=== PATIENT | female | born 1955 | race Caucasian/White ===

== ENCOUNTER 2024-05-11 14:14 | Outpatient (AMB) | payer MEDICARE, BC, SELFPAY ==
[2024-05-11 14:46] VITALS: BP 138/82; PULSE 78; O2SAT 98; BMI 37.0
--- NOTE | 2024-05-11 14:46 | A.OFFVIS_ITS ---
Vital Signs 05/11/24 14:46 Height 5 ft 7 in Weight 236 lb 8.896 oz BMI 37.0 BP 138/82 Blood Pressure Location Lt brachial Position Sitting Pulse 78 Pulse Source Pulse Oximeter Pulse Oximetry (%) 98 Oxygen Delivery Method Room Air Intake Visit Reasons: RA//RECORDS RECEIVED Intake Note: Patient presents today for rheumatoid arthritis, She was last seen [facility] the [facility] by Dr. Foster on 01/12/24. She is requesting refill of Colchicine today. Allergies cat dander Allergy (Mild, Verified 05/11/24 14:52) Watery Eye environmental allergies Allergy (Mild, Verified 05/11/24 14:52) Itching ragweed pollen Allergy (Mild, Verified 05/11/24 14:52) Itchy Eyes goldenrod Allergy (Mild, Uncoded 05/11/24 14:52) Sneezing oak trees Allergy (Mild, Uncoded 05/11/24 14:52) Sneezing Medication List - Last Reconciled 05/11/24 by Flavio Foster MD allopurinol 300 mg PO DAILY colchicine 1.2 mg PO DAILY omeprazole 40 mg PO DAILY tofacitinib (Xeljanz) 5 mg PO DAILY HPI HPI RA//RECORDS RECEIVED: Details: No rheumatoid arthritis flares. Right knee pain was controlled until last month. She has difficulty time walking. She has gained weight. No gout flares. Rheumatology history: History of rheumatoid arthritis seronegative with onset 2008. Since sulfasalazine was ineffective and she had GI side effects. Failed Enbrel 11/09/2010 to 12/11/2011, Humira 12/11/2011 to 06/11/2017, Cimzia 06/11/2018 to 11/09/2017. Xeljanz 11/09/2017-. Osteoarthritis right knee cortisone injection December 2023. Physical Exam Vital Signs: Last Vital Signs Pulse 78 05/11/24 14:46 BP 138/82 05/11/24 14:46 Pulse Ox 98 05/11/24 14:46 Oxygen Delivery Method Room Air 05/11/24 14:46 BMI result Body Mass Index 37.0 Const General: cooperative and healthy appearing Resp Auscultation: clear to auscultation bilaterally Cardio Rate: regular rate Rhythm: regular rhythm Heart sounds: S1 normal heart sound present and S2 normal heart sound present Extrem Other: Tender right MCPs and PIP knees. No synovitis of any joints, good range of motion of upper extremities. Tender to palpate right knee with mild effusion. Knee flexion 90 degrees of bilateral knees Office Procedures AMB Joint Injection/Aspiration Joint Injection/Aspiration Primary Site: right knee Prep: site was prepped using aseptic technique Injected: 40 mg of, Kenalog and 1% plain lidocaine Approach Used: anteromedial Procedure: The patient tolerated the procedure well Coding 65200 - Large joint Procedure code (CPT) selection complete Office Meds Kenalog 40 mg/mL suspension for injection Performing Provider: Flavio Foster MD Performing Location: [facility] Administered by: Flavio Foster MD on 05/11/24 23:46 Dose Route Admin Location Dispensed Lot Number Expiration Date [facility][NOTE 3] [employer] 40 mg intra-articular Right knee 1 mL AP [id number] [employer] lidocaine (PF) 10 mg/mL (1 %) injection solution Performing Provider: Flavio Foster MD Performing Location: [facility] Administered by: Flavio Foster MD on 05/11/24 23:46 Dose Route Admin Location Dispensed Lot Number Expiration Date [facility][NOTE 3] [employer] Equipment [employer]r 10 mg Infiltration Right knee 2 mL [id number] [facility] Assessment & Plan Assessment & Plan (1) Rheumatoid arthritis: Comment: Controlled on current regimen Code(s): M06.9 - Rheumatoid arthritis, unspecified Category: Medical Plan: Continue Xeljanz 5 mg daily Labs for disease and drug monitoring ordered including fasting lipid panel Return to clinic in 3 months (2) Osteoarthritis of knees, bilateral: Comment: Right knee pain is worse than left knee pain. She received benefit with right knee cortisone injection last visit in December. Code(s): M17.0 - Bilateral primary osteoarthritis of knee Category: Medical Plan: Right knee cortisone injection was given this visit Bilateral knee x-rays have been ordered for baseline at [facility] (3) Gout: Comment: Controlled on current regimen. Goal uric acid level is less than 6 Code(s): M10.9 - Gout, unspecified Category: Medical Qualifiers: Gout site: unspecified site Gout etiology: unspecified cause Chronicity: chronic Presence of tophus: without tophus Qualified Code(s): M1A.9XX0 - Chronic gout, unspecified, without tophus (tophi) Plan: If uric acid level is less than 6, we will have patient repeat uric acid level in 1 month. If uric acid level remains less than 6, can discontinue colchicine and continue allopurinol 300 mg daily. 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 Category: Medical Plan: See above Orders: Orders Aspartate Amino Transferase Today M06.9 - Rheumatoid arthritis, unspecified, M17.0 - Bilateral primary osteoarthritis of knee, Z79.899 - Other superintendent [employer] (current) drug therapy Complete Blood Count Auto Diff Today M06.9 - Rheumatoid arthritis, unspecified, Z79.899 - Other superintendent [employer] (current) drug therapy Creatinine Today M06.9 - Rheumatoid arthritis, unspecified, Z79.899 - Other senior care (current) drug therapy XR knee LT 2V Today M17.0 - Bilateral primary osteoarthritis of knee AMB Joint Injection/Aspiration Today M17.0 - Bilateral primary osteoarthritis of knee Alanine Aminotransferase Today M06.9 - Rheumatoid arthritis, unspecified, M17.0 - Bilateral primary osteoarthritis of knee, Z79.899 - Other superintendent [employer] (current) drug therapy C Reactive Protein Today M06.9 - Rheumatoid arthritis, unspecified, Z79.899 - Other superintendent [employer] (current) drug therapy Erythrocyte Sedimentation Rate Today M06.9 - Rheumatoid arthritis, unspecified, Z79.899 - Other senior care (current) drug therapy Hepatitis B,C Profile Today M06.9 - Rheumatoid arthritis, unspecified, Z79.899 - Other senior care (current) drug therapy T Spot TB Today M06.9 - Rheumatoid arthritis, unspecified, Z79.899 - Other senior care (current) drug therapy Uric Acid Today M10.9 - Gout, unspecified Lipid Panel Today M06.9 - Rheumatoid arthritis, unspecified, Z79.899 - Other superintendent [employer] (current) drug therapy XR knee RT 2V Today M17.0 - Bilateral primary osteoarthritis of knee Medications: New colchicine 1.2 mg (2 x 0.6 mg) PO DAILY 30 tabs 5RF lidocaine (PF) 10 mg Infiltration ONCE 2 mL 0RF M17.0 - Bilateral primary osteoarthritis of knee Kenalog (triamcinolone acetonide) 40 mg intra-articular ONCE 1 mL 0RF NS M17.0 - Bilateral primary osteoarthritis of knee Coding Level of Care Code Est Pt Level 4 (02779) Complex EM visit Add On G2211 Diagnoses Rheumatoid arthritis M06.9 Osteoarthritis of knees, bilateral M17.0 Chronic gout without tophus, unspecified cause, unspecified site M1A.9XX0 Gout site: unspecified site Gout etiology: unspecified cause Chronicity: chronic Presence of tophus: without tophus Other superintendent [employer] (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
== END 2024-05-11 15:43 | disposition home or self-care (01) ==
PROVIDERS: PCP Internal Medicine; Visit Provider Internal Medicine Rheumatology
DX: M06.9 Rheumatoid arthritis, unspecified (principal); M17.0 Bilateral primary osteoarthritis of knee; M1A.9XX0 Chronic gout, unspecified, without tophus (tophi); Z79.899 Other long term (current) drug therapy
CPT/HCPCS: 20610; 99214

== ENCOUNTER → 2024-05-11 14:14 | Outpatient (BNVA) | payer MEDICARE, BC, SELFPAY | PROVIDERS: PCP Internal Medicine; Visit Provider Internal Medicine Rheumatology | DX: M06.9 Rheumatoid arthritis, unspecified (principal); M17.0 Bilateral primary osteoarthritis of knee; M1A.9XX0 Chronic gout, unspecified, without tophus (tophi); Z79.899 Other long term (current) drug therapy | CPT/HCPCS: 20610; 99212; J2003; J3300 ==

== ENCOUNTER 2024-08-04 13:53 | Outpatient (REF) | payer MEDICARE, BC, SELFPAY ==
--- NOTE | ~2024-08-04 | XR_ITS ---
CLINICAL HISTORY: M17.0 - Bilateral primary osteoarthritis of knee 2 view bilateral knee Comparison: None Findings: There is medial joint space compartment narrowing. There are moderate-sized osteophytes and mild subchondral geodes. Small osteophytes within lateral compartment. There are ozuqo-[id number]-oaevvvoa patellofemoral osteophytes with mild joint space narrowing. Small suprapatellar effusion. There is osteopenia. No radiopaque foreign body. No acute fractures IMPRESSION: Tricompartmental osteoarthrosis most significant within the medial and patellofemoral compartments. Small suprapatellar effusion Osteopenia This document has been electronically signed by: Chago Antunez MD on 08/05/2024 08:27:33
--- NOTE | ~2024-08-04 | XR_ITS ---
CLINICAL HISTORY: M17.0 - Bilateral primary osteoarthritis of knee 2 view bilateral knee Comparison: None Findings: Bones intact. No dislocations. There is mild medial joint space compartment narrowing. There are tricompartmental osteophytes. There is a small suprapatellar effusion There is 2.6 cm density within the subcutaneous soft tissues lateral to the knee There is osteopenia. No radiopaque foreign body. IMPRESSION: Tricompartmental osteoarthrosis, no acute fractures Small suprapatellar effusion. Soft tissue density measuring proximally 2.6 cm within subcutaneous soft tissues lateral to knee, most likely mild soft tissue edema can not exclude subcutaneous lesion correlate with physical exam Osteopenia This document has been electronically signed by: Chago Antunez MD on 08/05/2024 08:26:12
[2024-08-04 14:28] LABS: MANUAL DIFF FLAG NO
[2024-08-04 14:44] LABS: Basophils Percent Auto 0.6 % (0-2); Eosinophils Absolute Auto 0.2 X10*3/uL (0.0-0.4); Hemoglobin 14.3 g/dl (12.0-16.0); Imm Gran Abs Auto 0.02 X10*3/uL (0.00-0.03); Imm Gran Pct Auto 0.3 % (0.0-0.4); Lymphocytes Absolute Auto 0.9 X10*3/uL (1.2-4.9); Lymphocytes Percent Auto 13.5 % (20-40); Mean Corpuscular HGB Conc 33.3 g/dl (31.0-35.0); Mean Corpuscular Hemoglobin 31.9 pg (27.0-33.0); Mean Platelet Volume 9.9 fL (9.4-12.3); Monocytes Absolute Auto 0.6 X10*3/uL (0.1-1.2); Monocytes Percent Auto 9.3 % (2-11); Neutrophils Absolute Auto 4.8 x10*3/uL (2.0-8.3); Neutrophils Percent Auto 73.3 % (45-73); Platelet Count 263 X10*3/uL (160-400); Red Blood Count 4.48 X10*6/uL (4.20-5.50); Red Cell Distribution Width 13.7 % (11.0-16.0); White Blood Count 6.6 X10*3/uL (4.8-10.8)
--- OUTSIDE RECORDS SUMMARY | 2024-08-04 15:16 | XMS_ITS | Data Portability ---
Author Organization [place] - [facility], Allergy Address [address] [address] Care Team Providers Care Set Off Press Operator Name Role Phone PETAR BARRIOS Primary Care Provider Assessment No assessment recorded. Plan of Treatment Reminders Order Date Submit Date Provider Last Modified By Organization Details Last Modified Time Details Appointments Hearing Test 2024 01:00P M Hearing Test Not available Not available Not available Establish ed 15 2024 01:30P M DOUG BARAJAS MD Not available Not available Not available Lab None recorded. Referral None recorded. Procedures None recorded. Surgeries None recorded. Imaging None recorded. Medication Orders fluticaso ne propionat e 50 mcg/actua tion nasal spray,[facility] 2023 024 [id number], [address] [place], [address], 02/13/2024 13:28:30 cetirizin e 10 mg tablet 2023 024 [id number], [address] [place], [address], 02/13/2024 13:28:31 Patient TargetsNo targets recorded. Patient InstructionsNo instructions recorded. Reason for Referral None Reported. Results Created Date Observation Date Name Description Value Unit Range Abnormal Flag Note LastModifiedBy Organization Detail LastModifiedTime 02/11/2009/09/2022 imagi ng/di agnos tic resul t No observ ation record ed. [email or web address] Not Available 17:56:42 02/11/20 06/02/2023 imagi ng/di agnos tic resul t No observ ation record ed. [email or web address] Not Available 17:56:53 02/11/20 24 06/02/2023 audio gram No observ ation record ed. [email or web address] Not Available 17:57:04 Result Notes None recorded. Problems Name Problem SNOMED Code Status Onset Date Resolution Date Notes Provider Name and Address Organization Details Recorded Time Chronic serous otitis media of right ear 925855198 Active 2022 Chronic serous otitis media, right ear; Note: Date Diagnosed : 3 12:33 PM (H65.21) Not Available [facility] 4 03:19:55 Sensorine ural hearing loss in left ear 07814690245 109 Active 2022 Sensorine ural hearing loss, unilatera l, left ear, with restricte d hearing on the contralat eral side; Note: Date Diagnosed : 3 11:17 AM (H90.A22) Not Available [facility] 4 03:19:54 Disorder of nasal sinus 1347381 Active 2022 Unspecifi ed disorder of nose and nasal sinuses; Note: Date Diagnosed : 3 1:17 AM (J34.9) Not Available [facility] 4 03:19:54 Disorder of the nose 03719452 Active 2022 Unspecifi ed disorder of nose and nasal sinuses; Note: Date Diagnosed : 3 1:17 AM (J34.9) Not Available [facility] 4 03:19:54 Sensorine ural hearing loss of bilateral ears 109952371 Active 2022 Sensorine ural hearing loss, bilateral ; Note: Date Diagnosed : 3 10:51 AM (H90.3) Not Available [facility] 4 03:19:54 Disorder of right Eustachia n tube 27260806600 12712 Active 2022 Other specified disorders of Eustachia n tube, right ear; Note: Date Diagnosed : 3 10:51 AM (H69.81) Not Available [facility] 4 03:19:55 Mixed conductiv e and sensorine ural hearing loss of right ear 17164331456 105 Active 2022 Mixed conductiv e and sensorine ural hearing loss, unilatera l, right ear with restricte d hearing on the contralat eral side; Note: Date Diagnosed : 3 10:51 AM (H90.A31) Not Available [facility] 4 03:19:55 Allergic rhinitis 87871556 Active 2023 DOUG BARAJAS MD [address] [place] [address], [place], [address] , [facility] - [facility] 4 13:27:40 Problem Notes None recorded. Procedures Surgical History None recorded. Imaging Results Imaging Date Name Status LastModified by [facility] Details LastModified Time 09/09/2022 imaging/diagno stic result completed [email or web address] Information not available 02/11/2024 17:56:42 06/02/2023 imaging/diagno stic result completed [email or web address] Information not available 02/11/2024 17:56:53 06/02/2023 audiogram completed [email or web address] Information not available 02/11/2024 17:57:04 Procedure Notes None recorded. Medical Equipment None Reported. Allergies No known drug allergies Medications Name Sig Start Date Stop Date Status Note LastModified by Organization Details LastModified Time cetirizin e 10 mg tablet TAKE 1 TABLET BY MOUTH EVERY DAY FOR 30 DAYS 2023 active Not Available Not Available Not Avai lable ciproflox acin 250 mg tablet TAKE 1 TABLET (250 MG TOTAL) BY MOUTH IN THE MORNING AND IN THE EVENING FOR 5 DAYS 02/12 completed Not Available Not Available Not Available ciproflox acin 500 mg tablet TAKE 1 TABLET BY MOUTH TWICE A DAY FOR 7 DAYS 02/12 completed Not Available Not Available Not Available omeprazol e 40 mg capsule,d elayed release active Medicati on ID: [id number] B rand Name: omeprazo le Send Method: E-Prescr ibed Sub s Allowed: subs OK Medic ationGen ericName : omeprazo le Not Available Not Available Not Available ofloxacin 0.3 % ear drops INSTILL 5 DROP IN AFFECTED EARS(S) TWICE A DAY DIRECTED active Not Available Not Available No t Available allopurin ol 300 mg tablet active Medicati on ID: [id number] B rand Name: allopuri nol Send Method: E-Prescr ibed Sub s Allowed: subs OK Medic ationGen ericName : allopuri nol Not Available Not Available Not Available ergocalci ferol (vitamin D2) 1,250 mcg (50,000 unit) capsule TAKE 1 CAPSULE (50,000 UNITS TOTAL) BY MOUTH ONCE WEEKLY active Not Available Not Available No t Available colchicin e 0.6 mg tablet active Medicati on ID: [id number] B rand Name: colchici ne Send Method: E-Prescr ibed Sub s Allowed: subs OK Medic ationGen ericName : colchici ne Not Available Not Available Not Available fluticaso ne propionat e 50 mcg/actua tion nasal spray,[employer] pension [place] 2 sprays every day by intranas al route for 30 days. active Not Available Not Available No t Available rosuvasta tin 5 mg tablet TAKE 1 TABLET BY MOUTH EVERY DAY active Not Available Not Available No t Available Xeljanz 5 mg tablet active Not Available Not Available No t Available Vitals Date Recorded Body height Body mass index (BMI) Body weight Provider Name and Address Organization Details Last Updated DateTime 02/13/2024 170.18 cm 36 kg/m2 186650.25 g Heather Villalta [place] - [facility] 02/13/2024 13:12:27 Social History None recorded. Functional Status None recorded. Mental Status None recorded. Family History Nothing Reported Notes:Ears: Hearing loss aft er age 19 - brother(s). Hearing loss before age 20 - brother(s). Cardiovascular: Heart disease in a female, diagnosed at unknown age - mother. Medical History Condition Response Allergies/Hayfever Y GERD/Reflux Y Gynecological HistoryNo gynecological history recorded. Obstetrics History GPAL:G 0 P 0 0 0 0 Past Encounters Encounter ID Performer Location Encounter Start Date Encounter Closed Date Diagnosis/Indication Diagnosis SNOMED-CT Code Diagnosis ICD10 Code Diagnosis Note [id number] DOUG BARAJAS MD [facility] [address] [place] [address] 02/13/2024 13:05:43 02/13/2024 13:37:28 Allergic rhinitis [id number] J30.9 68-year-ol d female with a history of allergic rhinitis presents with right-side d ear pain. It was previously more severe and shooting and is now more sore. The tube is in place and patent. There is no evidence of ear infection. She has not been on her allergy shots with Dr. Wagner and is not taking any allergy medication s, so we did discuss that that allergies could be a risk factor for the pain. I sent in antihistam nathanael and nasal steroids and she will resume her allergy injections . We can evaluate for other source of referred pain with FOL if no improvemen t in the next few weeks. She will call us and otherwise we will see her back in 6 months to check the tube. Disorder o f right Eustachian tube [id number] 232957 H69.81 Health Concerns Section Related Observation LastModified by Organization Detai ls LastModified Time None Recorded Concern Status LastModified by Organization Details LastModified Time None Recorded Advance Directives Directive None Recorded Payers Encounter Date Sequence Insurance Name Policy Number Policy Solo Covered Member ID Solo Member ID Guarantor Name 02/13/2024 1 [place] [employer] Flaquita Cali Ish [id number] 20 Flaquita Ish 02/13/2024 2 [place] [employer] 104 Flaquita Cali Ish [id number] Flaquita Ish Notes Date Note Type Note Provider Name and Address Organization Details Recorded Time 02/13/2024 text/html Shooting pain la in right ear, better by Friday. Pain stopped as of last night, but still sore on the right. Has not been getting allergy shots. Feels there has been some nasal congestion. Has had frequent URIs. PV: 67-year-old female with a long-standing hearing loss in a history of right tympanostomy tube placed by Dr. Gonzalez today with effusion for over a year. Audiogram in Dr. Wagner's office in August showed right year severe to profound mixed loss and left moderate tosevere sensorineural loss. Tube placed last May, NPL showed no mass. DOUG BARAJAS MD [address] [place] [address], [place], [address], [place] - [facility] 02/13/2024 17:41:42 OBGyn Episode No OBEpisode recorded.
--- OUTSIDE RECORDS SUMMARY | 2024-08-04 15:16 | XMS_ITS | Clinical Summary ---
Author Organization [facility] it Address [address] [place] [address] Care Team Providers Care Warehouse Coordinator Name Role Phone Vincent Polanco MD Primary Care Provider [phone] Encounters Date Type Department Care Team Description 05/14/2024 Telephone Nuclear Auxiliary Operator - [address] [place] [id number] Amy Ceballos MA Medicare Annual Wellness Visit Subsequent (AWV DUE 2023) from Last 3 Months Surgical History Surgery Date Site/Laterality Comments OTHER SURGICAL HISTORY 10/26 PROCEDURE: [facility] DILATION & CURETTAGE DX&/THER NONOBSTETRIC; COMMENT: 2.5 cm benign polyp removed SHOULDER SURGERY 04/27 PROCEDURE: [facility] UNLISTED PROCEDURE SHOULDER; COMMENT: bone spur and dog bite repair ESOPHAGOGASTRODUODENOSCOPY 10/09/07 PROCEDURE: [facility] EGD TRANSORAL BIOPSY SINGLE/MULTIPLE; COMMENT: Small hiatal hernia, gastric polyp removed:normal mucosa, gastric bx:reactive gastropathy COLONOSCOPY 10/09/07 PROCEDURE: HISTORICAL COLONOSCOPY; COMMENT: Up to cecum, good preparation, normal ROTATOR CUFF REPAIR ?2002 PROCEDURE: HISTORICAL ROTATOR CUFF REPAIR; COMMENT: right - ? just decompressive surgey OTHER SURGICAL HISTORY 12/2019 Right PROCEDURE: [place] UNLISTED PROCEDURE MIDDLE EAR; COMMENT: myringotomy and tube Medical History Medical History Date Comments Unspecified hearing loss 10/18/2005 DX:Unsp ecified hearing loss Irregular menstrual cycle 11-23-04 DX:Irr egular menstrual cycle; COMMENT: EMB=tissue normal Insomnia, unspecified 09/15/2006 DX:Insomni a, unspecified Anxiety state, unspecified 2005 DX:An xiety state, unspecified Other abnormal Papanicolaou smear of cervix and cervical HPV(795.09) 5-6-05 DX:Other abnormal Papa nicolaou smear of cervix and cervical HPV(795.09); COMMENT: ASCUS with negative HPV Rheumatoid arthritis(714.0) 03/27/2010 DX:R heumatoid arthritis(714.0) Elevated transaminase level 08/20/2019 DX:E levated transaminase level Family History Medical History Relation Name Comments Heart attack Father Heart attack Mother Breast cancer Neg Hx Relation Name Status Comments Father Mother Social History Tobacco Use Types Packs/Day Years Used Date Smoking Tobacco: Never Smokeless Tobacco: Never Alcohol Use Standard Drinks/Week Comments Yes 0 (1 standard drink = 0.6 oz pur e alcohol) Comments Unknown Sex and Gender Information Value Date Recorded Sex Assigned at Not on file Legal Sex Female 11:34 AM EST Gender Identity Not on file Sexual Orientation Not on file Obstetrics History Last Filed Vital Signs Vital Sign Reading Time Taken Comments Blood Pressure 152/85 10/22/2023 1:19 PM EDT aut o Pulse 86 10/22/2023 1:19 PM EDT Temperature - - Respiratory Rate - - Oxygen Saturation - - Inhaled Oxygen Concentration - - Weight 107 kg (236 lb 14.4 oz) 10/22/2023 1:19 P M EDT Height 170.2 cm (5' 7 ) 10/22/2023 1:19 PM EDT Body Mass Index 37.1 10/22/2023 1:19 PM EDT Plan of Treatment Health Maintenance Due Date Last Done Comments Hepatitis A Vaccines (1 of 2 - Risk 2-dose series) 1973 Zoster Vaccines (1 of 2) 2004 Cholesterol Screening (Lipid Panel) 05/21/2022 Colorectal Cancer Screening: Colonoscopy 05/21/2022 Depression Screening 05/21/2022 Falls Risk Assessment 05/21/2022 Hepatitis C Screening 05/21/2022 Medicare Annual Wellness Visit 05/21/2022 Osteoporosis Screening (Bone Density Screening) 05/21/2022 Social Influencers of Health Screening 05/21/2022 COVID-19 Vaccine ( season) 2024 07/17/2023, 09/27/2021, 10/08/2020, Additional history exists Influenza Vaccine (#1) 2024 3, 05/29/2022, 04/25/2021, Additional history exists Breast Cancer Screening 04/11/2025 04/11/20, 10/16/2021, 10/11/2020, Additional history exists RSV Immunization Patients 60+ Years Old (1 - 1-dose 75+ series) 2029 DTaP,Tdap,and Td Vaccines (3 - Td or Tdap) 10/08/2032 10/08/2022, 09/29/2012 Pneumococcal Vaccine: 50+ Years Completed 03/20/2020, 09/12/2014, 08/28/2010 HIB Vaccines Aged Out No longer eligi ble based on patient's age to complete this topic HPV Vaccines Aged Out No longer eligi ble based on patient's age to complete this topic Hepatitis B Vaccines Aged Out No long er eligible based on patient's age to complete this topic IPV Vaccines Aged Out No longer eligi ble based on patient's age to complete this topic MMR Vaccines Aged Out No longer eligi ble based on patient's age to complete this topic Meningococcal ACWY Vaccine Aged Out N o longer eligible based on patient's age to complete this topic RSV Immunization Patients Under 20 months Aged Out No longer eligible based on patient's age to complete this topic Varicella Vaccines Aged Out No longer eligible based on patient's age to complete this topic Procedures Procedure Name Priority Date/Time Associated Diagnosis Comments [facility] SCREENING DIGITAL Routine 04/11/2023 5:06 PM EDT Encounter for screening mammogram for malignant neoplasm of breast from Last 3 Months or Most Recently Relevant to Health Maintenance Results * [facility] SCREENING DIGITAL (04/11/2023 5:06 PM EDT) Anatomical Region Laterality Modality Mammography 04/11/2023 2:09 PM EDT Narrative 04/11/2023 5:06 PM EDT [facility] Diagnostic Imaging Department [address] [place] [id number] Patient: ??FLAQUITA MA ?/Age/Sex: 1955 - 67 - F Unit#: ??[id number] ? Location/Status: ??SPDIMAM/REG CLI ? Mnemonic/Ordering Site: ??DIGSC/SPMAM Ordering Physician: ??BLOSSOM ABRAMS MD [facility] Screening Digital - 04/11/23 - [id number] Report Status:Signed EXAM: [facility] Screening Digital EXAM DATE AND TIME: 04/11/2023 2:37 PM HISTORY: ??Screening. COMPARISON: ??10/16/21, 10/17/20, 10/11/20, 05/31/19 TECHNIQUE: Bilateral digital breast tomosynthesis was performed in the CC and MLO projections. Computer aided detection with firstSTREET for [employer] 3D 3.1 was employed. TISSUE DENSITY: b. There are scattered areas of fibroglandular density. FINDINGS: A small group of microcalcifications is seen in the medial left breast, middle depth, with an associated tissue asymmetry. Spot compression magnification views are recommended for further assessment. No mass or suspicious microcalcifications is seen in the right breast. No architectural distortion is identified. Vascular calcification is noted. The skin is unremarkable. IMPRESSION: 1. Grouped microcalcifications in the left breast, for which additional views are recommended. The patient will be called back. 2. Stable mammographic appearance of the right breast. No evidence of malignancy is seen. BI-RADS: ??Category 0: Incomplete - Need Additional Imaging Evaluation RECOMMENDATION(S): 1: Special mammographic view(s) needed LEFT Dictating Physician: ??REID GEORGE MD Electronically Signed by: ??REID GEORGE MD Dic Date/Time: ??10/20/23 1704 Sign date/Time: ??04/11/23 1706 Procedure Note Reid George MD - 07/29/2023 [facility] Diagnostic Imaging Department [address] [place] [address] Patient: FRANCESCAFLAQUITA /Age/Sex: 1955 67 - F Unit#: [id number] Location/Status: [facility] CLI Mnemonic/Ordering Site: [facility] Ordering Physician: BLOSSOM ABRAMS MD [facility] Screening Digital - 04/11/23 - [id number] Report Status:Signed EXAM: [facility] Screening Digital EXAM DATE AND TIME: 04/11/2023 2:37 PM HISTORY: Screening. COMPARISON: 10/16/21, 10/17/20, 10/11/20, 05/31/19 TECHNIQUE: Bilateral digital breast tomosynthesis was performed in the CCand MLO projections. Computer aided detection with firstSTREET for [employer] 3D 3.1was employed. TISSUE DENSITY: b. There are scattered areas of fibroglandular density. FINDINGS: A small group of microcalcifications is seen in the medial left breast,middle depth, with an associated tissue asymmetry. Spot compression magnificationviews are recommended for further assessment. No mass or suspicious microcalcifications is seen in the right breast.No architectural distortion is identified. Vascular calcification is noted.The skin is unremarkable. IMPRESSION: 1. Grouped microcalcifications in the left breast, for which additionalviews are recommended. The patient will be called back. 2. Stable mammographic appearance of the right breast. No evidence of malignancy is seen. BI-RADS: Category 0: Incomplete - Need Additional Imaging Evaluation RECOMMENDATION(S): 1: Special mammographic view(s) needed LEFT Dictating Physician: REID GEORGE MD Electronically Signed by: REID GEORGE MD Dic Date/Time: 04/11/231703 Sign date/Time: 04/11/231705 us Blossom Abrams MD IMG BI PROCEDURES Final Resu lt from Last 3 Months or Most Recently Relevant to Health Maintenance Care Teams Warehouse Coordinator Relationship Specialty Start Date End Date Vincent Polanco MD PCP - General 07/12/02
--- OUTSIDE RECORDS SUMMARY | 2024-08-04 15:16 | XMS_ITS | Data Portability ---
Author Organization [place] [facility],, BLOSSOM MEJIA MD Address [address] [address] Care Team Providers Care Environmental Emergencies Planner Name Role Phone PETAR BARRIOS Assessment No assessment recorded. Plan of Treatment Reminders Order Date Submit Date Provider Last Modified By Organization Details Last Modified Time Details Appointments None recorded. Lab urinalysi s, dipstick 2014 015 [email or web address] 1 In-Office Order, Internal Use Only DO Not Attach Compendium DO Not Attach Compendium, Do Not Delete/merge, [id number] 5 13:05:27 culture, urine 2014 015 [employer], [address] [place], [address], 5 04:35:29 urinalysi s, dipstick 2016 017 [email or web address] 1 In-Office Order, Internal Use Only DO Not Attach Compendium DO Not Attach Compendium, Do Not Delete/merge, [id number] 7 09:58:32 culture, urine 2016 017 ARISTIDES In-Office Order, Internal Use Only DO Not Attach Compendium DO Not Attach Compendium, Do Not Delete/merge, [id number] 7 04:21:04 pap test, thinprep, cervical 2016 017 [facility], Cytopathology Service, [address] [place], [address], 7 13:30:28 fecal occult blood, stool 2016 017 ARISTIDES In-Office Order, Internal Use Only DO Not Attach Compendium DO Not Attach Compendium, Do Not Delete/merge, [id number] 7 10:42:47 urinalysi s, dipstick 2018 019 [email or web address] In-Office Order, Internal Use Only DO Not Attach Compendium DO Not Attach Compendium, Do Not Delete/merge, [id number] 9 15:15:53 culture, urine 2018 019 [employer], [address] [place], [address], 9 14:20:54 pap test, thinprep, cervical 2018 019 [facility], Cytopathology Service, [address] [place], [address], 9 16:48:00 fecal occult blood, stool 2018 019 ARISTIDES In-Office Order, Internal Use Only DO Not Attach Compendium DO Not Attach Compendium, Do Not Delete/merge, [id number] 9 13:56:30 urinalysi s, dipstick 2018 019 [email or web address] 1 In-Office Order, Internal Use Only DO Not Attach Compendium DO Not Attach Compendium, Do Not Delete/merge, [id number] 9 15:14:54 culture, urine 2018 019 [employer], [address] [place], [address], 9 13:49:02 pap test, thinprep, cervical 2022 023 [email or web address] [facility], [facility] [address], [place], [address], 3 07:26:54 Referral None recorded. Procedures None recorded. Surgeries None recorded. Imaging MAMMO, screening , digital, bilateral 2016 017 [facility] [address], [place], [address], 7 12:57:35 MAMMO, screening , digital, bilateral 2018 019 [facility]), [address] [place], [address], 9 16:22:09 MAMMO, screening , digital, bilateral - Breast Aspiratio n and/or Biopsy if needed 2022 023 [facility], [address] [facility], [facility], [place], [address], 4 07:46:26 bone density 2022 023 [facility] [address] [place], [address], 4 07:46:26 Medication Orders nitrofura ntoin monohydra te/macroc rystals 100 mg capsule 2016 017 [email or web address] Not available 3 14:35:23 nitrofura ntoin monohydra te/macroc rystals 100 mg capsule 2018 019 [email or web address] Not available 3 14:35:23 Patient TargetsNo targets recorded. Patient Instructions Encounter Date Encounter Id Patient Instructions Last Modified By Organization Details Last Modified Time 01/30/2015 [id number] urinary tract infection in women information [email or web address] Not available 01/30/2015 13:50:14 She is here for her CAREY after recent UTI.? ? ? Her urine dip still has some WBC, check C and S.? ? ? Ways to prevent recurrences discussed. Face to face discussion 15 minutes jen Not available 01/30/2015 13:05:27 03/24/2017 [id number] urinary tract infection in women information [email or web address] Not available 03/24/2017 10:40:08 She is here for annual exam, she retired in November and is doing well but put on weight because she is not walking as much as she did when she was working. She became sick in mid January,, with the flu, she called her PCP who advised her to go to the ED, she went to a walk in clinic and was sent to the ED because, my kidney was only working 15% and they told me I had to go to the hospital or I was going to . She was in hospital from 02/09 to 02/14/17. She took cipro 03/11/17 fro a UTI but she notes recurrence of the sense of pressure in her mid suprapubic area. She was taken off the celebrex, HRT, and they upped the mg of hte acide reflux from 20 to 40 mg, stopped the ambien. She still takes Candi injection. She notes that she has been having severe hot flashes every half hour, my whole body feels like it is on fire. She will disucss possibly restarting her HRT with her nephorologist nad then get back to me. She appears to possibly have a recurrent UTI. RX macrobid for 7 days, check urine culture. She appears to be doing well. She is advised to get 1500 mg of calcium daily into her diet and supplements combined. We discussed the benefits of adequate vitamin D supplementation to at least 400 units daily, daily aerobic exercise of 30 minutes, and stress reduction. Monthly self breast exam was taught, and stressed, and is advised to call if she discovers any new mass in the breast. Seat belt use for herself and passengers advised. The significant health benefits of becoming and remainig fit, with an optimal BMI, were also discussed. We discussed the potential reduction in chronic discomfort, the diminished risks of hypertension, diabetes, and heart disease with the proper weight management, and improved mobility as she ages. Strategies to reach and maintain her target weight wer discussed in detail, all questions answered. Not available 03/24/2017 10:38:35 07/09/2018 [id number] urinary tract infection in women information Not available 07/09/2018 13:55:22 painful urinatio n (dysuria): care instructions Not available 07/09/2018 13:37:23 She is here for annual exam but also has dysuria and increased nocturia for a few days, she saws Dr. Rosado 3 days ago, was given prednisone and meds for gout. She had unbearable pain to walk on [place] 's pearl, was diagnosed with gout. Note from 03/2017: She is here for annual exam, she retired in November and is doing well but put on weight because she is not walking as much as she did when she was working. She became sick in mid January,, with the flu, she called her PCP who advised her to go to the ED, she went to a walk in clinic and was sent to the ED because, my kidney was only working 15% and they told me I had to go to the hospital or I was going to . She was in hospital from 02/09 to 02/14/17. She took cipro 03/11/17 fro a UTI but she notes recurrence of the sense of pressure in her mid suprapubic area. She was taken off the celebrex, HRT, and they upped the mg of hte acide reflux from 20 to 40 mg, stopped the ambien. She still takes Candi injection. She notes that she has been having severe hot flashes every half hour, my whole body feels like it is on fire. She will disucss possibly restarting her HRT with her nephorologist nad then get back to me. She appears to possibly have a recurrent UTI. RX macrobid for 7 days, check urine culture. She appears to be doing well. She has an active UTI by history nad urine dip, rx macrobid, reutrn for CAREY. Ways ot prevent recurrences discussed. She is advised to get 1500 mg of calcium daily into her diet and supplements combined. We discussed the benefits of adequate vitamin D supplementation to at least 400 units daily, daily aerobic exercise of 30 minutes, and stress reduction. Monthly self breast exam was taught, and stressed, and is advised to call if she discovers any new mass in the breast. Seat belt use for herself and passengers advised. The significant health benefits of becoming and remainig fit, with an optimal BMI, were also discussed. We discussed the potential reduction in chronic discomfort, the diminished risks of hypertension, diabetes, and heart disease with the proper weight management, and improved mobility as she ages. Strategies to reach and maintain her target weight wer discussed in detail, all questions answered. Not available 07/09/2018 13:55:21 07/24/2018 [id number] urinary tract infection in women information Not available 07/24/2018 15:20:55 she is here for CAREY after UTI treated with macrobid, to which it was sensitive. She feels much improved, the pressure is gone. We discused ways to prevent recurrent UTI. Check urine culture, dip suggests the infection is resolved. All questions answered. Face to face discussion 15 minutes Not available 07/24/2018 15:54:40 05/06/2023 [id number] gout: care instructions Not available 05/06/2023 15:14:36 Rheumatoid Arthritis (RA): Care Instructions Not available 05/06/2023 15:14:36 atrophic vaginit is: care instructions Not available 05/06/2023 15:10:55 learning about healthy weight Not available 05/06/2023 15:10:55 She is here for annual, has not been here since 2019. She had been advised that we did not take new Medicare patients however she started she had [employer] insurance. When she arrived today she stated she actually had Medicare insurance. We advised her that we cannot treat different patients differently in regards to insurance acceptance, and so we will see her today as she is here and in need of care, she had an abnormal mammogram last week and needs a breast biopsy and is very concerned she will not have a title vehicle service attendant doctor to refer her to the surgery department. However once this exam and the breast issues are resolved then she will need to find a title vehicle service attendant doctor who accepts new Medicare. She understands and appreciates that we are managing this abnormal mammogram for her. Note from 2019: She is here for annual exam but also has dysuria and increased nocturia for a few days, she saws Dr. Rosado 3 days ago, was given prednisone and meds for gout. She had unbearable pain to walk on ' pearl, was diagnosed with gout. She appears to be doing well. She has a new doctor managing er gout, and her rheumatoid arthritis. She sees her PCP for her fibromyalgia. She states that she would prefer to go to [facility] for surgery if her breast biopsy returns showing a need for surgery. We discussed this at length, all questions answered. Await breast biopsy results. Monthly self breast exam was taught, and stressed, and is advised to call if she discovers any new mass in the breast. Not available 05/06/2023 15:14:05 Reason for Referral None Reported. Results Created Date Observation Date Name Description Value Unit Range Abnormal Flag Note LastModifiedBy Organization Detail LastModifiedTime 03/24/2003/24/2017 urina lysis , dipst ick GLU Negati ve Not Available In-Office Order Internal Use Only DO Not Attach Compendium DO Not Attach Compendium, Do Not Delete/merge, [id number] 03/24/2017 09:53:59 03/24/20 17 03/24/2017 urina lysis , dipst ick PORFIRIO Negati ve Not Available In-Office Order Internal Use Only DO Not Attach Compendium DO Not Attach Compendium, Do Not Delete/merge, [id number] 03/24/2017 09:53:59 03/24/2003/24/2017 urina lysis , dipst ick KET Negati ve Not Available In-Office Order Internal Use Only DO Not Attach Compendium DO Not Attach Compendium, Do Not Delete/merge, [id number] 03/24/2017 09:53:59 03/24/20 17 03/24/2017 urina lysis , dipst ick SG 1.020 Not Available In-Office Order Internal Use Only DO Not Attach Compendium DO Not Attach Compendium, Do Not Delete/merge, [id number] 03/24/2017 09:53:59 03/24/2008 0403/24/2017 urina lysis , dipst ick BLO Hemoly zed : Trace Not Available In-Office Order Internal Use Only DO Not Attach Compendium DO Not Attach Compendium, Do Not Delete/merge, [id number] 03/24/2017 09:53:59 03/24/20 17 03/24/2017 urina lysis , dipst ick pH 5.0 Not Available In-Office Order Internal Use Only DO Not Attach Compendium DO Not Attach Compendium, Do Not Delete/merge, [id number] 03/24/2017 09:53:59 03/24/20 17 03/24/2017 urina lysis , dipst ick PRO Negati ve Not Available In-Office Order Internal Use Only DO Not Attach Compendium DO Not Attach Compendium, Do Not Delete/merge, [id number] 03/24/2017 09:53:59 03/24/20 17 03/24/2017 urina lysis , dipst ick URO 0.2 E.U. / dl Not Available In-Office Order Internal Use Only DO Not Attach Compendium DO Not Attach Compendium, Do Not Delete/merge, [id number] 03/24/2017 09:53:59 03/24/20 17 03/24/2017 urina lysis , dipst ick NIT negati ve Not Available In-Office Order Internal Use Only DO Not Attach Compendium DO Not Attach Compendium, Do Not Delete/merge, [id number] 03/24/2017 09:53:59 03/24/20 17 03/24/2017 urina lysis , dipst ick MARIO Small Not Available In-Office Order Internal Use Only DO Not Attach Compendium DO Not Attach Compendium, Do Not Delete/merge, [id number] 03/24/2017 09:53:59 03/24/20 17 03/24/2017 fecal occul t blood , stool Occult Blood negati ve Not Available In-Office Order Internal Use Only DO Not Attach Compendium DO Not Attach Compendium, Do Not Delete/merge, [id number] 03/24/2017 09:43:46 01/31/20 15 01/30/2015 urina lysis , dipst ick GLU Negati ve Not Available In-Office Order Internal Use Only DO Not Attach Compendium DO Not Attach Compendium, Do Not Delete/merge, 01/30/2015 09:43:02 01/31/20 15 01/30/2015 urina lysis , dipst ick PORFIRIO Negati ve Not Available In-Office Order Internal Use Only DO Not Attach Compendium DO Not Attach Compendium, Do Not Delete/merge, 01/30/2015 09:43:02 01/31/20 15 01/30/2015 urina lysis , dipst ick KET Negati ve Not Available In-Office Order Internal Use Only DO Not Attach Compendium DO Not Attach Compendium, Do Not Delete/merge, 01/30/2015 09:43:02 01/31/2001/30/2015 urina lysis , dipst ick SG 1.030 Not Available In-Office Order Internal Use Only DO Not Attach Compendium DO Not Attach Compendium, Do Not Delete/merge, 01/30/2015 09:43:02 01/31/20 15 01/30/2015 urina lysis , dipst ick BLO Negati ve Not Available In-Office Order Internal Use Only DO Not Attach Compendium DO Not Attach Compendium, Do Not Delete/merge, 01/30/2015 09:43:02 01/31/20 15 01/30/2015 urina lysis , dipst ick pH 5.0 Not Available In-Office Order Internal Use Only DO Not Attach Compendium DO Not Attach Compendium, Do Not Delete/merge, 01/30/2015 09:43:02 01/31/2001/30/2015 urina lysis , dipst ick PRO Negati ve Not Available In-Office Order Internal Use Only DO Not Attach Compendium DO Not Attach Compendium, Do Not Delete/merge, 01/30/2015 09:43:02 01/31/20 15 01/30/2015 urina lysis , dipst ick URO 0.2 E.U. / dl Not Available In-Office Order Internal Use Only DO Not Attach Compendium DO Not Attach Compendium, Do Not Delete/merge, 01/30/2015 09:43:02 01/31/2001/30/2015 urina lysis , dipst ick NIT negati ve Not Available In-Office Order Internal Use Only DO Not Attach Compendium DO Not Attach Compendium, Do Not Delete/merge, [id number] 01/30/2015 09:43:02 01/31/20 15 01/30/2015 urina lysis , dipst ick MARIO Small Not Available In-Office Order Internal Use Only DO Not Attach Compendium DO Not Attach Compendium, Do Not Delete/merge, [id number] 01/30/2015 09:43:02 01/31/20 15 01/30/2015 cultu re, urine comments [facility] [address] [facility] [place] [address] [phone] SOURC E: URINE ,ROBERT N CATCH ; Not Available [facility] [address] [place], [address], 02/03/2015 04:25:24 01/31/20 15 02/02/2015 cultu re, urine urine culture [facility] [address] [place] [address] URINE CULTU RE ADDIT IONAL COLON Y TYPE( S) PRESE NT IN INSIG NIFIC ANT AMOUN TS. F URINE CULTU RE ENTER OCOCC US FAECA LIS ( ENTFA E ) F URINE CULTU RE COLON Y COUNT F URINE CULTU RE 50,00 0-100 ,000 F Not Available [facility] [address] [place], [address], 02/03/2015 04:25:24 01/31/20 15 01/30/2015 antib iotic sensi tivit y, isola te comments PAREN T ORGAN ISM: ENTER OCOCC US FAECA LIS ( ENTFA E ) [facility] [address] [facility] [place] [address] [phone] SOURC E: URINE ,ROBERT N CATCH ; Not Available [facility] [address] [place], [address], 02/03/2015 04:24:22 01/31/20 15 02/02/2015 antib iotic sensi tivit y, isola te gram positive susceptibili ty [facility] [address] [place] [address] AMPIC ILLIN <=2 S F CIPRO FLOXA LIONEL 1 S F LEVOF LOXAC IN 1 S F LINEZ OLID 2 S F NITRO FURAN TOIN <=16 S F PENIC ILLIN 2 S F TETRA CYCLI NE >=16 R F TIGEC YCLIN E <=0.1 2 S F VANCO MYCIN 2 S F Not Available [facility] [address] [place], [address], 02/03/2015 04:24:22 03/24/20 17 03/24/2017 pap, LB [id number] ThinP rep Pap, Image d: NEGAT MONIKA FOR SQUAM OUS INTRA EPITH ELIAL LESIO N AND MALIG AGUILAR . Atrop hy with infla mmati on is prese nt. Haydee Urbina, CT( CP) (Case elect denilson sykes fernanda d 03 25 2017) ADEQU ACY: Satis facto ry. SOURC E: ThinP rep Pap HPV IF ASCUS , Cervi elo, Image d: CLINI ELO INFOR MATIO N: HPV If Diagn osis of ASCUS . Menop ause, lps 5 neg, z12.4 , z01.4 19 Not Available [facility], Cytopathology Service [address] [place], [address], 03/25/2017 13:30:28 03/24/20 17 03/24/2017 cultu re, urine comments [facility] [address] [facility] [place] [address] [phone] SOURC E: URINE ,ROBERT N CATCH ; Not Available [facility] [address] [place], [address], 03/26/2017 04:21:04 03/24/20 17 03/25/2017 cultu re, urine urine culture [facility] [address] [place] [address] [phone] COLLE CTION TIME: 2016 10:30 :00 AM -04:0 0 URINE CULTU RE No growt h F Not Available [facility] [address] [place], [address], 03/26/2017 04:21:04 07/09/19 19 07/09/2018 cultu re, urine comments [facility] [address] [place] [address] Medic al Direc tor - Allis on Mendez carrasquillo MD [facility] E: URINE ,ROBERT N CATCH ; Not Available [facility] [address] [place], [address], 07/12/2018 09:33:17 07/09/19 19 07/12/2018 cultu re, urine urine culture [facility] [address] [facility] [place] [address] Medic al Dire tor - Allis on Mendez carrasquillo MD COLLE CTION TIME: 2018 1:00: 00 PM -05:0 0 URINE CULTU RE ESCHE IMER A COLI ( ESCCO L ) F URINE CULTU RE COLON Y COUNT F URINE CULTU RE >100, 000 F Not Available [facility] [address] [place], [address], 07/12/2018 09:33:17 07/09/19 19 07/09/2018 pap, LB [id number] ThinP rep Pap, Image d: NEGAT MONIKA FOR SQUAM OUS INTRA EPITH ELIAL LESIO N AND MALIG AGUILAR . Joann simmons , CT( CP) (Case elect denilson sykes fernanda d 07 10 2018) ADEQU ACY: Satis facto ry Endoc ervic al/tr ansfo rmati on zone compo nent absen t. SOUR E: ThinP rep Pap HPV IF ASCUS , Cervi elo, Image d CLINI ELO INFOR MATIO N: HPV If Diagn osis of ASCUS . LPS NEG [Z12. 4] Not Available [facility], Cytopathology Service [address] [place], [address], 07/10/2018 16:48:00 07/09/19 19 07/09/2018 antib iotic sensi tivit y, isola te comments PAREN T ORGAN ISM: ESCHE IMER A COLI ( ESCCO L ) [facility] [address] [place] [address] Medic al Direc tor - Allis on Wasse foreign MD SOURC E: URINE ,ROBERT N CATCH ; Not Available [facility] [address] [place], [address], 07/12/2018 09:33:21 07/09/19 19 07/12/2018 antib iotic sensi tivit y, isola te gram negative susceptibili ty [facility], [facility] [address] [facility] [place] [address] Medic al Direc tor - Allis on Wasse foreign MD COLLE CTION TIME: 2018 1:00: 00 PM -05:0 0 TRIME THOPR IM/MILLER LFAME THOXA ZOLE <=20 S F AMOXI CILLI N/CLA VULAN IC ACID 4 S F AMPIC ILLIN 4 S F AMPIC ILLIN /SULB ACTAM <=2 S F CEFAZ EDILSON <=4 S F CEFTA ZIDIM E <=1 S F CEFTR IAXON E <=1 S F CEFEP MARTHA <=1 S F CIPRO FLOXA LIONEL <=0.2 5 S F ERTAP ENEM <=0.5 S F GENTA MICIN <=1 S F LEVOF LOXAC IN <=0.1 2 S F IMIPE NEM <=0.2 5 S F NITRO FURAN TOIN <=16 S F TOBRA MYCIN <=1 S F PIPER ACILL IN/TA ZOBAC EVANS <=4 S F Not Available [facility] [address] [place], [address], 07/12/2018 09:33:21 07/09/19 19 07/09/2018 urina lysis , dipst ick GLU Negati ve Not Available In-Office Order Internal Use Only DO Not Attach Compendium DO Not Attach Compendium, Do Not Delete/merge, [id number] 07/09/2018 13:42:07/09/19 19 07/09/2018 urina lysis , dipst ick PORFIRIO Negati ve Not Available In-Office Order Internal Use Only DO Not Attach Compendium DO Not Attach Compendium, Do Not Delete/merge, [id number] 07/09/2018 13:42:07/09/19 19 07/09/2018 urina lysis , dipst ick KET Negati ve Not Available In-Office Order Internal Use Only DO Not Attach Compendium DO Not Attach Compendium, Do Not Delete/merge, 07/09/2018 13:42:07/09/19 19 07/09/2018 urina lysis , dipst ick SG 1.010 Not Available In-Office Order Internal Use Only DO Not Attach Compendium DO Not Attach Compendium, Do Not Delete/merge, 07/09/2018 13:42:07/09/19 19 07/09/2018 urina lysis , dipst ick BLO Small Not Available In-Office Order Internal Use Only DO Not Attach Compendium DO Not Attach Compendium, Do Not Delete/merge, 07/09/2018 13:42:07/09/19 19 07/09/2018 urina lysis , dipst ick pH 6.0 Not Available In-Office Order Internal Use Only DO Not Attach Compendium DO Not Attach Compendium, Do Not Delete/merge, [id number] 07/09/2018 13:42:07/09/19 19 07/09/2018 urina lysis , dipst ick PRO 30 Not Available In-Office Order Internal Use Only DO Not Attach Compendium DO Not Attach Compendium, Do Not Delete/merge, 07/09/2018 13:42:07/09/19 19 07/09/2018 urina lysis , dipst ick URO 0.2 E.U. / dl Not Available In-Office Order Internal Use Only DO Not Attach Compendium DO Not Attach Compendium, Do Not Delete/merge, 07/09/2018 13:42:07/09/19 19 07/09/2018 urina lysis , dipst ick NIT positi ve Not Available In-Office Order Internal Use Only DO Not Attach Compendium DO Not Attach Compendium, Do Not Delete/merge, [id number] 07/09/2018 13:42:01 07/09/19 19 07/09/2018 urina lysis , dipst ick MARIO Large Not Available In-Office Order Internal Use Only DO Not Attach Compendium DO Not Attach Compendium, Do Not Delete/merge, [id number] 07/09/2018 13:42:01 07/09/19 19 07/09/2018 fecal occul t blood , stool Occult Blood negati ve Not Available In-Office Order Internal Use Only DO Not Attach Compendium DO Not Attach Compendium, Do Not Delete/merge, [id number] 07/09/2018 13:18:36 07/24/19 19 07/24/2018 cultu re, urine comments [facility], a [facility] of [employer] [address] [place] [address] Medic al Direc tor - Allis on Mendez carrasquillo MD SOUR E: URINE ,ROBERT N CATCH ; Not Available [facility] [address] [place] [address], [address], 07/25/2018 13:49:02 07/24/19 19 07/25/2018 cultu re, urine urine culture [facility], a [facility] of [facility] [place] [address] Medic al Direc tor - Allis on Mendez carrasquillo MD COLLE CTION TIME: 019 1:45: 00 PM -05:0 0 URINE CULTU RE No growt h F Not Available [facility] [address] [place] [address], [address], 07/25/2018 13:49:02 07/24/19 19 07/24/2018 urina lysis , dipst ick GLU Negati ve Not Available In-Office Order Internal Use Only DO Not Attach Compendium DO Not Attach Compendium, Do Not Delete/merge, [id number] 07/24/2018 13:51:53 07/24/19 19 07/24/2018 urina lysis , dipst ick PORFIRIO Negati ve Not Available In-Office Order Internal Use Only DO Not Attach Compendium DO Not Attach Compendium, Do Not Delete/merge, 07/24/2018 13:51:53 07/24/1907/24/2018 urina lysis , dipst ick KET Negati ve Not Available In-Office Order Internal Use Only DO Not Attach Compendium DO Not Attach Compendium, Do Not Delete/merge, 07/24/2018 13:51:53 07/24/1907/24/2018 urina lysis , dipst ick SG 1.025 Not Available In-Office Order Internal Use Only DO Not Attach Compendium DO Not Attach Compendium, Do Not Delete/merge, 07/24/2018 13:51:53 07/24/1907/24/2018 urina lysis , dipst ick BLO Hemoly zed : Trace Not Available In-Office Order Internal Use Only DO Not Attach Compendium DO Not Attach Compendium, Do Not Delete/merge, 07/24/2018 13:51:53 07/24/1907/24/2018 urina lysis , dipst ick pH 5.0 Not Available In-Office Order Internal Use Only DO Not Attach Compendium DO Not Attach Compendium, Do Not Delete/merge, 07/24/2018 13:51:53 07/24/1907/24/2018 urina lysis , dipst ick PRO Negati ve Not Available In-Office Order Internal Use Only DO Not Attach Compendium DO Not Attach Compendium, Do Not Delete/merge, 07/24/2018 13:51:53 07/24/1907/24/2018 urina lysis , dipst ick URO 0.2 E.U. / dl Not Available In-Office Order Internal Use Only DO Not Attach Compendium DO Not Attach Compendium, Do Not Delete/merge, 07/24/2018 13:51:53 07/24/1907/24/2018 urina lysis , dipst ick NIT negati ve Not Available In-Office Order Internal Use Only DO Not Attach Compendium DO Not Attach Compendium, Do Not Delete/merge, 07/24/2018 13:51:53 07/24/1907/24/2018 urina lysis , dipst ick MARIO Trace Not Available In-Office Order Internal Use Only DO Not Attach Compendium DO Not Attach Compendium, Do Not Delete/merge, [id number] 07/24/2018 13:51:53 05/06/20 23 05/06/2023 [facility] CYTOL OGY results Patiquincy nt Name: FLAQUITA JOE nt : 955 (Age: 67) Lab Acces ángel #: [id number] Colle ction Date: 05/06 Acces ángel Date: 05/07 Sign Out Date: 05/12 Tissu e Sourc e: 1: THINP REP CARBON ACCOUNTANT PAP TEST, CERVI ELO: Final Diagn osis: NEGAT MONIKA FOR INTRA EPITH ELIAL LESIO N OR MALIG AGUILAR . Satis facto ry for evalu ation . Endoc ervic al/tr ansfo rmati on zone prese nt. Clini elo Histo ry: Date of Last Menst rual Perio d: not avail able Menst rual Histo ry: Post- menop ausal Contr acept monika Histo ry: not avail able Ancil bessy Testi ng: HPV (ASCU S) Case image d by the ThinP rep Imagi ng Syste m with connor hurst or geraldine hill Perfo rmed at [facility] ate Refer ence Labor atory depar tment of Cytol ogy, [address] [place] Clini elo Histo ry (othe r): Z12.4 , LPS 07/09 NEG, LOW RISK Phone #: [phone], On-Ca ll Patho logis t: [id number] Not Available [facility] [address] [place], [address], 05/12/2023 13:32:43 05/16/20 15 05/15/2015 MAMMO , scree everette, digit al, bilat eral No observ ation record ed. [facility] ([facility]) [address] [place], [address], 05/16/2015 12:13:06 05/20/20 16 05/20/2016 MAMMO , scree everette, digit al, bilat eral No observ ation record ed. [email or web address] [facility] ([facility]) [address] [place], [address], 05/20/2016 12:54:35 05/26/20 17 05/26/2017 MAMMO , scree everette, digit al, bilat eral No observ ation record ed. Not Available 09/2016 13:07:16 05/27/20 18 05/27/2018 MAMMO , scree everette, digit al, bilat eral No observ ation record ed. Not Available 11/2017 08:31:26 05/31/20 19 05/31/2019 MAMMO , scree everette, digit al, bilat eral No observ ation record ed. [facility] ([facility]) [address] [place], [address], 06/01/2019 08:11:27 10/12/19 21 10/11/2020 MAMMO , scree everette, digit al, bilat eral No observ ation record ed. [email or web address] [facility] [address] [place] [address], [address], 10/12/2020 08:17:21 10/18/19 21 10/17/2020 MAMMO , diagn ostic , digit al, unila teral No observ ation record ed. [email or web address] [address] [place] [address], [address], 10/17/2020 14:08:40 10/17/19 22 10/16/2021 MAMMO , scree everette, digit al, bilat eral No observ ation record ed. [address], [address], 10/16/2021 16:00:08 04/11/2004/11/2023 MAMMO , scree everette, digit al, bilat eral No observ ation record ed. [facility] [address] [place], [address], 04/15/2023 10:28:38 04/22/2004/22/2023 MAMMO , diagn ostic , digit al, unila teral No observ ation record ed. [email or web address] [address] [place], [address], 05/30/2023 14:29:26 05/29/20 MAMMO , diagn ostic , digit al, unila teral No observ ation record ed. [facility] [address] [place], [address], 05/29/2023 14:48:50 Result Notes None recorded. Problems Name Problem SNOMED Code Status Onset Date Resolution Date Notes Provider Name and Address Organization Details Recorded Time Postmenopau jacky bleeding 50801612 Active Blossom Mejia MD [address], [place], [address] , [place] [facility], 4 12:42:32 Acute lower urinary tract infection 845671577 Active Ana de la cruz [place] [facility], 5 14:10:38 Hearing loss 59399669 Active wears hearing aids Not Available [facility] 3 03:01:06 Diverticula r disease of colon 381438467 Active Not Available [facility] 3 03:01:06 Gastroesoph ageal reflux disease 220545816 Active Not Available [facility] 3 03:01:06 Menopausal syndrome 537477384 Active Blossom Mejia MD [address], [place], [address] , [place] [facility], 5 10:47:48 Rheumatoid arthritis 80042095 Active Not Available [facility] 3 03:01:06 Uterine leiomyoma 22803138 Active Not Available [facility] 3 03:01:06 Gout 28404428 Active 2022 Blossom Mejia MD [address], [place], [address] , [place] - [facility], 3 15:14:17 Fibromyalgi a 000906737 Active 2022 Blossom Mejia MD [address], [place], [address] , [place] - [facility], 3 15:14:28 Problem Notes None recorded. Procedures Surgical History Date Name Laterality Status Provider Name and Address Organization Details Recorded Time 3 Most Recent Mammogram completed Amy Youngblood [place] - [facility], 05/06/2023 14:38:49 Myomectomy completed Ana Jones [place] - [facility], 10/06/2012 11:10:16 Imaging Results Imaging Date Name Status LastModified by Organiz ation Details LastModified Time 05/15/2015 MAMMO, screening, digital, bilateral completed [facility] ([facility]) [address] [place], [address], 05/16/2015 12:13:06 05/20/2016 MAMMO, screening, digital, bilateral completed [email or web address] [facility] ([facility]) [address] [place], [address], 05/20/2016 12:54:35 05/26/2017 MAMMO, screening, digital, bilateral completed Information not available 05/26/2017 13:07:16 05/27/2018 MAMMO, screening, digital, bilateral completed Information not available 05/28/2018 08:31:26 05/31/2019 MAMMO, screening, digital, bilateral completed [facility] ([facility]) [address] [place], [address], 06/01/2019 08:11:27 10/11/2020 MAMMO, screening, digital, bilateral completed [address] [facility] [address] [place] [address], [address], 10/12/2020 08:17:21 10/17/2020 MAMMO, diagnostic, digital, unilateral completed [address] [facility] [address] [place] [address], [address], 10/17/2020 14:08:40 10/16/2021 MAMMO, screening, digital, bilateral completed [address], [place], [address], 10/16/2021 16:00:08 04/11/2023 MAMMO, screening, digital, bilateral completed [address] [facility] [address] [place] [address], [address], 04/15/2023 10:28:38 04/22/2023 MAMMO, diagnostic, digital, unilateral completed [address] [facility] [address] [place] [address], [address], 05/30/2023 14:29:26 05/29/2023 MAMMO, diagnostic, digital, unilateral completed [address] [facility] [address] [place] [address], [address], 05/29/2023 14:48:50 Procedure Notes None recorded. Medical Equipment None Reported. Allergies No known drug allergies Medications Name Sig Start Date Stop Date Status Note LastModified by Organization Details LastModified Time quetiapine 25 mg tablet 03/24 completed Not Available Not Available Not Available celecoxib 200 mg capsule 07/09 completed Not Available Not Available Not Available neomycin-po lymyxin-hyd rocort 3.5 mg/mL-10,00 0 unit/mL-1 % ear solution INSTILL 5 DROPS BOTH EARS DAILY active Not Available Not Available No t Available prednisone 10 mg tablet 05/06 completed Not Available Not Available Not Available azithromyci n 250 mg tablet TAKE 2 TABLETS BY MOUTH TODAY, THEN TAKE 1 TABLET DAILY FOR 4 DAYS 05/06 completed Not Available Not Available Not Available ibuprofen 800 mg tablet 03/24 completed Not Available Not Available Not Available hydrocodone 5 mg-acetamin ophen 325 mg tablet TAKE 1 TABLET BY MOUTH EVERY 6 HOURS NEEDED FOR PAIN FOR UP TO 10 DAYS. 05/06 completed Not Available Not Available Not Available prazosin 1 mg capsule 03/24 completed Not Available Not Available Not Available prednisone 20 mg tablet 07/09 completed Not Available Not Available Not Available clonazepam 0.5 mg tablet active Not Available Not Available Not Available prednisone 5 mg tablet 07/09 completed Not Available Not Available Not Available promethazin e 6.25 mg-codeine 10 mg/5 mL syrup 03/24 completed Not Available Not Available Not Available ciprofloxac in 250 mg tablet TAKE 1 TABLET (250 MG TOTAL) BY MOUTH IN THE MORNING AND IN THE EVENING FOR 5 DAYS 05/06 completed Not Available Not Available Not Available omeprazole 40 mg capsule,del ayed release active Not Available Not Available Not Available pantoprazol e 20 mg tablet,izaiah yed release 03/24 completed Not Available Not Available Not Available terbinafine HCl 250 mg tablet 03/24 completed Not Available Not Available Not Available lorazepam 0.5 mg tablet 05/06 completed Not Available Not Available Not Available estradiol 1 mg tablet TAKE ONE TABLET BY MOUTH EVERY DAY 03/24 completed Not Available Not Available Not Available amitriptyli ne 10 mg tablet TAKE 1 TABLET BY MOUTH EVERY DAY AT BEDTIME FOR 180 DAYS 05/06 completed Not Available Not Available Not Available benzonatate 100 mg capsule 03/24 completed Not Available Not Available Not Available hydrocortis one 1 % topical cream 03/24 completed Not Available Not Available Not Available cephalexin 500 mg capsule 07/09 completed Not Available Not Available Not Available paroxetine 30 mg tablet 03/24 completed Not Available Not Available Not Available paroxetine 20 mg tablet 05/06 completed Not Available Not Available Not Available pantoprazol e 40 mg tablet,izaiah yed release 07/09 completed Not Available Not Available Not Available progesteron e micronized 200 mg capsule TAKE 1 CAPSULE BY MOUTH EVERY NIGHT AT BEDTIME 03/24 completed Not Available Not Available Not Available hydroxyzine HCl 25 mg tablet 05/06 completed Not Available Not Available Not Available allopurinol 300 mg tablet active Not Available Not Available Not Available ergocalcife rol (vitamin D2) 1,250 mcg (50,000 unit) capsule TAKE 1 CAPSULE (50,000 UNITS TOTAL) BY MOUTH ONCE WEEKLY active Not Available Not Available No t Available methylpredn isolone 4 mg tablets in a dose pack USE DIRECTED 05/06 completed Not Available Not Available Not Available colchicine 0.6 mg tablet TAKE 1/2 TABLET BY MOUTH EVERY DAY active Not Available Not Available No t Available fluticasone propionate 50 mcg/actuati on nasal spray,suspe nsion 03/24 completed Not Available Not Available Not Available doxycycline hyclate 100 mg tablet 07/09 completed Not Available Not Available Not Available neomycin-po lymyxin-hyd rocort 3.5 mg-10,000 unit/mL-1 % ear drops,susp 07/09 completed Not Available Not Available Not Available cyclobenzap rine 5 mg tablet TAKE 1 TABLET BY MOUTH 2 TIMES DAILY NEEDED FOR MUSCLE SPASMS FOR UP TO 10 DAYS. 05/06 completed Not Available Not Available Not Available rosuvastati n 5 mg tablet 05/06 completed Not Available Not Available Not Available nitrofurant oin monohydrate /macrocryst als 100 mg capsule Take 1 capsule every 12 hours by oral route for 7 days. 05/06 completed Not Available Not Available Not Available duloxetine 30 mg capsule,del ayed release TAKE 1 CAPSULE BY MOUTH DAILY FOR 360 DAYS. 05/06 completed Not Available Not Available Not Available zolpidem ER 12.5 mg tablet,exte nded release,mul tiphase 03/24 completed Not Available Not Available Not Available Humira Pen 40 mg/0.8 mL subcutaneou s kit 07/09 completed Not Available Not Available Not Available Enbrel SureClick 50 mg/mL (1 mL) subcutaneou s pen injector active Not Available Not Available Not Available Cimzia 400 mg/2 mL (200 mg/mL x 2) subcutaneou s syringe kit 07/09 completed Not Available Not Available Not Available Xeljanz 5 mg tablet active Not Available Not Available No t Available Vitals Date Recorded Body height Body mass index (BMI) Body weight Heart rate Systolic blood pressure Diastolic blood pressure Provider Name and Address Organization Details Last Updated DateTime 7 168.91 cm 31 kg/m2 89589.5 1 g 80 /min 119 mm[Hg] 66 mm[Hg] Amy [facility], 7 09:26:49 Date Recorded Body weight Body mass index (BMI) Body height Heart rate Systolic blood pressure Diastolic blood pressure Provider Name and Address Organization Details Last Updated DateTime 9 245666. 69 g 36.2 kg/m2 167.64 cm 91 /min 127 mm[Hg] 70 mm[Hg] Ana [facility], 9 13:09:25 Date Recorded Body height Body mass index (BMI) Body weight Heart rate Systolic blood pressure Diastolic blood pressure Provider Name and Address Organization Details Last Updated DateTime 9 167.64 cm 36.2 kg/m2 163135. 69 g 91 /min 152 mm[Hg] 79 mm[Hg] Amy [facility], 9 13:50:30 Date Recorded Body weight Body mass index (BMI) Body height Body temperature Heart rate Systolic blood pressure Diastolic blood pressure Provider Name and Address Organization Details Last Updated DateTime 3 917816. 15 g 37.5 kg/m2 167.64 cm 98.1 [degF] 85 /min 142 mm[Hg] 62 mm[Hg] Amy [facility] in [facility], 3 14:35:54 Date Recorded Body weight Heart rate Body mass index (BMI) Body height Systolic blood pressure Diastolic blood pressure Provider Name and Address Organization Details Last Updated DateTime 5 24939.6 5874 g 87 /min 32.1 kg/m2 168.91 cm 132 mm[Hg] 62 mm[Hg] Ana [facility], 08/10/201 5 09:29:58 Social History Question Answer Notes LastModified by Organizat ion Details LastModified Time Tobacco Smoking Status Never Smoker Not Available [facility] 04/25/2020 03:19:37 What Is Your Level Of Alcohol Consumption? Moderate 1 Daily Information not available 05/06/2023 How Many Years Have You Consumed Alcohol? 40 Information not available 05/06/2023 What Is Your Level Of Caffeine Consumption? Occasional [id number] Information not available 04/25/2020 In The 14 Days Before Symptom Onset, Have You Had Close Contact With A Laboratory-confi rmed COVID-19 While That Case Was Ill? No Information not available 05/06/2023 In The 14 Days Before Symptom Onset, Have You Had Close Contact With A Person Who Is Under Investigation For COVID-19 While That Person Was Ill? No Information not available 05/06/2023 Have You Been To An Area Known To Be High Risk For COVID-19? No Information not available 05/06/2023 What Type Of Diet Are You Following? REGULAR [id number] Information not available 04/25/2020 Which Illicit Or Recreational Drugs Have You Used? No [id number] Information not available 04/25/2020 Do You Reside In Or Have You Traveled To An Area Where Ebola Virus Transmission Is Active? No [id number] Information not available 04/25/2020 Education 4 Year College [email or web address] Information not available 10/06/2012 What Is Your Occupation? Retired. [id number] Information not available 04/25/2020 How Many Days In The Past Year Have You Had A Heavy Drinking Consumption (4+ Female, 5+ Male)? 10 Information not available 03/24/2017 Are There Any Guns Present In Your Home? No Information not available 05/06/2023 High Number Of Sexual Partners No Information not available 03/24/2017 To Which Gender Do You Self-identify? Female Information not available 03/24/2017 Marital Status Single Partner Informatio n not available 05/06/2023 What Was The Date Of Your Most Recent Tobacco Screening? 07/24/2018 [id number] Information not available 04/25/2020 What Is Your Relationship Status? Single Partner ... Information not available 05/06/2023 Are You Sexually Active? Yes [id number] Information not available 04/25/2020 How Much Tobacco Do You Smoke? No [id number] Information not available 04/25/2020 General Stress Level Medium Information not available 03/24/2017 Do You Feel Stressed (tense, Restless, Nervous, Or Anxious, Or Unable To Sleep At Night)? JOSH Found Something On Her Breast Information not available 05/06/2023 Do You Use Any Illicit Or Recreational Drugs? No Information not available 05/06/2023 How Many Years Have You Smoked Tobacco? 0 [id number] Information not available 04/25/2020 Have You Recently (within The Last 12 Weeks, Or During A Current ) Traveled To Or Lived In A Zika-affected Area? No Information not available 03/24/2017 How Many Days In The Past Year Have You Consumed 4 Or More Drinks? 0 Information not available 05/06/2023 Sex: Female Functional Status Question Answer Note LastModified by Organizat ion Details LastModified Time What is your exercise level? Occasional [id number] Information not available 04/25/2020 Mental Status None recorded. Family History Relationship Description Onset Age of this Age Resolved Age Notes LastModified by Organization Details LastModified Time Mother Myocardial infarction previo usly record ed as Heart Attack (ND) Not available 01/30/2015 13:04:49 Father Myocardial infarction previo usly record ed as Heart Attack (ND) Not available 01/30/2015 13:04:49 Medical History Condition Response High Blood Pressure N Autoimmune Condition Y Depression N History of Ovarian Cancer N Anxiety Disorder N Arthritis Y Infertility N Kidney or Bladder Problems Y Osteopenia N Asthma N Hepatitis N Anesthesia complications N Candidate for MyRisk panel N Lung Disease N Defects or Inherited Disease N BRCA testing in past N History of Cancer N Endometriosis N Thyroid Problems N GI Problems Y Anemia Y History of Breast Cancer N DELIO exposure N Psychiatric Illness N Diabetes N Headaches or Migraines N Heart Disease N Hypertension N Osteoporosis N Gynecological History Statement/Question Response Menses Monthly N If Post Menopausal, Age at Menopause 54 Most Recent Mammogram 04/22/2023 Most Recent Bone Density Hormone Replacement Therapy N Obstetrics History GPAL:G 0 P 0 0 0 0 Type Value Living 0 Total 0 Immunizations Vaccine Type Date Status Note Provider Nam e and Address Organization Details Recorded Time Influenza, split virus, trivalent, preservative 3 completed Ana Karen null[place] - [facility], 10/18/2013 08:20:45 Influenza, split virus, trivalent, preservative 4 completed Ana Karen null[place] [facility], 12/26/2014 08:57:35 Influenza, split virus, quadrivalent, preservative 7 completed Amy Meczywor null, [place] - [facility], 03/24/2017 09:35:37 Influenza, MDCK, quadrivalent, preservative 9 completed Amy Meczywor null, [place] - [facility], 05/06/2023 14:33:31 Influenza, MDCK, quadrivalent, preservative 8 completed Amy Meczywor null, [place] - [facility], 05/06/2023 14:33:31 Influenza, high-dose, quadrivalent, PF 3 completed Amy Meczywor null[place] - [facility], 05/06/2023 14:33:31 Influenza, high-dose, quadrivalent, PF 2 completed Amy Meczywor null, [place] [facility], 05/06/2023 14:33:31 COVID-19, mRNA, LNP-S, PF, 30 mcg/0.3 mL dose 1 completed Amy Meczywor null, [place] - [facility], 05/06/2023 14:33:31 COVID-19, mRNA, LNP-S, PF, 30 mcg/0.3 mL dose 1 completed Amy Meczywor null, [place] - [facility], 05/06/2023 14:33:31 COVID-19, mRNA, LNP-S, PF, 30 mcg/0.3 mL dose 1 completed Amy Meczywor null[place] [facility], 05/06/2023 14:33:31 COVID-19, mRNA, LNP-S, PF, 30 mcg/0.3 mL dose, maría-sucrose 2 completed Amy Meczywor null, [place] - [facility], 05/06/2023 14:33:31 COVID-19, mRNA, LNP-S, bivalent, PF, 30 mcg/0.3 mL dose 3 completed Amy Meczywor null, [place] - [facility], 05/06/2023 14:33:31 COVID-19, mRNA, LNP-S, bivalent, PF, 30 mcg/0.3 mL dose 2 completed Amy Meczywor null, [place] - [facility], 05/06/2023 14:33:31 pneumococcal polysaccharide PPV23 1 completed Amy Meczywor null, [place] - [facility], 05/06/2023 14:33:31 pneumococcal polysaccharide PPV23 0 completed Amy Meczywor null, [place] - [facility], 05/06/2023 14:33:31 Tdap 3 completed Amy Meczywor null, [place] - [facility], 05/06/2023 14:33:31 Pneumococcal conjugate PCV 13 5 completed Amy Meczywor null, [place] - [facility], 05/06/2023 14:33:31 Influenza, high-dose, trivalent, PF 0 completed Amy Meczywor null, [place] - [facility], 05/06/2023 14:33:31 Influenza, high-dose, trivalent, PF 1 completed Amy Meczywor null, [place] - [facility], 05/06/2023 14:33:31 Influenza, split virus, trivalent, preservative 2 completed Amy Meczywor null, [place] [facility], 05/06/2023 14:33:31 Influenza, split virus, trivalent, preservative 2 completed Amy Meczywor null, [place] [facility], 05/06/2023 14:33:31 Influenza, split virus, trivalent, preservative 3 completed Amy Meczywor null, [place] - [facility], 05/06/2023 14:33:31 Influenza, split virus, trivalent, preservative 5 completed Amy Meczywor null, [place] - [facility], 05/06/2023 14:33:31 Influenza, split virus, trivalent, preservative 0 completed Amy Meczywor null, [place] [facility], 05/06/2023 14:33:31 Influenza, split virus, trivalent, preservative 7 completed Amy Meczywor null, [place] [facility], 05/06/2023 14:33:31 Influenza, split virus, trivalent, preservative 8 completed Amy Meczywor null, [place] [facility], 05/06/2023 14:33:31 Influenza, split virus, trivalent, preservative 6 completed Amy Meczywor null, [place] [facility], 05/06/2023 14:33:31 Influenza, split virus, trivalent, preservative 1 completed Amy Meczywor null[place] [facility], 05/06/2023 14:33:31 Influenza, split virus, trivalent, preservative 6 completed Amy Meczywor null[place] [facility], 05/06/2023 14:33:31 Influenza, split virus, trivalent, preservative 4 completed Amy Meczywor null, [place] - [facility], 05/06/2023 14:33:31 Td (adult), 5 Lf tetanus toxoid, preservative free, adsorbed 3 completed Amy Meczywor null, [place] - [facility], 05/06/2023 14:33:31 DTaP 3 completed Amy Meczywor null, [place] - [facility], 05/06/2023 14:33:31 Past Encounters Encounter ID Performer Location Encounter Start Date Encounter Closed Date Diagnosis/Indication Diagnosis SNOMED-CT Code Diagnosis ICD10 Code Diagnosis Note [id number] MD BLOSSOM Campbell MD [address] [facility] [place] [address] 10/06/2012 10:37:44 10/06/2012 14:36:12 [id number] BLOSSOM MEJIA MD [address] [facility] [place] [address] 10/18/2013 08:02:15 10/18/2013 14:57:26 Specialized medical examination [id number] Screening for malignant neoplasm of rectum [id number] Screening mammography 04571516 Menopausal syndrome 848748222 Postmenopa usal bleeding [id number] BLOSSOM MEJIA MD [address] [facility] [place] [address] 12/26/2014 08:41:17 12/26/2014 11:10:38 Specialized medical examination [id number] Screening for malignant neoplasm of rectum [id number] Screening mammography [id number] Acute lowe r urinary tract infection [id number] Menopausal syndrome [id number] BLOSSOM MEJIA MD [address] [facility] [place] [address] 01/30/2015 09:21:58 01/30/2015 13:22:11 Acute lower urinary tract infection [id number] MD BLOSSOM Campbell MD [address] [facility] [place] [address] 03/24/2017 09:19:57 03/24/2017 11:03:42 Specialized medical examination [id number] Z01.419 Screening for malignant neoplasm of rectum 427600036 Z12.12 Screening mammography 24 402529 Z12.31 Acute lowe r urinary tract infection [id number] R30.0 [id number] MD BLOSSOM Campbell MD [address] [facility] [place] [address] 07/09/2018 12:58:34 07/09/2018 15:16:35 Specialized medical examination 77862581 Z01.419 Screening for malignant neoplasm of rectum 350005653 Z12.12 Screening mammography 24 057918 Z12.31 Dysuria 46325205 R30.0 Acute lowe r urinary tract infection 286174576 R30.0 43883 MD BLOSSOM Campbell MD [address] [facility] [place] [address] 07/24/2018 13:30:27 07/27/2018 07:54:31 Acute lower urinary tract infection [id number] R30.0 [id number] MD BLOSSOM Campbell MD [address] [facility] [place] [address] 05/06/2023 14:27:26 05/06/2023 15:34:53 Screening for malignant neoplasm of cervix 319692800 Z12.4 Screening mammography 24 135318 Z12.31 Screening for osteoporosis 393925907 N95.8 Rheumatoid arthritis 698 53889 M06.9 Gout 52192554 M10.9 Fibromyalgia 643963847 M 79.7 Health Concerns Section Related Observation LastModified by Organization Detai ls LastModified Time None Recorded Concern Status LastModified by Organization Details LastModified Time None Recorded Advance Directives Directive None Recorded Payers Encounter Date Sequence Insurance Name Policy Number Policy Solo Covered Member ID Solo Member ID Guarantor Name 01/30/2015 2 [place] [place]ION 104 Flaquita Deng [id number] Flaquita Deng 03/24/2017 2 [place] 104 Flaquita Deng [id number] Flaquita Deng 07/09/2018 2 [place] 104 Flaquita Deng [id number] Flaquita Deng 07/24/2018 2 [facility] - [place]IC OPTION 104 Flaquita Deng [id number] Flaquita Deng 05/06/2023 2 [facility] - [place]IC OPTION 104 Flaquita Deng [id number] Flaquita Deng 05/06/2023 1 [place] B[place] [facility] Flaquita Deng [id number] 20 Flaquita Deng Notes Date Note Type Note Provider Name and Address Organization Details Recorded Time 03/24/2017 text/html She is here for annual exam, she retired in November and is doing well but put on weight because she is not walking as much as she did when she was working. She became sick in mid January,, with the flu, she called her PCP who advised her to go to the ED, she went to a walk in clinic and was sent to the ED because, my kidney was only working 15% and they told me I had to go to the hospital or I was going to . She was in hospital from 02/09 to 02/14/17. She took cipro 03/11/17 fro a UTI but she notes recurrence of the sense of pressure in her mid suprapubic area. Blossom Mejia MD [address] [place] [address],[address], [place], [address], [place] - [facility], 03/24/2017 11:02:09 07/09/2018 text/html She is here for annual exam but also has dysuria and increased nocturia for a few days, she saws Dr. Rosado 3 days ago, was given prednisone and meds for gout. She had unbearable pain to walk on [place] ' pearl, was diagnosed with gout. Note from 03/2017: She is here for annual exam, she retired in November and is doing well but put on weight because she is not walking as much as she did when she was working. She became sick in mid January,, with the flu, she called her PCP who advised her to go to the ED, she went to a walk in clinic and was sent to the ED because, my kidney was only working 15% and they told me I had to go to the hospital or I was going to . She was in hospital from 02/09 to 02/14/17. She took cipro 03/11/17 fro a UTI but she notes recurrence of the sense of pressure in her mid suprapubic area. She was taken off the celebrex, HRT, and they upped the mg of hte acide reflux from 20 to 40 mg, stopped the ambien. She still takes Candi injection. She notes that she has been having severe hot flashes every half hour, my whole body feels like it is on fire. She will disucss possibly restarting her HRT with her nephorologist nad then get back to me. She appears to possibly have a recurrent UTI. RX macrobid for 7 days, check urine culture. Blossom Mejia MD [address], [place], [address], [facility], 07/09/2018 13:56:12 07/24/2018 text/html she is here for CAREY after UTI treated with macrobid, to which it was sensitive. She feels much improved, the pressure is gone. Blossom Mejia MD [address], [place], [address], [facility], 07/24/2018 15:55:05 05/06/2023 text/html She is here for annual, has not been here since 2019. She had been advised that we did not take new Medicare patients however she started she had [employer] insurance. When she arrived today she stated she actually had Medicare insurance. We advised her that we cannot treat different patients differently in regards to insurance acceptance, and so we will see her today as she is here and in need of care, she had an abnormal mammogram last week and needs a breast biopsy and is very concerned she will not have a title vehicle service attendant doctor to refer her to the surgery department. However once this exam and the breast issues are resolved then she will need to find a title vehicle service attendant doctor who accepts new Medicare. She understands and appreciates that we are managing this abnormal mammogram for her. Note from 2019: She is here for annual exam but also has dysuria and increased nocturia for a few days, she saws Dr. Rosado 3 days ago, was given prednisone and meds for gout.She had unbearable pain to walk on pearl, was diagnosed with gout. Blossom Mejia MD [address] [facility],[address], [place], [address], [place] - [facility], 05/06/2023 15:15:08 OBGyn Episode No OBEpisode recorded.
--- OUTSIDE RECORDS SUMMARY | 2024-08-04 15:16 | XMS_ITS | Clinical Summary ---
Author Organization [facility] Facility Address [address] [address] Care Team Providers Care Executive Compensation Analyst Name Role Phone Vincent Polanco MD Primary Care Provider [phone] Allergies Active Allergy Reactions Criticality Noted Date Comments Other 08/20/2011 Prazosin 04/24/2017 Other reaction(s): Flushing, feeling of warmth Medications allopurinol (ZYLOPRIM) 100 MG tablet Take 1 tablet by mouth 4 (four) times a day 03/20/2020 Active colchicine (Colcrys) 0.6 MG tablet Take 1 tablet by mouth 1 (one) time each day 03/17/2020 Active omeprazole (PriLOSEC) [address] capsule Take 1 capsule by mouth 1 (one) time each day 11/19/2019 Active Tofacitinib Citrate (Xeljanz) 5 MG tablet Take 1 tablet by mouth 2 (two) times a day 05/11/2020 Active ergocalciferol 1.25 MG (23690 UT) capsule Take 1 capsule (50,000 Units total) by mouth 1 (one) time per week 12 capsule 10/10/2023 Active Active Problems Problem Noted Date Diagnosed Date Fibromyalgia 10/29/2022 04/15/2023 Acute nontraumatic kidney injury 11/09/2020 Acute lower urinary tract infection 11/09/2020 Acute nontraumatic kidney injury 11/09/2020 Postmenopausal bleeding 11/09/2020 Enzyme level - finding 08/20/2019 Chronic gout due to renal impairment without top hus 08/18/2018 Chronic kidney disease stage 3 06/03/2018 Panic disorder with agoraphobia 08/25/2017 Alcohol abuse, in remission 03/03/2017 Generalized anxiety disorder 12/06/2013 Obese class I 12/06/2013 Seronegative rheumatoid arthritis 03/27/2010 Overview (11/09/2020): RF, CCP negative; Onset fall 2008. Sulfasalazine not helpful due to GI side effects. Enbrel started October 2010. Humira in place of Enbrel November 2011 Humira failing 06/08 - Stopped. Cimzia started 08/10 Change to tofacitinib 5 twice a day October 2017. RF, CCP negative; Onset fall 2008. Sulfasalazine not helpful due to GI side effects. Enbrel started October 2010. Humira in place of Enbrel November 2011 Humira failing 06/08 - Stopped. Cimzia started 08/10 Change to tofacitinib 5 twice a day October 2017. Uterine leiomyoma 04/18/2009 Menopausal syndrome 07/21/2008 Diverticulitis of colon 02/17/2006 Gastro-esophageal reflux disease without esophag itis 10/18/2005 Unspecified hearing loss 10/18/2005 Rheumatoid arthritis Immunizations Name Administration Dates Next Due DTaP 06/23/2012 Influenza Split High Dose Pr eservative Free IM 01/30/2023,04/25/2021,03/20/2020 Influenza TIV (IM) 05/23/2016, 5,05/26/2014,04/22,03/04/2013,02/25/2012,06/23/2011 ,04/30/2011,04/04/2010,05/02/2009,03/24,04/10/2007,04/25/2006 Influenza, MDCK, Quadrivalen t, with preservative 03/01/2019,05/01/2018,03/18/2017 Influenza, Quadrivalent, Wit h Preservative 04/23/2018 PPD Test 10/15/2010 [facility] [employer] SARS-COV-2 09/27/2021,10/08/2020,09/16/19 21 Pneumococcal Conjugate 13-Valent 09/12/2014 Pneumococcal Polysaccharide 03/20/2020, 1 Td 10/08/2022 Tdap 09/29/2012 Social History Tobacco Use Types Packs/Day Years Used Date Smoking Tobacco: Never Smokeless Tobacco: Never Tobacco Cessation:Counseling Given: No Comments Unknown Sex and Gender Information Value Date Recorded Sex Assigned at Not on file Legal Sex Female 4:49 PM EST Gender Identity Not on file Sexual Orientation Not on file Last Filed Vital Signs Vital Sign Reading Time Taken Comments Blood Pressure 132/75 04/15/2023 1:04 PM EDT Pulse 109 04/15/2023 1:04 PM EDT Temperature - - Respiratory Rate - - Oxygen Saturation 97% 04/15/2023 1:04 PM EDT Inhaled Oxygen Concentration - - Weight 102 kg (225 lb) 04/15/2023 1:04 PM EDT Height 167.6 cm (5' 6 ) 05/12/2020 12:01 PM EST Body Mass Index 36.32 05/12/2020 12:01 PM EST Plan of Treatment Health Maintenance Due Date Last Done Comments Breast Cancer Screening 1955 Colorectal Cancer Screening: Annual FOBT 12/28/2003 Colorectal Cancer Screening: Colonoscopy 12/28/2003 Colorectal Cancer Screening: Sigmoidoscopy 12/28/2003 Influenza Vaccine (#1) 2024 3, 04/25/2021, 03/20/2020, Additional history exists Pneumococcal Vaccine: 65+ Years Completed 03/20/2020, 09/12/2014, 08/28/2010 Hepatitis B Vaccine Aged Out No longe r eligible based on patient's age to complete this topic Insurance [facility] MEDICARE [facility] MEDIC[facility] Care Teams Executive Compensation Analyst Relationship Specialty Start Date End Date Vincent Polanco MD PCP - General 07/03/20
[2024-08-04 15:27] LABS: Erythrocyte Sedimentation Rate 6 MM/HR (0-20)
[2024-08-04 15:44] LABS: Alanine Aminotransferase 71 U/L (0-31); Aspartate Amino Transferase 58 U/L (5-31); C Reactive Protein 1.32 mg/dL (< or = 0.50); Cholesterol 245 mg/dL (<200); Estimated Glomerular Filt Rate 41; HDL Cholesterol 42 mg/dL (>40); LDL Cholesterol Calculated 159 mg/dL (<100); Triglycerides 220 mg/dL (<150); Uric Acid 6.6 mg/dL (2.4-5.7)
[2024-08-04 15:48] LABS: HBc Num1 0.15 S/CO (0.00-0.79); HBsAGNum1 0.26 S/CO (0.00-0.99); Hepatitis B Core Antibody Nonreactive (Nonreactive); Hepatitis B Surface Antigen Negative (Negative); ~HepC Num1 0.58 S/CO (0.00-0.79); ~Hepatitis B Surface Antibody NONREACTIVE (Nonreactive); ~Hepatitis C Antibody Nonreactive (Nonreactive)
[2024-08-07 11:08] LABS: TS Negative Control Passed; TS Panel A 0; TS Panel B 0; TS Positive Control Passed; TSpotTB Negative (Negative)
== END 2024-08-04 13:54 | disposition home or self-care (01) ==
LOC: HO.XRAY 13:53
PROVIDERS: PCP Internal Medicine; Visit Provider Internal Medicine Rheumatology
DX: M06.9 Rheumatoid arthritis, unspecified (principal); M17.0 Bilateral primary osteoarthritis of knee; M10.9 Gout, unspecified; Z79.899 Other long term (current) drug therapy
CPT/HCPCS: 36415; 73560; 80061; 82565; 84450; 84460; 84550; 85025; 85652; 86140; 86481; 86704; 86706; 86803; 87340

== ENCOUNTER → 2024-08-04 14:29 | Outpatient (BNV) | payer MEDICARE, BC, SELFPAY | PROVIDERS: PCP Internal Medicine; Visit Provider Radiology Diagnostic Radiology | DX: M17.0 Bilateral primary osteoarthritis of knee (principal) | CPT/HCPCS: 73560 ==

== ENCOUNTER 2024-08-10 13:25 | Outpatient (AMB) | payer MEDICARE, BC, SELFPAY ==
--- NOTE | 2024-08-10 13:37 | MHC.OFFVIS ---
Vital Signs 08/10/24 13:49 Height 5 ft 7 in Weight 237 lb 8 oz BMI 37.2 BP 160/90 H Blood Pressure Location Rt brachial Position Sitting Pulse 89 Pulse Source Pulse Oximeter Pulse Oximetry (%) 97 Oxygen Delivery Method Room Air Intake Visit Reasons: 3 mo follow up Intake Note: Patient presents today for rheumatoid arthritis. Base Filler Operator Required: No Allergies cat dander Allergy (Mild, Verified 08/10/24 13:49) Watery Eye environmental allergies Allergy (Mild, Verified 08/10/24 13:49) Itching ragweed pollen Allergy (Mild, Verified 08/10/24 13:49) Itchy Eyes goldenrod Allergy (Mild, Uncoded 05/11/24 14:52) Sneezing oak trees Allergy (Mild, Uncoded 05/11/24 14:52) Sneezing HPI HPI 3 mo follow up: Details: She is not taking statin. She stopped taking her statin because of muscle spasms in her legs. She reports that when she resumes the statin she is able to tolerate the spasms, which diminished over time. She has not taken Xeljanz in about a week because of labs and prescription. She is unable to afford Xeljanz until her next page checked in the middle of August. Pharmacy recommended sending 90 day supply. Review of Systems Const All systems reviewed & are unremarkable except as noted in HPI and below Physical Exam Vital Signs: Last Vital Signs Pulse 89 08/10/24 13:49 BP 160/90 H 08/10/24 13:49 Pulse Ox 97 08/10/24 13:49 Oxygen Delivery Method Room Air 08/10/24 13:49 BMI result Body Mass Index 37.2 Const Other: General: Comfortable CVS: RRR Respiratory: clear to auscultation bilaterally. Good respiratory effort Skin: No lesions seen MSK: Nontender joints. Good range of motion of upper extremities. Normal external rotation of bilateral hips. Bilateral knee flexion 90 degrees. No MTP tenderness Assessment & Plan Assessment & Plan (1) Rheumatoid arthritis: Comment: Controlled on Xeljanz 5 mg daily. She has mild transaminitis on current labs and hyperlipidemia. Transaminitis may be related to alcohol use or drug-induced (Xeljanz, allopurinol or statin) or possible underlying liver disease such as hepatic steatosis. Seronegative. Onset 2008. Sulfasalazine ineffective and caused GI side effect. Failed Enbrel 10/2010 to 11/2011, Humira 11/2011-, cimzia 05/2018-10/2017. Xeljanz 11/09/2017 to 12/2021 then restarted. Code(s): M06.9 - Rheumatoid arthritis, unspecified Category: Medical Plan: Liver panel ordered to do in 2 weeks She will hold Xeljanz at this time because she is unable to afford it. She will look into patient assistance program. We discussed importance of healthy eating and exercise She will resume statin for better management of hyperlipidemia (2) Transaminitis: Code(s): R74.01 - Elevation of levels of liver transaminase levels Category: Medical Plan: See above (3) Osteoarthritis of knees, bilateral: Comment: pain is controlled with last set of cortisone injections. Reviewed most recent x-rays, which revealed degenerative joint disease of bilateral knees. Code(s): M17.0 - Bilateral primary osteoarthritis of knee Category: Medical Qualifiers: Osteoarthritis type: primary Qualified Code(s): M17.0 - Bilateral primary osteoarthritis of knee Plan: Monitor clinically (4) Other fci (current) drug therapy: Code(s): Z79.899 - Other extermination supervisor (current) drug therapy Category: Medical Plan: See above Coding Level of Care Code Est Pt Level 4 (37844) Complex EM visit Add On G2211 Diagnoses Rheumatoid arthritis M06.9 Transaminitis R74.01 Primary osteoarthritis of both knees M17.0 Osteoarthritis type: primary Other extermination supervisor (current) drug therapy Z79.899
[2024-08-10 13:49] VITALS: BP 160/90; PULSE 89; O2SAT 97; BMI 37.2
--- OUTSIDE RECORDS SUMMARY | 2024-08-10 14:22 | XMS_ITS | Clinical Summary ---
Author Organization [facility] it Address [address] [place] [address] Care Team Providers Care Geographic Information Systems Engineer Name Role Phone Vincent Polanco MD Primary Care Provider [phone] Encounters Date Type Department Care Team Description 05/14/2024 Telephone Health Care Marketing Manager - [address] [place] [address] Amy Ceballos [place] Medicare Annual Wellness Visit Subsequent (AWV DUE 2023) from Last 3 Months Surgical History Surgery Date Site/Laterality Comments OTHER SURGICAL HISTORY 10/26 PROCEDURE: MA DILATION & CURETTAGE DX&/THER NONOBSTETRIC; COMMENT: 2.5 cm benign polyp removed SHOULDER SURGERY 04/27 PROCEDURE: MA UNLISTED PROCEDURE SHOULDER; COMMENT: bone spur and dog bite repair ESOPHAGOGASTRODUODENOSCOPY 10/09/07 PROCEDURE: MA EGD TRANSORAL BIOPSY SINGLE/MULTIPLE; COMMENT: Small hiatal hernia, gastric polyp removed:normal mucosa, gastric bx:reactive gastropathy COLONOSCOPY 10/09/07 PROCEDURE: HISTORICAL COLONOSCOPY; COMMENT: Up to cecum, good preparation, normal ROTATOR CUFF REPAIR ?2002 PROCEDURE: HISTORICAL ROTATOR CUFF REPAIR; COMMENT: right - ? just decompressive surgey OTHER SURGICAL HISTORY 12/2019 Right PROCEDURE: MA UNLISTED PROCEDURE MIDDLE EAR; COMMENT: myringotomy and [...] Additional history exists Breast Cancer Screening 04/11/2025 04/11/20 23, 10/16/2021, 10/11/2020, Additional history exists RSV Immunization [...] patient's age to complete this topic Meningococcal B Vacine Aged Out No lo nger eligible based on patient's age to complete this topic RSV Immunization Patients Under 20 months Aged Out No longer eligible based on patient's age to complete this topic Varicella Vaccines Aged Out No longer eligible based on patient's age to complete this topic Procedures Procedure Name Priority Date/Time Associated Diagnosis Comments EXTERNAL CLINICAL LAB 08/09/2024 EXTERNAL CLINICAL LAB 08/05/2024 EXTERNAL XRAY REPORT 08/05/2024 EXTERNAL XRAY REPORT 08/05/2024 EXTERNAL XRAY REPORT 08/05/2024 EXTERNAL XRAY REPORT 08/05/2024 EZRA SCREENING DIGITAL Routine 04/11/2023 5:06 PM EDT Encounter for screening mammogram for malignant neoplasm of breast from Last 3 Months or Most Recently Relevant to Health Maintenance Results * External clinical lab (08/09/2024) Only the most recent of2 resultswithin the time period is included. Provider [facility] BLOOD ORDERABLES Fin al Result * External Xray Report (08/05/2024) Only the most recent of4 resultswithin the time period is included. Anatomical Region Laterality Modality Radiographic Marii ging us Provider [facility] XR PROCEDURES Final Result * EZRA SCREENING DIGITAL (04/11/2023 5:06 PM EDT) Anatomical Region Laterality Modality Mammography 04/11/2023 2:09 PM EDT Narrative 04/11/2023 5:06 PM EDT [facility] Diagnostic Imaging Department [address] [place], [place] [id number] Patient: ??FLAQUITA MA ?/Age/Sex: 1955 - 67 - F Unit#: ??[id number] ? Location/Status: ??SPDIMAM/REG CLI ? Mnemonic/Ordering Site: ??DIGSC/SPMAM Ordering Physician: ??BLOSSOM ABRAMS MD Ezra Screening Digital - 04/11/23 - 5020 Report Status:Signed EXAM: Ezra Screening Digital EXAM DATE AND TIME: 04/11/2023 2:37 PM HISTORY: ??Screening. COMPARISON: ??10/16/21, 10/17/20, 10/11/20, 05/31/19 TECHNIQUE: Bilateral digital breast tomosynthesis was performed in the CC and MLO projections. Computer aided detection with iCAD Gradwell 3D 3.1 was employed. TISSUE DENSITY: b. [...] Signed by: ??REID GEORGE MD Dic Date/Time: ??04/11/231703 Sign date/Time: ??04/11/231705 Procedure Note Reid George MD - 07/29/2023 [facility] Diagnostic Imaging Department [address] [place] [address] Patient: TRALIYAHFLAQUITA FORRESTO.B./Age/Sex: 1955 - 67 - F Unit#: [id number] Location/Status: [facility] CLI Mnemonic/Ordering Site: [facility] Ordering Physician: BLOSSOM ABRAMS MD Ezra Screening Digital - 04/11/23 - 1437 Report Status:Signed EXAM: Ezra Screening Digital EXAM DATE AND TIME: 04/11/2023 2:37 PM HISTORY: Screening. COMPARISON: 10/16/21, 10/17/20, 10/11/20, 05/31/19 TECHNIQUE: Bilateral digital breast tomosynthesis was performed in the CCand MLO projections. Computer aided detection with Impactia 3D 3.1was employed. TISSUE DENSITY: b. There [...] MD Dic Date/Time: 04/11/231703 Sign date/Time: 04/11/231705 Blossom Arbams MD IMG BI PROCEDURES Final Resu lt from Last 3 Months or Most Recently Relevant to Health Maintenance Care Teams Geographic Information Systems Engineer Relationship Specialty Start Date End Date Vincent Polanco MD PCP - General 07/12/02
--- OUTSIDE RECORDS SUMMARY | 2024-08-10 14:22 | XMS_ITS | Data Portability ---
Author Organization [place] - [facility], Allergy Address [address] [address] Care Team Providers Care Roll Grinder Operator Name Role Phone PETAR BARRIOS Primary [...] mcg/actua tion nasal spray,[employer] pension 2023 024 [facility]/Pharmacy #[id number], [address] [place], [address], 02/13/2024 13:28:30 cetirizin e 10 mg tablet 2023 024 [facility]/Pharmacy #[id number], [address] [place], [address], 02/13/2024 13:28:31 Patient TargetsNo targets recorded. Patient [...] Chronic serous otitis media of right ear 300091460 Active 2022 Chronic serous otitis media, right ear; Note: Date Diagnosed : 3 12:33 PM (H65.21) Not Available [facility] 4 03:19:55 Sensorine ural hearing loss in left ear 89291574591 109 Active 2022 Sensorine ural hearing loss, unilatera l, left ear, with restricte d hearing on the contralat eral side; Note: Date Diagnosed : 3 11:17 AM (H90.A22) Not Available [facility] 4 03:19:54 Disorder of nasal sinus 2758205 Active 2022 Unspecifi ed disorder of nose and nasal sinuses; Note: Date Diagnosed : 3 1:17 AM (J34.9) Not Available [facility] 4 03:19:54 Disorder of the nose 61582044 Active 2022 Unspecifi ed disorder of nose and nasal sinuses; Note: Date Diagnosed : 3 1:17 AM (J34.9) Not Available [facility] 4 03:19:54 Sensorine ural hearing loss of bilateral ears 119500578 Active 2022 Sensorine ural hearing loss, bilateral ; Note: Date Diagnosed : 3 10:51 AM (H90.3) Not Available [facility] 4 03:19:54 Disorder of right Eustachia n tube 68312718952 29882 Active 2022 Other specified disorders of Eustachia n tube, right ear; Note: Date Diagnosed : 3 10:51 AM (H69.81) Not Available [facility] 4 03:19:55 Mixed conductiv e and sensorine ural hearing loss of right ear 75916387513 105 Active 2022 Mixed conductiv e and sensorine ural hearing loss, unilatera l, right ear with restricte d hearing on the contralat eral side; Note: Date Diagnosed : 3 10:51 AM (H90.A31) Not Available [facility] 4 03:19:55 Allergic rhinitis 67354588 Active 2023 DOUG BARAJAS MD [address] [place] [address], [facility] [place], [address] , [facility] - [facility] 4 13:27:40 Problem Notes None recorded. Procedures Surgical History None recorded. Imaging Results Imaging Date Name Status LastModified by [facility] Details LastModified Time 09/09/2022 imaging/diagno stic result completed [email or web address] Information not available 02/11/2024 17:56:42 06/02/2023 imaging/diagno stic result completed [email or web address] Information not available 02/11/2024 17:56:53 06/02/2023 audiogram completed [email or web address] Information not available 02/11/2024 17:57:04 Procedure Notes [...] capsule,d elayed release active Medicati on ID: [id number] B rand Name: omeprazo le Send Method: E-Prescr ibed Sub s Allowed: subs OK Medic ationGen ericName : omeprazo le Not Available Not Available Not Available ofloxacin 0.3 % ear drops INSTILL 5 DROP IN AFFECTED EARS(S) TWICE A DAY DIRECTED active Not Available Not Available No t Available allopurin ol 300 mg tablet active Medicati on ID: [id number] B rand Name: allopuri nol Send Method: E-Prescr ibed Sub s Allowed: subs OK Medic ationGen ericName : allopuri nol Not Available Not Available Not Available ergocalci ferol (vitamin D2) 1,250 mcg (50,000 unit) capsule TAKE 1 CAPSULE (50,000 UNITS TOTAL) BY MOUTH ONCE WEEKLY active Not Available Not Available No t Available colchicin e 0.6 mg tablet active Medicati on ID: [id number] B rand Name: colchici ne Send Method: E-Prescr ibed Sub s Allowed: subs OK Medic ationGen ericName : colchici ne Not Available Not Available Not Available fluticaso ne propionat e 50 mcg/actua tion nasal spray,[employer] pension [place] 2 sprays every day by intranas al [...] Updated DateTime 02/13/2024 170.18 cm 36 kg/m2 633830.25 g Heather Villalta [place] - [facility] 02/13/2024 13:12:27 Social History None recorded. [...] SNOMED-CT Code Diagnosis ICD10 Code Diagnosis Note [id number] DOUG BARAJAS MD [facility] [address] [place] [address] 02/13/2024 13:05:43 02/13/2024 13:37:28 Allergic rhinitis [id number] J30.9 68-year-ol d female with a history [...] tube. Disorder o f right Eustachian tube [id number] 882382 H69.81 Health Concerns Section Related Observation LastModified by Organization Detai ls LastModified Time None Recorded Concern Status LastModified by Organization Details LastModified Time None Recorded Advance Directives Directive None Recorded Payers Encounter Date Sequence Insurance Name Policy Number Policy Solo Covered Member ID Solo Member ID Guarantor Name 02/13/2024 1 [place] [employer] Flaquita Cali Ish [id number] Flaquita Ish 02/13/2024 2 [place] [id number] Flaquita Cali Ish [id number] Flaquita Ish Notes Date Note Type Note [...] NPL showed no mass. DOUG BARAJAS MD [address] [place] [address], [place], [address], [place] - [facility] 02/13/2024 17:41:42 OBGyn Episode No OBEpisode recorded.
--- OUTSIDE RECORDS SUMMARY | 2024-08-10 14:22 | XMS_ITS | Data Portability ---
Author Organization [place] - [facility] in [facility],, BLOSSOM MEJIA MD Address [address] [address] Care Team Providers Care Automation Test Engineer Name Role Phone PETAR BARRIOS Assessment No assessment recorded. Plan of Treatment Reminders Order Date Submit Date Provider Last Modified By Organization Details Last Modified Time Details Appointments None recorded. Lab pap test, thinprep, cervical 2022 023 [email or web address] [facility], [address] [place], [address], 3 07:26:54 urinalysi s, dipstick 2018 019 [email or web address] 1 In-Office Order, Internal Use Only DO Not Attach Compendium DO Not Attach Compendium, Do Not Delete/merge, [id number] 9 15:14:54 culture, urine 2018 019 [facility], [address] [place], [address], 9 13:49:02 urinalysi s, dipstick 2018 019 [email or web address] In-Office Order, Internal Use Only DO Not Attach Compendium DO Not Attach Compendium, Do Not Delete/merge, [id number] 9 15:15:53 culture, urine 2018 019 [facility], [address] [place] [address], [address], 9 14:20:54 pap test, thinprep, cervical [address] [facility], Cytopathology Service, [address] [place], [address], 9 16:48:00 fecal occult blood, stool 2018 019 ARISTIDES In-Office Order, Internal Use Only DO Not Attach Compendium DO Not Attach Compendium, Do Not Delete/merge, [id number] 9 13:56:30 urinalysi s, dipstick 2016 017 [email or web address] 1 In-Office Order, Internal Use Only DO Not Attach Compendium DO Not Attach Compendium, Do Not Delete/merge, [id number] 7 09:58:32 culture, urine 2016 017 ARISTIDES In-Office Order, Internal Use Only DO Not Attach Compendium DO Not Attach Compendium, Do Not Delete/merge, [id number] 7 04:21:04 pap test, thinprep, cervical [address] [facility], Cytopathology Service, [address] [place], [address], 7 13:30:28 fecal occult blood, stool 2016 017 ARISTIDES In-Office Order, Internal Use Only DO Not Attach Compendium DO Not Attach Compendium, Do Not Delete/merge, [id number] 7 10:42:47 urinalysi s, dipstick 2014 015 [email or web address] 1 In-Office Order, Internal Use Only DO Not Attach Compendium DO Not Attach Compendium, Do Not Delete/merge, [id number] 5 13:05:27 culture, urine 2014 015 HUMBOLDT [facility], [address] [place], [address], 5 04:35:29 Referral None recorded. Procedures None recorded. Surgeries None recorded. Imaging MAMMO, screening , digital, bilateral - Breast Aspiratio n and/or Biopsy if needed 2022 023 [email or web address] [facility], [address], [place], [address], 4 07:46:26 bone density 2022 023 inaor [facility]), [address] [place], [address], 4 07:46:26 MAMMO, screening , digital, bilateral 2018 019 [facility] ([facility]), [address], [address], 9 16:22:09 MAMMO, screening , digital, bilateral 2016 017 [facility]), [address] [place], [address], 7 12:57:35 Medication Orders nitrofura ntoin monohydra te/macroc rystals 100 mg capsule 2018 019 [email or web address] Not available 3 14:35:23 nitrofura ntoin monohydra te/macroc rystals 100 mg capsule 2016 017 [email or web address] Not available 3 14:35:23 Patient TargetsNo targets recorded. Patient Instructions Encounter Date Encounter Id Patient Instructions Last Modified By Organization Details Last Modified Time 01/30/2015 [id number] urinary tract infection in women information [email or web address] Not available 01/30/2015 13:50:14 She is here for her CAREY after recent UTI.? ? ? Her urine dip still has some WBC, check C and S.? ? ? Ways to prevent recurrences discussed. Face to face discussion 15 minutes smayo Not available 01/30/2015 13:05:27 03/24/2017 [id number] urinary tract infection in women information [email or web address] [...] questions answered. Not available 03/24/2017 10:38:35 07/09/2018 [id number] urinary tract infection in women information Not [...] questions answered. Not available 07/09/2018 13:55:21 07/24/2018 [id number] urinary tract infection in women information Not available 07/24/2018 15:20:55 she is here for CAREY after UTI treated with macrobid, to which it was sensitive. She feels much improved, the pressure is gone. We discused ways to prevent recurrent UTI. Check urine culture, dip suggests the infection is resolved. All questions answered. Face to face discussion 15 minutes Not available 07/24/2018 15:54:40 05/06/2023 [id number] gout: care instructions Not available 05/06/2023 15:14:36 Rheumatoid Arthritis (RA): Care Instructions Not available 05/06/2023 15:14:36 atrophic vaginit is: care instructions Not available 05/06/2023 15:10:55 learning about healthy weight Not available 05/06/2023 15:10:55 She is here for annual, has not been here since 2019. She had been advised that we did not take new Medicare patients however she started she had [employer] insurance. When she arrived today she stated [...] very concerned she will not have a emergency physician doctor to refer her to the surgery department. However once this exam and the breast issues are resolved then she will need to find a emergency physician doctor who accepts new Medicare. She understands [...] that she would prefer to go to [facility] for surgery if her breast biopsy returns [...] DO Not Attach Compendium, Do Not Delete/merge, [id number] 03/24/2017 09:53:59 03/24/20 17 03/24/2017 urina lysis , dipst ick PORFIRIO Negati ve Not Available In-Office Order Internal Use Only DO Not Attach Compendium DO Not Attach Compendium, Do Not Delete/merge, [id number] 03/24/2017 09:53:59 03/24/2003/24/2017 urina lysis , dipst ick KET Negati ve Not Available In-Office Order Internal Use Only DO Not Attach Compendium DO Not Attach Compendium, Do Not Delete/merge, [id number] 03/24/2017 09:53:59 03/24/20 17 03/24/2017 urina lysis , dipst ick SG 1.020 Not Available In-Office Order Internal Use Only DO Not Attach Compendium DO Not Attach Compendium, Do Not Delete/merge, [id number] 03/24/2017 09:53:59 03/24/2008 0403/24/2017 urina lysis , dipst ick BLO Hemoly zed : Trace Not Available In-Office Order Internal Use Only DO Not Attach Compendium DO Not Attach Compendium, Do Not Delete/merge, [id number] 03/24/2017 09:53:59 03/24/20 17 03/24/2017 urina lysis , dipst ick pH 5.0 Not Available In-Office Order Internal Use Only DO Not Attach Compendium DO Not Attach Compendium, Do Not Delete/merge, [id number] 03/24/2017 09:53:59 03/24/20 17 03/24/2017 urina lysis , dipst ick PRO Negati ve Not Available In-Office Order Internal Use Only DO Not Attach Compendium DO Not Attach Compendium, Do Not Delete/merge, [id number] 03/24/2017 09:53:59 03/24/20 17 03/24/2017 urina lysis , dipst ick URO 0.2 E.U. / dl Not Available In-Office Order Internal Use Only DO Not Attach Compendium DO Not Attach Compendium, Do Not Delete/merge, [id number] 03/24/2017 09:53:59 03/24/20 17 03/24/2017 urina lysis , dipst ick NIT negati ve Not Available In-Office Order Internal Use Only DO Not Attach Compendium DO Not Attach Compendium, Do Not Delete/merge, [id number] 03/24/2017 09:53:59 03/24/20 17 03/24/2017 urina lysis , dipst ick MARIO Small Not Available In-Office Order Internal Use Only DO Not Attach Compendium DO Not Attach Compendium, Do Not Delete/merge, [id number] 03/24/2017 09:53:59 03/24/20 17 03/24/2017 fecal occul t blood , stool Occult Blood negati ve Not Available In-Office Order Internal Use Only DO Not Attach Compendium DO Not Attach Compendium, Do Not Delete/merge, [id number] 03/24/2017 09:43:46 01/31/20 15 01/30/2015 urina lysis [...] DO Not Attach Compendium, Do Not Delete/merge, [id number] 01/30/2015 09:43:02 01/31/20 15 01/30/2015 urina lysis , dipst ick MARIO Small Not Available In-Office Order Internal Use Only DO Not Attach Compendium DO Not Attach Compendium, Do Not Delete/merge, [id number] 01/30/2015 09:43:02 01/31/20 15 01/30/2015 cultu re, urine comments [facility] [address] [place] [place] [address] [phone] SOURC E: URINE ,ROBERT N CATCH ; Not Available [facility] [address] [place], [address], 02/03/2015 04:25:24 01/31/20 15 02/02/2015 cultu re, urine [facility] [address] [place] [address] URINE CULTU RE ADDIT IONAL COLON Y TYPE( S) PRESE NT IN INSIG NIFIC ANT AMOUN TS. F URINE CULTU RE ENTER OCOCC US FAECA LIS ( ENTFA E ) F URINE CULTU RE COLON Y COUNT F URINE CULTU RE 50,00 0-100 ,000 F Not Available [facility] [address] [place], [address], 02/03/2015 04:25:24 01/31/20 15 01/30/2015 antib iotic sensi tivit y, isola te comments PAREN T ORGAN ISM: ENTER OCOCC US FAECA LIS ( ENTFA E ) [facility] [address] [facility] [place] [place] [address] [phone] SOURC E: URINE ,ROBERT N CATCH ; Not Available [facility] [address] [place], [address], 02/03/2015 04:24:22 01/31/20 15 02/02/2015 antib iotic sensi tivit y, isola te gram positive susceptibili ty [facility] [address] [place] [address] AMPIC ILLIN <=2 S F CIPRO FLOXA LIONEL 1 S F LEVOF LOXAC IN 1 S F LINEZ OLID 2 S F NITRO FURAN TOIN <=16 S F PENIC ILLIN 2 S F TETRA CYCLI NE >=16 R F TIGEC YCLIN E <=0.1 2 S F VANCO MYCIN 2 S F Not Available [facility] [address] [place], [address], 02/03/2015 04:24:22 03/24/20 17 03/24/2017 pap, LB [id number] ThinP rep Pap, Image d: NEGAT MONIKA [...] neg, z12.4 , z01.4 19 Not Available [facility], Cytopathology Service [address] [place], [address], 03/25/2017 13:30:28 03/24/20 17 03/24/2017 cultu re, urine comments [facility] [address] [facility] [place] [address] [phone] SOURC E: URINE ,ROBERT N CATCH ; Not Available [facility] [address] [place], [address], 03/26/2017 04:21:04 03/24/20 17 03/25/2017 cultu re, urine urine culture [facility] [address] [place] [address] [phone] COLLE CTION TIME: 2016 10:30 :00 AM -04:0 0 URINE CULTU RE No growt h F Not Available [facility] [address] [place], [address], 03/26/2017 04:21:04 07/09/19 19 07/09/2018 cultu re, urine comments [facility], [facility] [address] [place] [address] Medic al Direc tor - Allis on Mendez carrasquillo MD [facility] E: URINE ,ROBERT N CATCH ; Not Available [facility] [address] [place], [address], 07/12/2018 09:33:17 07/09/19 19 07/12/2018 cultu re, urine urine culture [facility], [facility] [address] [facility] [place] [address] Medic al Dire tor - Allis on Mendez carrasquillo MD COLLE CTION TIME: 2018 1:00: 00 PM -05:0 0 URINE CULTU RE ESCHE IMER A COLI ( ESCCO L ) F URINE CULTU RE COLON Y COUNT F URINE CULTU RE >100, 000 F Not Available [facility] [address] [place], [address], 07/12/2018 09:33:17 07/09/19 19 07/09/2018 pap, LB [id number] ThinP rep Pap, Image d: NEGAT MONIKA [...] . LPS NEG [Z12. 4] Not Available [facility] Cytopathology Service [address] [place], [address], 07/10/2018 16:48:00 07/09/19 19 07/09/2018 antib iotic sensi tivit y, isola te comments PAREN T ORGAN ISM: ESCHE IMER A COLI ( ESCCO L ) [facility] [address] [place] [address] Medic al Direc tor - Allis on Wasse foreign MD SOURC E: URINE ,ROBERT N CATCH ; Not Available [facility] [address] [place], [address], 07/12/2018 09:33:21 07/09/19 19 07/12/2018 antib iotic sensi tivit y, isola te gram negative susceptibili ty [facility], [facility] [address] [facility] [place] [address] Medic al Direc tor - Allis on [...] S F Not Available [facility] [address] [place], [address], 07/12/2018 09:33:21 07/09/19 19 07/09/2018 urina lysis , dipst ick GLU Negati ve Not Available In-Office Order Internal Use Only DO Not Attach Compendium DO Not Attach Compendium, Do Not Delete/merge, [id number] 07/09/2018 13:42:07/09/19 19 07/09/2018 urina lysis , dipst ick PORFIRIO Negati ve Not Available In-Office Order Internal Use Only DO Not Attach Compendium DO Not Attach Compendium, Do Not Delete/merge, [id number] 07/09/2018 13:42:07/09/19 19 07/09/2018 urina lysis , [...] DO Not Attach Compendium, Do Not Delete/merge, [id number] 07/09/2018 13:42:07/09/19 19 07/09/2018 urina lysis , [...] DO Not Attach Compendium, Do Not Delete/merge, [id number] 07/09/2018 13:42:01 07/09/19 19 07/09/2018 urina lysis , dipst ick MARIO Large Not Available In-Office Order Internal Use Only DO Not Attach Compendium DO Not Attach Compendium, Do Not Delete/merge, [id number] 07/09/2018 13:42:01 07/09/19 19 07/09/2018 fecal occul t blood , stool Occult Blood negati ve Not Available In-Office Order Internal Use Only DO Not Attach Compendium DO Not Attach Compendium, Do Not Delete/merge, [id number] 07/09/2018 13:18:36 07/24/19 19 07/24/2018 cultu re, urine comments [facility], a [facility] [employer] [address] [place] [address] Medic al Direc tor - Allis on Mendez carrasquillo MD SOUR E: URINE ,ROBERT N CATCH ; Not Available [facility] [address] [place] [address], [address], 07/25/2018 13:49:02 07/24/19 19 07/25/2018 cultu re, urine urine culture [facility], a [facility] of [employer] [place] [address] Medic al Direc tor - Allis on Mendez carrasquillo MD COLLE CTION TIME: 019 1:45: 00 PM -05:0 0 URINE CULTU RE No growt h F Not Available [facility] [address] [place] [address], [address], 07/25/2018 13:49:02 07/24/19 19 07/24/2018 urina lysis , dipst ick GLU Negati ve Not Available In-Office Order Internal Use Only DO Not Attach Compendium DO Not Attach Compendium, Do Not Delete/merge, [id number] 07/24/2018 13:51:53 07/24/19 19 07/24/2018 urina lysis [...] DO Not Attach Compendium, Do Not Delete/merge, [id number] 07/24/2018 13:51:53 05/06/20 23 05/06/2023 [facility] CYTOL OGY results Patiquincy nt Name: FLAQUITA JOE nt : 955 (Age: 67) Lab Acces ángel #: [id number] Colle ction Date: 05/06 Acces ángel Date: 05/07 Sign Out Date: 05/12 Tissu e Sourc e: 1: THINP REP REMOTE RUBY ON RAILS DEVELOPER PAP TEST, CERVI ELO: Final Diagn osis: [...] [place] Perfo rmed at [facility] ate Refer ence [facility] at[facility] depar tment of Cytol ogy, [address] [place] Clini elo Histo ry (othe r): Z12.4 , LPS 07/09 NEG, LOW RISK Phone #: [phone], On-Ca ll Patho logis t: [id number] Not Available [facility] [address] [place], [address], 05/12/2023 13:32:43 05/16/20 15 05/15/2015 MAMMO , scree everette, digit al, bilat eral No observ ation record ed. [facility]) [address] [place], [address], 05/16/2015 12:13:06 05/20/20 16 05/20/2016 MAMMO , scree everette, digit al, bilat eral No observ ation record ed. [email or web address] [facility] ([place] [facility]) [address] [place], [address], 05/20/2016 12:54:35 05/26/20 17 05/26/2017 MAMMO , scree everette, digit al, bilat eral No observ ation record ed. Not Available 09/2016 13:07:16 05/27/20 18 05/27/2018 MAMMO , scree everette, digit al, bilat eral No observ ation record ed. Not Available 11/2017 08:31:26 05/31/20 19 05/31/2019 MAMMO , scree everette, digit al, bilat eral No observ ation record ed. [facility] ([place] [facility]) [address] [place], [address], 06/01/2019 08:11:27 10/12/19 21 10/11/2020 MAMMO , scree everette, digit al, bilat eral No observ ation record ed. [email or web address] [facility] Imaging Dept [address] [place] [address], [address], 10/12/2020 08:17:21 10/18/19 21 10/17/2020 MAMMO , diagn ostic , digit al, unila teral No observ ation record ed. [email or web address] [address] [place] [address], [address], 10/17/2020 14:08:40 10/17/19 22 10/16/2021 MAMMO , scree everette, digit al, bilat eral No observ ation record ed. [address], [address], 10/16/2021 16:00:08 04/11/2004/11/2023 MAMMO , scree everette, digit al, bilat eral No observ ation record ed. [email or web address] [address] [place], [address], 04/15/2023 10:28:38 04/22/2004/22/2023 MAMMO , diagn ostic , digit al, unila teral No observ ation record ed. [email or web address] [address] [place], [address], 05/30/2023 14:29:26 05/29/20 MAMMO , diagn ostic , digit al, unila teral No observ ation record ed. [facility] [address] [place], [address], 05/29/2023 14:48:50 Result Notes None recorded. Problems Name Problem SNOMED Code Status Onset Date Resolution Date Notes Provider Name and Address Organization Details Recorded Time Postmenopau jacky bleeding 13730204 Active Blossom Mejia MD [address], [place], [address] , [place] - [facility], 4 12:42:32 Acute lower urinary tract infection 214243749 Active Ana de la cruz [place] - [facility], 5 14:10:38 Hearing loss 54766562 Active wears hearing aids Not Available [facility] 3 03:01:06 Diverticula r disease of colon 753823193 Active Not Available [facility] 3 03:01:06 Gastroesoph ageal reflux disease 034718645 Active Not Available [facility] 3 03:01:06 Menopausal syndrome 501791707 Active Blossom Mejia MD [address], [place], [address] , [place] - [facility], 5 10:47:48 Rheumatoid arthritis 50075852 Active Not Available [facility] 3 03:01:06 Uterine leiomyoma 31479665 Active Not Available [facility] 3 03:01:06 Gout 76040369 Active 2022 Blossom Mejia MD [address], [place], [address] , [place] - [facility], 3 15:14:17 Fibromyalgi a 147205768 Active 2022 Blossom Mejia MD [address], [place], [address] , [place] - [facility], 3 15:14:28 Problem Notes None recorded. Procedures Surgical History Date Name Laterality Status Provider Name and Address Organization Details Recorded Time 3 Most Recent Mammogram completed Amy Youngblood [place] - [facility], 05/06/2023 14:38:49 Myomectomy completed Ana Jones [place] - [facility], 10/06/2012 11:10:16 Imaging Results Imaging Date Name Status LastModified by Organiz ation Details LastModified Time 05/15/2015 MAMMO, screening, digital, bilateral completed [facility] [address] [place], [address], 05/16/2015 12:13:06 05/20/2016 MAMMO, screening, digital, bilateral completed [email or web address] [facility] ([place] [facility]) [address] [place], [address], 05/20/2016 12:54:35 05/26/2017 MAMMO, screening, digital, bilateral completed Information not available 05/26/2017 13:07:16 05/27/2018 MAMMO, screening, digital, bilateral completed Information not available 05/28/2018 08:31:26 05/31/2019 MAMMO, screening, digital, bilateral completed [facility] ([place] [facility]) [address] [place], [address], 06/01/2019 08:11:27 10/11/2020 MAMMO, screening, digital, bilateral completed [address] [facility] [address] [place] [address], [address], 10/12/2020 08:17:21 10/17/2020 MAMMO, diagnostic, digital, unilateral completed [address] [facility] [address] [place] [address], [address], 10/17/2020 14:08:40 10/16/2021 MAMMO, screening, digital, bilateral completed [address], [place], [address], 10/16/2021 16:00:08 04/11/2023 MAMMO, screening, digital, bilateral completed [address] [facility] [address] [place] [address], [address], 04/15/2023 10:28:38 04/22/2023 MAMMO, diagnostic, digital, unilateral completed [address] [facility] [address] [place] [address], [address], 05/30/2023 14:29:26 05/29/2023 MAMMO, diagnostic, digital, unilateral completed [address] [facility] [address] [place] [address], [address], 05/29/2023 14:48:50 Procedure Notes None recorded. Medical [...] Updated DateTime 7 168.91 cm 31 kg/m2 80604.5 1 g 80 /min 119 mm[Hg] 66 mm[Hg] Amy Watkins in [facility], 7 09:26:49 Date Recorded Body weight Body mass index (BMI) Body height Heart rate Systolic blood pressure Diastolic blood pressure Provider Name and Address Organization Details Last Updated DateTime 9 030749. 69 g 36.2 kg/m2 167.64 cm 91 /min 127 mm[Hg] 70 mm[Hg] Ana Watkins in [facility], 9 13:09:25 Date Recorded Body height Body mass index (BMI) Body weight Heart rate Systolic blood pressure Diastolic blood pressure Provider Name and Address Organization Details Last Updated DateTime 9 167.64 cm 36.2 kg/m2 427034. 69 g 91 /min 152 mm[Hg] 79 mm[Hg] Amy Watkins in [facility], 9 13:50:30 Date Recorded Body weight Body mass index (BMI) Body height Body temperature Heart rate Systolic blood pressure Diastolic blood pressure Provider Name and Address Organization Details Last Updated DateTime 3 339871. 15 g 37.5 kg/m2 167.64 cm 98.1 [degF] 85 /min 142 mm[Hg] 62 mm[Hg] Amy Watkins in [facility], 3 14:35:54 Date Recorded Body weight Heart rate Body mass index (BMI) Body height Systolic blood pressure Diastolic blood pressure Provider Name and Address Organization Details Last Updated DateTime 5 22076.6 5874 g 87 /min 32.1 kg/m2 168.91 cm 132 mm[Hg] 62 mm[Hg] Ana Watkins in [facility], 08/10/201 5 09:29:58 Social History Question Answer Notes LastModified by Organizat ion Details LastModified Time Tobacco Smoking Status Never Smoker Not Available [facility] 04/25/2020 03:19:37 What Is Your Level Of Alcohol Consumption? Moderate 1 Daily Information not available 05/06/2023 How Many Years Have You Consumed Alcohol? 40 Information not available 05/06/2023 What Is Your Level Of Caffeine Consumption? Occasional [id number] Information not available 04/25/2020 In The 14 [...] Type Of Diet Are You Following? REGULAR [id number] Information not available 04/25/2020 Which Illicit Or Recreational Drugs Have You Used? No [id number] Information not available 04/25/2020 Do You Reside In Or Have You Traveled To An Area Where Ebola Virus Transmission Is Active? No [id number] Information not available 04/25/2020 Education 4 Year College [employer] Information not available 10/06/2012 What Is Your Occupation? Retired. [id number] Information not available 04/25/2020 How Many Days [...] Of Your Most Recent Tobacco Screening? 07/24/2018 [id number] Information not available 04/25/2020 What Is Your Relationship Status? Single Partner ... Information not available 05/06/2023 Are You Sexually Active? Yes [id number] Information not available 04/25/2020 How Much Tobacco Do You Smoke? No [id number] Information not available 04/25/2020 General Stress Level Medium Information not available 03/24/2017 Do You Feel Stressed (tense, Restless, Nervous, Or Anxious, Or Unable To Sleep At Night)? JOSH Found Something On Her Breast Information not available 05/06/2023 Do You Use Any Illicit Or Recreational Drugs? No Information not available 05/06/2023 How Many Years Have You Smoked Tobacco? 0 [id number] Information not available 04/25/2020 Have You Recently [...] Time What is your exercise level? Occasional [id number] Information not available 04/25/2020 Mental Status None recorded. Family History Relationship Description Onset Age of this Age Resolved Age Notes LastModified by Organization Details LastModified Time Mother Myocardial infarction previo usly record ed as Heart Attack ([place]) Not available 01/30/2015 13:04:49 Father Myocardial infarction previo usly record ed as Heart Attack ([place]) Not available 01/30/2015 13:04:49 Medical History Condition Response Anesthesia complications N High Blood Pressure N Candidate for MyRisk panel N Autoimmune Condition Y Thyroid Problems N Kidney or Bladder Problems Y GI Problems Y Lung Disease N Depression N Defects or Inherited Disease N History of Ovarian Cancer N Anemia Y History of Breast Cancer N DELIO exposure N BRCA testing in past N Osteopenia N Psychiatric Illness N Anxiety Disorder N Diabetes N Arthritis Y Headaches or Migraines N Infertility N Asthma N History of Cancer N Endometriosis N Hepatitis N Heart Disease N Hypertension N Osteoporosis [...] Ana Karen null, [place] [facility], 10/18/2013 08:20:45 Influenza, split virus, trivalent, preservative 4 completed Ana Karen null, [place] [facility], 12/26/2014 08:57:35 Influenza, split virus, quadrivalent, preservative 7 completed Amy Meczywor null, [place] - [facility], 03/24/2017 09:35:37 Influenza, MDCK, quadrivalent, preservative 9 completed Amy Meczywor null, [place] - [facility], 05/06/2023 14:33:31 Influenza, MDCK, quadrivalent, preservative 8 completed Amy Meczywor null, [place] - [facility], 05/06/2023 14:33:31 Influenza, high-dose, quadrivalent, PF 3 completed Amy Meczywor null, [place] - [facility], 05/06/2023 14:33:31 Influenza, high-dose, quadrivalent, PF 2 completed Amy Meczywor null, [place] [facility], 05/06/2023 14:33:31 COVID-19, mRNA, LNP-S, PF, 30 mcg/0.3 mL dose 1 completed Amy Meczywor null, [place] - [facility], 05/06/2023 14:33:31 COVID-19, mRNA, LNP-S, PF, 30 mcg/0.3 mL dose 1 completed Amy Meczywor null, [place] - [facility], 05/06/2023 14:33:31 COVID-19, mRNA, LNP-S, PF, 30 [...] Amy Meczywor null, [place] - [facility], 05/06/2023 14:33:31 Td (adult), 5 Lf tetanus toxoid, preservative free, adsorbed 3 completed Amy Meczywor null, [place] - [facility], 05/06/2023 14:33:31 DTaP 3 completed Amy Meczywor null, [place] [facility], 05/06/2023 14:33:31 Past Encounters Encounter ID Performer Location Encounter Start Date Encounter Closed Date Diagnosis/Indication Diagnosis SNOMED-CT Code Diagnosis ICD10 Code Diagnosis Note [id number] MD BLOSSOM Campbell MD [address] [facility] [place] [address] 10/06/2012 10:37:44 10/06/2012 14:36:12 [id number] BLOSSOM MEJIA MD [address] [facility] [place] [address] 10/18/2013 08:02:15 10/18/2013 14:57:26 Specialized medical examination [id number] Screening for malignant neoplasm of rectum 270553389 Screening mammography 43966470 Menopausal syndrome 156155888 Postmenopa usal bleeding [id number] BLOSSOM MEJIA MD [address] [facility] [place] [address] 12/26/2014 08:41:17 12/26/2014 11:10:38 Specialized medical examination [id number] Screening for malignant neoplasm of rectum 914453176 Screening mammography 76026476 Acute lowe r urinary tract infection 983078255 Menopausal syndrome [id number] BLOSSOM MEJIA MD [address] [facility] [place] [address] 01/30/2015 09:21:58 01/30/2015 13:22:11 Acute lower urinary tract infection [id number] MD BLOSSOM Campbell MD [address] [facility] [place] [address] 03/24/2017 09:19:57 03/24/2017 11:03:42 Specialized medical examination 38500617 Z01.419 Screening for malignant neoplasm of rectum 980406049 Z12.12 Screening mammography 24 130238 Z12.31 Acute lowe r urinary tract infection 755078505 R30.0 [id number] MD BLOSSOM Campbell MD [address] [facility] [place] [address] 07/09/2018 12:58:34 07/09/2018 15:16:35 Specialized medical examination 41890763 Z01.419 Screening for malignant neoplasm of rectum 100075703 Z12.12 Screening mammography 24 848912 Z12.31 Dysuria 88557161 R30.0 Acute lowe r urinary tract infection 277102170 R30.0 [id number] MD BLOSSOM Campbell MD [address] [facility] [place] [address] 07/24/2018 13:30:27 07/27/2018 07:54:31 Acute lower urinary tract infection [id number] R30.0 [id number] MD BLOSSOM Campbell MD [address] [facility] [place] [address] 05/06/2023 14:27:26 05/06/2023 15:34:53 Screening for malignant neoplasm of cervix 511761029 Z12.4 Screening mammography 24 693335 Z12.31 Screening for osteoporosis 940072320 N95.8 Rheumatoid arthritis 698 36965 M06.9 Gout 75115144 M10.9 Fibromyalgia 279535869 M 79.7 Health Concerns Section Related Observation LastModified by Organization Detai ls LastModified Time None Recorded Concern Status LastModified by Organization Details LastModified Time None Recorded Advance Directives Directive None Recorded Payers Encounter Date Sequence Insurance Name Policy Number Policy Solo Covered Member ID Solo Member ID Guarantor Name 01/30/2015 2 [place] [employer] [place] [employer] [place] [employer] 104 Flaquita Deng [id number] Flaquita Deng 03/24/2017 2 [place] 104 Flaquita Deng [id number] Flaquita Deng 07/09/2018 2 [place] 104 Flaquita Deng [id number] Flaquita Deng 07/24/2018 2 [facility] - [place]IC OPTION 104 Flaquita Deng [id number] Flaquita Deng 05/06/2023 2 [facility] - [place] [place]ION 104 Flaquita Deng [id number] Flaquita Deng 05/06/2023 1 [place] [facility] Flaquita Deng [id number] Flaquita Deng Notes Date Note Type [...] her mid suprapubic area. Blossom Mejia MD [address] [place] [address],[address], [place], [address], [place] [facility], [...] check urine culture. Blossom Mejia MD [address], [place], [address], [employer] [facility], 07/09/2018 13:56:12 07/24/2018 text/html she is here for CAREY after UTI treated with macrobid, to which it was sensitive. She feels much improved, the pressure is gone. Blossom Mejia MD [address], [place], [address], [employer] [facility], 07/24/2018 15:55:05 05/06/2023 text/html She is here for annual, has not been here since 2019. She had been advised that we did not take new Medicare patients however she started she had [employer] insurance. When she arrived today she [...] very concerned she will not have a emergency physician doctor to refer her to the surgery department. However once this exam and the breast issues are resolved then she will need to find a emergency physician doctor who accepts new Medicare. She understands [...] diagnosed with gout. Blossom Mejia MD [address] [facility],[address], [place], [address], [place] [facility], 05/06/2023 15:15:08 OBGyn Episode No OBEpisode recorded.
--- OUTSIDE RECORDS SUMMARY | 2024-08-10 14:22 | XMS_ITS | Clinical Summary ---
Author Organization [facility] Facility Address [address] [address] Care Team Providers Care Electrical Tryout Person Name Role Phone Vincent Polanco MD Primary Care Provider [phone] Allergies Active Allergy Reactions Criticality Noted Date [...] a day 05/11/2020 Active ergocalciferol 1.25 MG (10568 UT) capsule Take 1 capsule (50,000 Units [...] Wit h Preservative 04/23/2018 PPD Test 10/15/2010 ALICE App SARS-COV-2 09/27/2021,10/08/2020,09/16/19 21 Pneumococcal Conjugate 13-Valent 09/12/2014 [...] patient's age to complete this topic Insurance [facility] MEDICARE [facility] MEDICARE Care Teams Electrical Tryout Person Relationship Specialty Start Date End Date Vincent Polanco MD PCP - General 07/03/20
== END 2024-08-10 14:30 | disposition home or self-care (01) ==
PROVIDERS: Absent Provider Internal Medicine Rheumatology; PCP Internal Medicine; Visit Provider Internal Medicine Rheumatology
DX: M06.9 Rheumatoid arthritis, unspecified (principal); R74.01 Elevation of levels of liver transaminase levels; M17.0 Bilateral primary osteoarthritis of knee; Z79.899 Other long term (current) drug therapy
CPT/HCPCS: 99214; G2211

== ENCOUNTER → 2024-08-10 13:25 | Outpatient (BNVA) | payer MEDICARE, BC, SELFPAY | PROVIDERS: Absent Provider Internal Medicine Rheumatology; PCP Internal Medicine; Visit Provider Internal Medicine Rheumatology | DX: M06.9 Rheumatoid arthritis, unspecified (principal); R74.01 Elevation of levels of liver transaminase levels; M17.0 Bilateral primary osteoarthritis of knee; Z79.899 Other long term (current) drug therapy | CPT/HCPCS: 99212 ==

== ENCOUNTER 2025-03-03 13:23 | Outpatient (REF) | payer MEDICARE, BC, SELFPAY ==
--- OUTSIDE RECORDS SUMMARY | 2025-03-03 17:23 | XMS_ITS ---
Author Name [facility] Organization Unknown Care Team Organization Name Specialty Phone Email Start Date End Da te [facility] Vincent Polanco Primary Care 11/29/2022 02/09/20 [facility] Termed, PROVIDER Primary Care 04/30/202201/21
--- OUTSIDE RECORDS SUMMARY | 2025-03-03 17:23 | XMS_ITS | Clinical Summary ---
Author Organization [facility] Facility Address [address] [address] Care Team Providers Care Zmt Operator Name Role Phone Vincent Polanco MD Primary Care Provider [phone] Allergies Active Allergy Reactions Criticality Noted Date [...] a day 05/11/2020 Active ergocalciferol 1.25 MG (24592 UT) capsule Take 1 capsule (50,000 Units [...] Unspecified hearing loss 10/18/2005 Rheumatoid arthritis Immunizations Immunization Administration Dates Next Due DTaP 06/23/2012 Influenza Split High Dose Pr eservative Free IM 01/30/2023,04/25/2021,03/20/2020 Influenza TIV (IM) 05/23/2016, 5,05/26/2014,04/22,03/04/2013,02/25/2012,06/23/2011 ,04/30/2011,04/04/2010,05/02/2009,03/24,04/10/2007,04/25/2006 Influenza, MDCK, Quadrivalen t, with preservative 03/01/2019,05/01/2018,03/18/2017 Influenza, Quadrivalent, Wit h Preservative 04/23/2018 PPD Test 10/15/2010 Gigalocal SARS-COV-2 09/27/2021,10/08/2020,09/16/19 21 Pneumococcal Conjugate 13-Valent 09/12/2014 [...] Cancer Screening: Sigmoidoscopy 12/28/2003 Influenza Vaccine (#1) 2025 3, 04/25/2021, 03/20/2020, Additional history exists Pneumococcal Vaccine: 50+ Years Completed 03/20/2020, 09/12/2014, 08/28/2010 Pneumococcal Vaccine: Peds (0 to 5 Years) and At-Risk Patients (6 to 49 Years) Discontinued 03/20/2020, 09/12/2014, 08/28/2010 Hepatitis B Vaccine Aged Out No longe r eligible based on patient's age to complete this topic Insurance [facility] Medicare [facility] Medicare Care Teams Zmt Operator Relationship Specialty Start Date End Date Vincent Polanco MD PCP - General 07/03/20
[2025-03-03 18:03] LABS: Alanine Aminotransferase 25 U/L (0-31); Albumin Level 4.6 g/dL (3.5-5.0); Alkaline Phosphatase 100 U/L (39-117); Aspartate Amino Transferase 34 U/L (5-31); Total Protein 7.2 g/dL (6.5-8.0)
== END 2025-03-03 13:24 | disposition home or self-care (01) ==
LOC: HO.HKASLDS 13:23
PROVIDERS: Visit Provider Internal Medicine Rheumatology
DX: R74.01 Elevation of levels of liver transaminase levels (principal)
CPT/HCPCS: 36415; 80076

== ENCOUNTER 2025-05-26 13:18 | Outpatient (REF) | payer MEDICARE, BC, SELFPAY ==
[2025-05-26 17:45] LABS: MANUAL DIFF FLAG NO
[2025-05-26 18:07] LABS: Hematocrit 45.2 % (37.0-47.0); Hemoglobin 14.7 g/dl (12.0-16.0); Imm Gran Abs Auto 0.02 X10*3/uL (0.00-0.03); Imm Gran Pct Auto 0.3 % (0.0-0.4); Lymphocytes Absolute Auto 1.3 X10*3/uL (1.2-4.9); Mean Corpuscular HGB Conc 32.5 g/dl (31.0-35.0); Mean Corpuscular Hemoglobin 31.5 pg (27.0-33.0); Mean Corpuscular Volume 96.8 fL (80.0-98.0); NRBC Abs Auto 0.000 X10*3/uL (0.0-0.012); NRBC Pct Auto 0.0 /100WBC (0.0-0.2); Platelet Count 328 X10*3/uL (160-400); Red Blood Count 4.67 X10*6/uL (4.20-5.50); White Blood Count 7.3 X10*3/uL (4.8-10.8)
[2025-05-26 18:18] LABS: Alanine Aminotransferase 35 U/L (0-31); Aspartate Amino Transferase 37 U/L (5-31); Cholesterol 267 mg/dL (<200); Estimated Glomerular Filt Rate 33; HDL Cholesterol 44 mg/dL (>40); Triglycerides 274 mg/dL (<150); Uric Acid 9.8 mg/dL (2.4-5.7)
== END 2025-05-26 13:19 | disposition home or self-care (01) ==
LOC: HO.HKASLDS 13:18
PROVIDERS: PCP Internal Medicine; Visit Provider Internal Medicine Rheumatology
DX: Z13.6 Encounter for screening for cardiovascular disorders (principal); M06.9 Rheumatoid arthritis, unspecified
CPT/HCPCS: 36415; 80061; 82565; 84450; 84460; 84550; 85025; 85652; 86140

== ENCOUNTER 2025-05-31 13:06 | Outpatient (AMB) | payer MEDICARE, BC, SELFPAY ==
--- NOTE | 2025-05-31 13:08 | MHC.OFFVIS ---
Vital Signs 05/31/25 13:09 Height 5 ft 7 in Weight 219 lb 9.286 oz BMI 34.4 BP 140/80 H Blood Pressure Location Rt brachial Position Sitting Pulse 87 Pulse Source Pulse Oximeter Pulse Oximetry (%) 98 Oxygen Delivery Method Room Air Intake Visit Reasons: RA Intake Note: Patient presents today for rheumatoid arthritis. Accompanied by: Self / Same As Patient Allergies cat dander Allergy (Mild, Verified 05/31/25 13:12) Watery Eye environmental allergies Allergy (Mild, Verified 05/31/25 13:12) Itching ragweed pollen Allergy (Mild, Verified 05/31/25 13:12) Itchy Eyes goldenrod Allergy (Mild, Uncoded 05/11/24 14:52) Sneezing oak trees Allergy (Mild, Uncoded 05/11/24 14:52) Sneezing Medication List - Last Reconciled 05/31/25 by Flavio Foster MD allopurinol 300 mg PO DAILY colchicine 1.2 mg (2 x 0.6 mg) PO DAILY omeprazole 40 mg PO DAILY tofacitinib (Xeljanz) 5 mg PO DAILY HPI HPI RA: Details: Lost to follow-up 07/2024. She had an appointment in October but had to cancel due to URI. She has not been on xeljanz since 06/2024. Last prescription was prescribed by [facility]. Joint pain and stiffness has worse in the last two months. She has pain in whole body. She is waking up with pain. MS 30 minutes. Physical Exam Vital Signs: Last Vital Signs Pulse 87 05/31/25 13:09 BP 140/80 H 05/31/25 13:09 Pulse Ox 98 05/31/25 13:09 Oxygen Delivery Method Room Air 05/31/25 13:09 BMI result Body Mass Index 34.4 Const Other: General: Comfortable CVS: RRR Respiratory: clear to auscultation bilaterally. Good respiratory effort Skin: No lesions seen MSK: Synovitis right 5th MCP with tenderness on palpation. Tender right 4th and 2nd PIP. Synovitis of left 2nd and 3rd MCP with tenderness on palpation. Tender left 2nd and 3rd PIP. Good range of motion of upper extremities. Normal external rotation of bilateral hips. Bilateral knee flexion 90 degrees. Bilateral MTP tenderness with synovitis of right MTPs. Assessment & Plan Assessment & Plan (1) Rheumatoid arthritis: Comment: She has been off of DMARD since June 2024. Inflammatory arthritis is uncontrolled. Transaminitis is improving off of Xeljanz, and allopurinol. She continues to have hyperlipidemia. I do not recommend restarting Xeljanz. We discussed treating her inflammatory arthritis with short course of prednisone with bridge to hydroxychloroquine. We discussed side effects, benefits and drug monitoring. Creatinine has decreased in function. I will be repeating labs this visit. Seronegative. Onset 2008. Sulfasalazine ineffective and caused GI side effect. Failed Enbrel 10/2010 to 11/2011, Humira 11/2011-, cimzia 05/2018-10/2017. Xeljanz 11/09/2017 to 12/2021 then restarted. Code(s): M06.9 - Rheumatoid arthritis, unspecified Category: Medical Plan: Creatinine ordered She will call her lumber loader's and find out if it is okay for her to start hydroxychloroquine. She will then call my office for update. I will then send prescription for hydroxychloroquine 400 mg daily. Information on hydroxychloroquine printed for patient Prednisone course prescribed Return to clinic in 3 months (2) Transaminitis: Comment: Mild, improving off of Xeljanz and allopurinol Code(s): R74.01 - Elevation of levels of liver transaminase levels Category: Medical Plan: Liver ultrasound ordered with elastography for further evaluation (3) Osteoarthritis of knees, bilateral: Comment: She started experiencing right knee pain in the last week but it is tolerable. Previously treated with bilateral knee cortisone injection December 2023. X-ray June 2022 reveals mild osteoarthritis. Code(s): M17.0 - Bilateral primary osteoarthritis of knee Category: Medical Qualifiers: Osteoarthritis type: primary Qualified Code(s): M17.0 - Bilateral primary osteoarthritis of knee Plan: Monitor clinically She will call office if knee pain progresses for an appointment for cortisone injections. 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 Category: Medical Plan: See above Orders: Orders Creatinine Today M06.9 - Rheumatoid arthritis, unspecified, Z79.899 - Other assisted (current) drug therapy US abdomen philip w elastography Today R74.01 - Elevation of levels of liver transaminase levels Medications: New prednisone Take 4 tablets daily 3 days, 3 tablets daily 3 days, 2 tablets daily 3 days, 1 tablets daily 3 days then stop 5 mg PO DIRECTED 30 tabs 0RF Discontinued colchicine Discontinued Reason: Doctor's Order 1.2 mg (2 x 0.6 mg) PO DAILY 30 tabs 5RF Coding Level of Care Code Est Pt Level 4 (66999) Complex visit Add On G2211 Diagnoses Rheumatoid arthritis M06.9 Transaminitis R74.01 Primary osteoarthritis of both knees M17.0 Osteoarthritis type: primary 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
[2025-05-31 13:09] VITALS: BP 140/80; PULSE 87; O2SAT 98; BMI 34.4
== END 2025-05-31 14:03 | disposition home or self-care (01) ==
LOC: HO.RHES 13:07
PROVIDERS: PCP Internal Medicine; Visit Provider Internal Medicine Rheumatology
DX: M06.9 Rheumatoid arthritis, unspecified (principal); R74.01 Elevation of levels of liver transaminase levels; M17.0 Bilateral primary osteoarthritis of knee; Z79.899 Other long term (current) drug therapy
CPT/HCPCS: 99214; G2211

== ENCOUNTER 2025-05-31 13:06 | Outpatient (REF) | payer MEDICARE, BC, SELFPAY ==
[2025-05-31 18:28] LABS: Estimated Glomerular Filt Rate 34
--- OUTSIDE RECORDS SUMMARY | 2025-05-31 20:06 | XMS_ITS | Data Portability ---
Author Organization [place] - [facility],, BLOSSOM MEJIA MD Address [address] [address] Care Team Providers Care Certified Nurse Practitioner Name Role Phone PETAR BARRIOS Assessment No assessment recorded. Plan of Treatment Reminders Order Date Submit Date Provider Last Modified By Organization Details Last Modified Time Details Appointments None recorded. Lab pap test, thinprep, cervical 2022 023 [email or web address] [facility] (Centralized Electronic Ordering - All Locations), Patient Can Go To The Location Of Their Choice, [address] 3 07:26:54 urinalysi s, dipstick 2018 019 [email or web address] 1 In-Office Order, Internal Use Only DO Not Attach Compendium DO Not Attach Compendium, Do Not Delete/merge, 9 15:14:54 culture, urine 2018 019 [employer], [address] [place], [address], 9 13:49:02 urinalysi s, dipstick 2018 019 [email or web address] In-Office Order, Internal Use Only DO Not Attach Compendium DO Not Attach Compendium, Do Not Delete/merge, 9 15:15:53 culture, urine 2018 019 [employer], [address] [place] [address], [address], 9 14:20:54 pap test, thinprep, cervical 2018 019 [facility], Cytopathology Service, [address] [place], [address], 9 16:48:00 fecal occult blood, stool 2018 019 ARISTIDES In-Office Order, Internal Use Only DO Not Attach Compendium DO Not Attach Compendium, Do Not Delete/merge, [id number] 9 13:56:30 urinalysi s, dipstick 2016 017 [email or web address] 1 In-Office Order, Internal Use Only DO Not Attach Compendium DO Not Attach Compendium, Do Not Delete/merge, [id number] 7 09:58:32 culture, urine 2016 017 ARISTIDES In-Office Order, Internal Use Only DO Not Attach Compendium DO Not Attach Compendium, Do Not Delete/merge, [id number] 7 04:21:04 pap test, thinprep, cervical 2016 017 [facility], Cytopathology Service, [address] [place], [address], 7 13:30:28 fecal occult blood, stool 2016 017 ARISTIDES In-Office Order, Internal Use Only DO Not Attach Compendium DO Not Attach Compendium, Do Not Delete/merge, [id number] 7 10:42:47 urinalysi s, dipstick 2014 015 [email or web address] 1 In-Office Order, Internal Use Only DO Not Attach Compendium DO Not Attach Compendium, Do Not Delete/merge, [id number] 5 13:05:27 culture, urine 2014 015 ARISTIDES [employer], [address] [place], [address], 5 04:35:29 Referral None recorded. Procedures None recorded. Surgeries None recorded. Imaging MAMMO, screening , digital, bilateral - Breast Aspiratio n and/or Biopsy if needed 2022 023 [email or web address] [facility], [address], [place], [address], 5 07:17:18 bone density 2022 023 chan [facility] ([facility]), [address] [place], [address], 5 07:38:02 MAMMO, screening , digital, bilateral 2018 019 [facility] ([facility] [facility]), [address] [place], [address], 9 16:22:09 MAMMO, screening , digital, bilateral 2016 017 [facility] ([facility]), [address] [place], [address], 7 12:57:35 Medication Orders nitrofura ntoin monohydra te/macroc rystals 100 mg capsule 2018 019 [email or web address] Not available 3 14:35:23 nitrofura ntoin monohydra te/macroc rystals 100 mg capsule 2016 017 [email or web address] Not available 3 14:35:23 Patient TargetsNo targets recorded. Patient Instructions Encounter Date Encounter Id Patient Instructions Last Modified By Organization Details Last Modified Time 01/30/2015 [id number] urinary tract infection in women information [email or web address] Not available 01/30/2015 13:50:14 She is here for her CAREY after recent UTI. Her urine dip still has some WBC, check C and S. Ways to prevent recurrences discussed. Face to face discussion 15 minutes Not available 01/30/2015 13:05:27 03/24/2017 [id number] urinary tract infection in women information [email or web address] [...] questions answered. Not available 03/24/2017 10:38:35 07/09/2018 [id number] urinary tract infection in women information [facility] Not available 07/09/2018 13:55:22 painful urinatio n (dysuria): care instructions [facility] Not available 07/09/2018 13:37:23 She is here [...] questions answered. Not available 07/09/2018 13:55:21 07/24/2018 [id number] urinary tract infection in women information Not available 07/24/2018 15:20:55 she is here for CAREY after UTI treated with macrobid, to which it was sensitive. She feels much improved, the pressure is gone. We discused ways to prevent recurrent UTI. Check urine culture, dip suggests the infection is resolved. All questions answered. Face to face discussion 15 minutes Not available 07/24/2018 15:54:40 05/06/2023 [id number] gout: care instructions Not available 05/06/2023 15:14:36 Rheumatoid Arthritis (RA): Care Instructions Not available 05/06/2023 15:14:36 atrophic vaginit is: care instructions Not available 05/06/2023 15:10:55 learning about healthy weight Not available 05/06/2023 15:10:55 She is here for annual, has not been here since 2019. She had been advised that we did not take new Medicare patients however she started she had [employer] insurance. When she arrived today she stated [...] very concerned she will not have a service manager doctor to refer her to the surgery department. However once this exam and the breast issues are resolved then she will need to find a service manager doctor who accepts new Medicare. She understands [...] that she would prefer to go to [facility] for surgery if her breast biopsy [...] DO Not Attach Compendium, Do Not Delete/merge, [id number] 03/24/2017 09:53:59 03/24/2003/24/2017 urina lysis , dipst ick PORFIRIO Negati ve Not Available In-Office Order Internal Use Only DO Not Attach Compendium DO Not Attach Compendium, Do Not Delete/merge, [id number] 03/24/2017 09:53:59 03/24/2003/24/2017 urina lysis , dipst ick KET Negati ve Not Available In-Office Order Internal Use Only DO Not Attach Compendium DO Not Attach Compendium, Do Not Delete/merge, [id number] 03/24/2017 09:53:59 03/24/2003/24/2017 urina lysis , dipst ick SG 1.020 Not Available In-Office Order Internal Use Only DO Not Attach Compendium DO Not Attach Compendium, Do Not Delete/merge, [id number] 03/24/2017 09:53:59 03/24/2003/24/2017 urina lysis , dipst ick BLO Hemoly zed : Trace Not Available In-Office Order Internal Use Only DO Not Attach Compendium DO Not Attach Compendium, Do Not Delete/merge, [id number] 03/24/2017 09:53:59 03/24/2003/24/2017 urina lysis , dipst ick pH 5.0 Not Available In-Office Order Internal Use Only DO Not Attach Compendium DO Not Attach Compendium, Do Not Delete/merge, [id number] 03/24/2017 09:53:59 03/24/2003/24/2017 urina lysis , dipst ick PRO Negati ve Not Available In-Office Order Internal Use Only DO Not Attach Compendium DO Not Attach Compendium, Do Not Delete/merge, [id number] 03/24/2017 09:53:59 03/24/2003/24/2017 urina lysis , dipst ick URO 0.2 E.U. / dl Not Available In-Office Order Internal Use Only DO Not Attach Compendium DO Not Attach Compendium, Do Not Delete/merge, [id number] 03/24/2017 09:53:59 03/24/2003/24/2017 urina lysis , dipst ick NIT negati ve Not Available In-Office Order Internal Use Only DO Not Attach Compendium DO Not Attach Compendium, Do Not Delete/merge, [id number] 03/24/2017 09:53:59 03/24/2003/24/2017 urina lysis , dipst ick MARIO Small Not Available In-Office Order Internal Use Only DO Not Attach Compendium DO Not Attach Compendium, Do Not Delete/merge, [id number] 03/24/2017 09:53:59 03/24/2003/24/2017 fecal occul t blood , stool Occult Blood negati ve Not Available In-Office Order Internal Use Only DO Not Attach Compendium DO Not Attach Compendium, Do Not Delete/merge, [id number] 03/24/2017 09:43:46 01/31/20 15 01/30/2015 urina lysis , dipst ick GLU Negati ve Not Available In-Office Order Internal Use Only DO Not Attach Compendium DO Not Attach Compendium, Do Not Delete/merge, [facility] 01/30/2015 09:43:02 01/31/2001/30/2015 urina lysis , dipst ick PORFIRIO Negati ve Not Available In-Office Order Internal Use Only DO Not Attach Compendium DO Not Attach Compendium, Do Not Delete/merge, [facility] 01/30/2015 09:43:02 01/31/2001/30/2015 urina lysis , dipst ick KET Negati ve Not Available In-Office Order Internal Use Only DO Not Attach Compendium DO Not Attach Compendium, Do Not Delete/merge, [facility] 01/30/2015 09:43:02 01/31/2001/30/2015 urina lysis , dipst ick SG 1.030 Not Available In-Office Order Internal Use Only DO Not Attach Compendium DO Not Attach Compendium, Do Not Delete/merge, [facility] 01/30/2015 09:43:02 01/31/2001/30/2015 urina lysis , dipst ick BLO Negati ve Not Available In-Office Order Internal Use Only DO Not Attach Compendium DO Not Attach Compendium, Do Not Delete/merge, [facility] 01/30/2015 09:43:02 01/31/2001/30/2015 urina lysis , dipst ick pH 5.0 Not Available In-Office Order Internal Use Only DO Not Attach Compendium DO Not Attach Compendium, Do Not Delete/merge, [facility] 01/30/2015 09:43:02 01/31/2001/30/2015 urina lysis , dipst ick PRO Negati ve Not Available In-Office Order Internal Use Only DO Not Attach Compendium DO Not Attach Compendium, Do Not Delete/merge, [facility] 01/30/2015 09:43:02 01/31/2001/30/2015 urina lysis , dipst ick URO 0.2 E.U. / dl Not Available In-Office Order Internal Use Only DO Not Attach Compendium DO Not Attach Compendium, Do Not Delete/merge, [facility] 01/30/2015 09:43:02 01/31/2001/30/2015 urina lysis , dipst ick NIT negati ve Not Available In-Office Order Internal Use Only DO Not Attach Compendium DO Not Attach Compendium, Do Not Delete/merge, [id number] 01/30/2015 09:43:02 01/31/20 15 01/30/2015 urina lysis , dipst ick MARIO Small Not Available In-Office Order Internal Use Only DO Not Attach Compendium DO Not Attach Compendium, Do Not Delete/merge, [id number] 01/30/2015 09:43:02 01/31/20 15 01/30/2015 cultu re, urine comments [facility] [address] [facility] [place] [address] [phone] SOURC E: URINE ,ROBERT N CATCH ; Not Available [facility] [address] [place], [address], 02/03/2015 04:25:24 01/31/20 15 02/02/2015 cultu re, urine [facility] culture [facility] [address] [place] [address] URINE CULTU RE ADDIT IONAL COLON Y TYPE( S) PRESE NT IN INSIG NIFIC ANT AMOUN TS. F URINE CULTU RE ENTER OCOCC US FAECA LIS ( ENTFA E ) F URINE CULTU RE COLON Y COUNT F URINE CULTU RE 50,00 0-100 ,000 F Not Available [facility] [address] [place], [address], 02/03/2015 04:25:24 01/31/20 15 01/30/2015 antib iotic sensi tivit y, isola te comments PAREN T ORGAN ISM: ENTER OCOCC US FAECA LIS ( ENTFA E ) [facility] [address] [facility] [place] [address] [phone] SOURC E: URINE ,ROBERT N CATCH ; Not Available [facility] [address] [place], [address], 02/03/2015 04:24:22 01/31/20 15 02/02/2015 antib iotic sensi tivit y, isola te gram positive susceptibili ty [facility] [address] [place] [address] AMPIC ILLIN <=2 S F CIPRO FLOXA LIONEL 1 S F LEVOF LOXAC IN 1 S F LINEZ OLID 2 S F NITRO FURAN TOIN <=16 S F PENIC ILLIN 2 S F TETRA CYCLI NE >=16 R F TIGEC YCLIN E <=0.1 2 S F VANCO MYCIN 2 S F Not Available [facility] [address] [place], [address], 02/03/2015 04:24:22 03/24/20 17 03/24/2017 pap, LB [id number] ThinP rep Pap, Image d: NEGAT MONIKA [...] neg, z12.4 , z01.4 19 Not Available [facility], Cytopathology Service [address] [place], [address], 03/25/2017 13:30:28 03/24/20 17 03/24/2017 cultu re, urine comments [facility] [place] [address] [phone] SOURC E: URINE ,ROBERT N CATCH ; Not Available [facility] [address] [place], [address], 03/26/2017 04:21:04 03/24/20 17 03/25/2017 cultu re, urine urine culture [facility] [address] [place] [address] COLLE CTION TIME: 2016 10:30 :00 AM -04:0 0 URINE CULTU RE No growt h F Not Available [facility] [address] [place], [address], 03/26/2017 04:21:04 01/17/20 19 07/09/2018 cultu re, urine comments [facility], [facility] [address] [place] [address] Medic al Direc tor - Allis on Mendez carrasquillo MD [facility] E: URINE ,ROBERT N CATCH ; Not Available [facility] [address] [place], [address], 07/12/2018 09:33:17 07/09/19 19 07/12/2018 cultu re, urine urine culture [facility] [address] [place] [address] Medic al Direc tor - Allis on Mendez carrasquillo MD COLLE CTION TIME: 2018 1:00: 00 PM -05:0 0 URINE CULTU RE ESCHE IMER A COLI ( ESCCO L ) F URINE CULTU RE COLON Y COUNT F URINE CULTU RE >100, 000 F Not Available [facility] [address] [place], [address], 07/12/2018 09:33:17 07/09/19 19 07/09/2018 pap, LB [id number] ThinP rep Pap, Image d: NEGAT MONIKA FOR SQUAM OUS INTRA EPITH ELIAL LESIO N AND MALIG AGUILAR . Joann Hussein a , CT( CP) (Case elect denilson sykes fernanda d 07 10 2018) ADEQU ACY: Satis facto ry Endoc ervic al/tr ansfo rmati on zone compo nent absen t. SOURC E: ThinP rep Pap HPV IF ASCUS , Cervi elo, Image d CLINI ELO INFOR MATIO N: HPV If Diagn osis of ASCUS . LPS NEG [Z12. 4] Not Available [facility], Cytopathology Service [address] [place], [address], 07/10/2018 16:48:00 07/09/19 19 07/09/2018 antib iotic sensi tivit y, isola te comments PAREN T ORGAN ISM: ESCHE IMER A COLI ( ESCCO L ) [facility] [address] [facility] [place] [address] Medic al Direc tor - Allis on Mendez carrasquillo MD SOURC E: URINE ,ROBERT N CATCH ; Not Available [facility] [address] [place], [address], 07/12/2018 09:33:21 07/09/19 19 07/12/2018 antib iotic sensi tivit y, isola te gram negative susceptibili ty [facility], [facility] [address] [facility] [place] [address] Medic al Direc tor - Allis on [...] S F Not Available [facility] [address] [place], [address], 07/12/2018 09:33:21 07/09/19 19 07/09/2018 urina lysis , dipst ick GLU Negati ve Not Available In-Office Order Internal Use Only DO Not Attach Compendium DO Not Attach Compendium, Do Not Delete/merge, [id number] 07/09/2018 13:42:07/09/19 19 07/09/2018 urina lysis , dipst ick PORFIRIO Negati ve Not Available In-Office Order Internal Use Only DO Not Attach Compendium DO Not Attach Compendium, Do Not Delete/merge, [id number] 07/09/2018 13:42:07/09/19 19 07/09/2018 urina lysis , dipst ick KET Negati ve Not Available In-Office Order Internal Use Only DO Not Attach Compendium DO Not Attach Compendium, Do Not Delete/merge, [facility] 07/09/2018 13:42:07/09/19 19 07/09/2018 urina lysis , dipst ick SG 1.010 Not Available In-Office Order Internal Use Only DO Not Attach Compendium DO Not Attach Compendium, Do Not Delete/merge, [facility] 07/09/2018 13:42:07/09/19 19 07/09/2018 urina lysis , dipst ick BLO Small Not Available In-Office Order Internal Use Only DO Not Attach Compendium DO Not Attach Compendium, Do Not Delete/merge, [facility] 07/09/2018 13:42:07/09/19 19 07/09/2018 urina lysis , dipst ick pH 6.0 Not Available In-Office Order Internal Use Only DO Not Attach Compendium DO Not Attach Compendium, Do Not Delete/merge, [id number] 07/09/2018 13:42:07/09/19 19 07/09/2018 urina lysis , dipst ick PRO 30 Not Available In-Office Order Internal Use Only DO Not Attach Compendium DO Not Attach Compendium, Do Not Delete/merge, [id number] 07/09/2018 13:42:07/09/19 19 07/09/2018 urina lysis , dipst ick URO 0.2 E.U. / dl Not Available In-Office Order Internal Use Only DO Not Attach Compendium DO Not Attach Compendium, Do Not Delete/merge, [id number] 07/09/2018 13:42:07/09/19 19 07/09/2018 urina lysis , dipst ick NIT positi ve Not Available In-Office Order Internal Use Only DO Not Attach Compendium DO Not Attach Compendium, Do Not Delete/merge, [id number] 07/09/2018 13:42:01 07/09/19 19 07/09/2018 urina lysis , dipst ick MARIO Large Not Available In-Office Order Internal Use Only DO Not Attach Compendium DO Not Attach Compendium, Do Not Delete/merge, [id number] 07/09/2018 13:42:01 07/09/19 19 07/09/2018 fecal occul t blood , stool Occult Blood negati ve Not Available In-Office Order Internal Use Only DO Not Attach Compendium DO Not Attach Compendium, Do Not Delete/merge, [id number] 07/09/2018 13:18:36 07/24/19 19 07/24/2018 cultu re, urine comments [facility] a [facility] of [employer] [address] [place] [address] Medic al Direc tor - Allis on Mendez carrasquillo MD SOUR E: URINE ,ROBERT N CATCH ; Not Available [facility] [address] [place] [address], [address], 07/25/2018 13:49:02 07/24/19 19 07/25/2018 cultu re, urine urine culture [facility], [place] [facility] of [employer] [place] [address] Medic al Direc tor - Allis on Mendez carrasquillo MD [facility] CTION TIME: 019 1:45: 00 PM -05:0 0 URINE CULTU RE No growt h F Not Available [facility] [address] [place] [address], [address], 07/25/2018 13:49:02 07/24/19 19 07/24/2018 urina lysis , dipst ick GLU Negati ve Not Available In-Office Order Internal Use Only DO Not Attach Compendium DO Not Attach Compendium, Do Not Delete/merge, [id number] 07/24/2018 13:51:53 07/24/19 19 07/24/2018 urina lysis , dipst ick PORFIRIO Negati ve Not Available In-Office Order Internal Use Only DO Not Attach Compendium DO Not Attach Compendium, Do Not Delete/merge, [id number] 07/24/2018 13:51:53 07/24/1907/24/2018 urina lysis , dipst ick KET Negati ve Not Available In-Office Order Internal Use Only DO Not Attach Compendium DO Not Attach Compendium, Do Not Delete/merge, [facility] 07/24/2018 13:51:53 07/24/1907/24/2018 urina lysis , dipst ick SG 1.025 Not Available In-Office Order Internal Use Only DO Not Attach Compendium DO Not Attach Compendium, Do Not Delete/merge, [facility] 07/24/2018 13:51:53 07/24/1907/24/2018 urina lysis , dipst ick BLO Hemoly zed : Trace Not Available In-Office Order Internal Use Only DO Not Attach Compendium DO Not Attach Compendium, Do Not Delete/merge, [id number] 07/24/2018 13:51:53 07/24/1907/24/2018 urina lysis , dipst ick pH 5.0 Not Available In-Office Order Internal Use Only DO Not Attach Compendium DO Not Attach Compendium, Do Not Delete/merge, [facility] 07/24/2018 13:51:53 07/24/1907/24/2018 urina lysis , dipst ick PRO Negati ve Not Available In-Office Order Internal Use Only DO Not Attach Compendium DO Not Attach Compendium, Do Not Delete/merge, [facility] 07/24/2018 13:51:53 07/24/1907/24/2018 urina lysis , dipst ick URO 0.2 E.U. / dl Not Available In-Office Order Internal Use Only DO Not Attach Compendium DO Not Attach Compendium, Do Not Delete/merge, [id number] 07/24/2018 13:51:53 07/24/1907/24/2018 urina lysis , dipst ick NIT negati ve Not Available In-Office Order Internal Use Only DO Not Attach Compendium DO Not Attach Compendium, Do Not Delete/merge, [id number] 07/24/2018 13:51:53 07/24/1907/24/2018 urina lysis , dipst ick MARIO Trace Not Available In-Office Order Internal Use Only DO Not Attach Compendium DO Not Attach Compendium, Do Not Delete/merge, [id number] 07/24/2018 13:51:53 05/06/20 23 05/06/2023 [facility] [place] Patie nt Name: FLAQUITA JOE nt : 955 (Age: 67) Lab Acces ángel #: [id number] Colle ction Date: 05/06 Acces ángel Date: 05/07 Sign Out Date: 05/12 Tissu e Sourc e: 1: THINP REP ASSOCIATE ORACLE RETAIL PAP TEST, CERVI ELO: Final Diagn osis: [...] [place] Perfo rmed at [facility] ate Refer ence Labor atory depar tment of Cytol ogy, [address] [place] Clini elo Histo ry (othe r): Z12.4 , LPS 07/09 NEG, LOW RISK Phone #: [phone], On-Ca ll Patho logis t: [address] Not Available [facility] (Centralized Electronic Ordering - All Locations) Patient Can Go To The Location Of Their Choice, [address] 05/12/2023 13:32:43 05/16/20 15 05/15/2015 MAMMO , scree everette, digit al, bilat eral No observ ation record ed. [facility] ([place] [facility]) [address], [place], [address], 05/16/2015 12:13:06 05/20/20 16 05/20/2016 MAMMO , scree everette, digit al, bilat eral No observ ation record ed. [email or web address] [facility] ([place] [facility]) [address] [place], [address], 05/20/2016 12:54:35 05/26/20 17 05/26/2017 MAMMO , scree everette, digit al, bilat eral No observ ation record ed. Not Available 09/2016 13:07:16 05/27/20 18 05/27/2018 MAMMO , scree everette, digit al, bilat eral No observ ation record ed. Not Available 11/2017 08:31:26 05/31/20 19 05/31/2019 MAMMO , scree everette, digit al, bilat eral No observ ation record ed. [facility] ([facility] [facility]) [address] [place], [address], 06/01/2019 08:11:27 10/12/19 21 10/11/2020 MAMMO , scree everette, digit al, bilat eral No observ ation record ed. [email or web address] [facility] Imaging Dept [address] [place] [address], [address], 10/12/2020 08:17:21 10/18/19 21 10/17/2020 MAMMO , diagn ostic , digit al, unila teral No observ ation record ed. [email or web address] Dept [address] [place] [address], [address], 10/17/2020 14:08:40 10/17/19 22 10/16/2021 MAMMO , scree everette, digit al, bilat eral No observ ation record ed. [address], [address], 10/16/2021 16:00:08 04/11/2004/11/2023 MAMMO , scree everette, digit al, bilat eral No observ ation record ed. [email or web address] Dept [address] [place], [address], 04/15/2023 10:28:38 04/22/2004/22/2023 MAMMO , diagn ostic , digit al, unila teral No observ ation record ed. [email or web address] [facility] Imaging Dept [address] [place], [address], 05/30/2023 14:29:26 05/29/20 MAMMO , diagn ostic , digit al, unila teral No observ ation record ed. [facility] [address] [place], [address], 05/29/2023 14:48:50 Result Notes None recorded. Problems Name Problem SNOMED Code Status Onset Date Resolution Date Notes Provider Name and Address Organization Details Recorded Time Postmenopau jacky bleeding 16681406 Active Blossom Mejia MD [address], [place], [address] , [place] - [facility], 4 12:42:32 Acute lower urinary tract infection 491332278 Active Ana de la cruz [place] - [facility], 5 14:10:38 Hearing loss 26578840 Active wears hearing aids Not Available [employer] 3 03:01:06 Diverticula r disease of colon 426117857 Active Not Available [employer] 3 03:01:06 Gastroesoph ageal reflux disease 456180926 Active Not Available [employer] 3 03:01:06 Menopausal syndrome 952054793 Active Blossom Mejia MD [address], [place], [address] , [place] - [facility], 5 10:47:48 Rheumatoid arthritis 16803178 Active Not Available [employer] 3 03:01:06 Uterine leiomyoma 00909700 Active Not Available [facility] 3 03:01:06 Gout 39472544 Active 2022 Blossom Mejia MD [address], [place], [address] , [place] - [facility] in [facility], 3 15:14:17 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 Procedures Surgical History Date Name Laterality Status Provider Name and Address Organization Details Recorded Time 3 Most Recent Mammogram completed Amy Youngblood [place] - [facility], 05/06/2023 14:38:49 Myomectomy completed Ana Jones [place] - [facility] in [facility], 10/06/2012 11:10:16 Imaging Results None recorded. Procedure Notes None recorded. Medical Equipment None [...] No t Available Vitals Date Recorded Body weight Body mass index (BMI) Body height Heart rate Systolic And Diastolic Provider Name and Address Organization Details Last Updated DateTime 07/09/2018 790942.6 9 g 36.2 kg/m2 167.64 cm 91 /min 127/70 mm[Hg] Ana Jones MA - [facility] in [facility], 07/09/2018 13:09:25 Date Recorded Body height Body mass index (BMI) Body weight Heart rate Systolic And Diastolic Provider Name and Address Organization Details Last Updated DateTime 07/24/2018 167.64 cm 36.2 kg/m2 623557.6 9 g 91 /min 152/79 mm[Hg] Amy Lemus [facility] in [facility], 07/24/2018 13:50:30 Date Recorded Body weight Heart rate Body mass index (BMI) Body height Systolic And Diastolic Provider Name and Address Organization Details Last Updated DateTime 01/30/2015 97939.65 874 g 87 /min 32.1 kg/m2 168.91 cm 132/62 mm[Hg] Ana Jones ANNELISE Watkins in [facility], 01/30/2015 09:29:58 Date Recorded Body height Body mass index (BMI) Body weight Heart rate Systolic And Diastolic Provider Name and Address Organization Details Last Updated DateTime 03/24/2017 168.91 cm 31 kg/m2 36187.51 g 80 /min 119/66 mm[Hg] Amy Watkins in [facility], 03/24/2017 09:26:49 Date Recorded Body weight Body mass index (BMI) Body height Body temperature Heart rate Systolic And Diastolic Provider Name and Address Organization Details Last Updated DateTime 3 594775. 15 g 37.5 kg/m2 167.64 cm 98.1 [degF] 85 /min 142/62 mm[Hg] Amy Lemus [facility], 3 14:35:54 Social History Question Answer Notes LastModified by Organizat ion Details LastModified Time Tobacco Smoking Status Never Smoker Not Available [facility] 04/25/2020 03:19:37 How Many Years Have You Consumed Alcohol? 40 Information not available 05/06/2023 What Is Your Level Of Caffeine Consumption? Occasional [id number] Information not available 04/25/2020 In The 14 Days Before Symptom Onset, Have You Had Close Contact With A Laboratory-confir med COVID-19 While That Case Was Ill? No [...] Type Of Diet Are You Following? REGULAR [id number] Information not available 04/25/2020 Which Illicit Or Recreational Drugs Have You Used? No [id number] Information not available 04/25/2020 Do You Reside In Or Have You Traveled To An Area Where Ebola Virus Transmission Is Active? 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 10 Information no t available 03/24/2017 Are There Any Guns Present In Your Home? No Information not available 05/06/2023 High Number Of Sexual Partners No Information not available 03/24/2017 To Which Gender Do You Self-identify? Female Information not available 03/24/2017 Marital Status Single Partner Informatio n not available 05/06/2023 What Was The Date Of Your Most Recent Tobacco Screening? 07/24/2018 [id number] Information not available 04/25/2020 What Is Your Relationship Status? Single Partner ... Information not available 05/06/2023 Are You Sexually Active? Yes [id number] Information not available 04/25/2020 How Much Tobacco Do You Smoke? No [id number] Information not available 04/25/2020 General Stress Level Medium Information not available 03/24/2017 How Many Years Have You Smoked Tobacco? 0 [id number] Information not available 04/25/2020 Have You Recently (within The Last 12 Weeks, Or During A Current ) Traveled To Or Lived In A Zika-affected Area? No Information not available 03/24/2017 How Many Days In The Past Year Have You Consumed 4 Or More Drinks? 0 Information no t available 05/06/2023 Sex: Female Functional Status Question Answer Note LastModified by Organizat ion Details LastModified Time Do you use any illicit or recreational drugs? No Information not available 05/06/2023 What is your level of alcohol consumption? Moderate 1 daily Information not available 05/06/2023 What is your occupation? retired. Information not available 03/24/2017 What is your exercise level? Occasional [id number] Information not available 04/25/2020 Mental Status Question Answer Note LastModified by Organizat ion Details LastModified Time Do you feel stressed (tense, restless, nervous, or anxious, or unable to sleep at night)? [id number] found something on her breast Information not available 05/06/2023 Family History Relationship Description Onset Age of this Age Resolved Age Notes LastModified by Organization Details LastModified Time Mother Myocardial infarction previo [place]ly record ed as Heart Attack ([place]) Not available 01/30/2015 13:04:49 Father Myocardial infarction previo usly [place] ed as Heart Attack [place]) Not available 01/30/2015 13:04:49 Medical History Condition Response Anesthesia complications N High Blood Pressure N Candidate for MyRisk panel N Autoimmune Condition Y Thyroid Problems N Kidney or Bladder Problems Y Depression N GI Problems Y Lung Disease N Defects or Inherited Disease N Anemia Y History of Ovarian Cancer N History of Breast Cancer N DELIO exposure N BRCA testing in past N Osteopenia N Psychiatric Illness N Diabetes N Anxiety Disorder N Arthritis Y Headaches or Migraines N [...] Influenza, split virus, trivalent, preservative 3 completed [facility]ELISE Mc[facility], 10/18/2013 08:20:45 Influenza, split virus, trivalent, preservative 4 completed ANNELISE Mckeon [facility], 12/26/2014 08:57:35 Influenza, split virus, quadrivalent, preservative 7 completed Amy Meczywor null, MA - [facility], 03/24/2017 09:35:37 Influenza, MDCK, quadrivalent, preservative 9 completed Amy Meczywor null, [place] - [facility], 05/06/2023 14:33:31 Influenza, MDCK, quadrivalent, preservative 8 completed Amy Meczywor null, [place] - [facility], 05/06/2023 14:33:31 Influenza, high-dose, quadrivalent, PF 3 completed Amy Meczywor null, [place] - [facility], 05/06/2023 14:33:31 Influenza, high-dose, quadrivalent, PF 2 [...] 30 mcg/0.3 mL dose, maría-sucrose 2 completed Aym Meczywor null, [place] - [facility] [...] Amy Meczywor null, [place] - [facility], 05/06/2023 14:33:31 Influenza, split virus, trivalent, preservative 0 completed Amy Meczywor null, [place] - [facility], 05/06/2023 14:33:31 Influenza, split virus, trivalent, preservative 7 completed Amy Meczywor null, [place] - [facility], 05/06/2023 14:33:31 Influenza, split virus, trivalent, preservative 8 completed Amy Meczywor null, [place] - [facility] in [facility], 05/06/2023 14:33:31 Influenza, split virus, trivalent, preservative 6 completed Amy Meczywor null, [place] - [facility], 05/06/2023 14:33:31 Influenza, split virus, trivalent, preservative 1 completed Amy Meczywor null, [place] - [facility], 05/06/2023 14:33:31 Influenza, split virus, trivalent, preservative 6 completed Amy Meczywor null, [place] - [facility], 05/06/2023 14:33:31 Influenza, split virus, trivalent, preservative 4 completed Amy Meczywor null, [place] - [facility], 05/06/2023 14:33:31 Td (adult), 5 Lf tetanus toxoid, preservative free, adsorbed 3 completed Amy Meczywor null, [place] - [facility], 05/06/2023 14:33:31 DTaP 3 completed Amy Meczywor null, [place] - [facility], 05/06/2023 14:33:31 Past Encounters Encounter ID Performer Location Encounter Start Date Encounter Closed Date Diagnosis/Indication Diagnosis SNOMED-CT Code Diagnosis ICD10 Code Diagnosis IMO Codes Diagnosis Note [id number] MD BLOSSOM Campbell MD [address] [place] [address],[place] [address] 10/06/2012 10:37:44 10/06/2012 14:36:12 [id number] MD BLOSSOM Campbell MD [address] [place] [address],[place] [address] 10/18/2013 08:02:15 10/18/2013 14:57:26 Specialized medical examination 27020103 Screening for malignant neoplasm of rectum 016279137 Screening mammography 83502271 Menopausal syndrome 739766530 Postmenopa usal bleeding 98381899 [id number] MD BLOSSOM Campbell MD [address] [place] [address],[place] [address] 12/26/2014 08:41:17 12/26/2014 11:10:38 Specialized medical examination 52675150 Screening for malignant neoplasm of rectum 844349112 Screening mammography 90415969 Acute lowe r urinary tract infection 507085033 Menopausal syndrome 735814981 [id number] MD BLOSSOM Campbell MD [address] [place] [address],[place] [address] 01/30/2015 09:21:58 01/30/2015 13:22:11 Acute lower urinary tract infection 267821304 [id number] MD BLOSSOM Campbell MD [address] [place] [address],[place] [address] 03/24/2017 09:19:57 03/24/2017 11:03:42 Specialized medical examination 46485193 Z01.419 Screening for malignant neoplasm of rectum 978842837 Z12.12 Screening mammography 24 169684 Z12.31 Acute lowe r urinary tract infection 588608215 R30.0 [id number] MD BLOSSOM Campbell MD [address] [place] [address],[place] [address] 07/09/2018 12:58:34 07/09/2018 15:16:35 Specialized medical examination 50040579 Z01.419 Screening for malignant neoplasm of rectum 874418906 Z12.12 Screening mammography 24 878175 Z12.31 Dysuria 74469305 R30.0 Acute lowe r urinary tract infection 792540451 R30.0 [id number] MD BLOSSOM Campbell MD [address] [place] [address] 07/24/2018 13:30:27 07/27/2018 07:54:31 Acute lower urinary tract infection 091649783 R30.0 [id number] MD BLOSSOM Campbell MD [address] [facility],[address] [place] [address] 05/06/2023 14:27:26 05/06/2023 15:34:53 Screening for malignant neoplasm of cervix 793349717 Z12.4 Screening mammography 24 972707 Z12.31 Screening for osteoporosis 413175760 N95.8 Rheumatoid arthritis 698 73314 M06.9 Gout 99767215 M10.9 Fibromyalgia 144988506 M 79.7 Health Concerns Section Related Observation LastModified by Organization Detai ls LastModified Time None Recorded Concern Status LastModified by Organization Details LastModified Time None Recorded Advance Directives Directive None Recorded Payers Insurance Date Sequence Insurance Name Policy Number Policy Solo Covered Member ID Solo Member ID Guarantor Name 05/06/2023 2 [place]GRAM - [employer]IC OPTION 104 Flaquita Ish [id number] Flaquita Ish 05/06/2023 1 MEDICARE B[place] [facility] Flaquita Cali Trajayne [id number] 20 Flaquita Ish Notes Date Note Type Note Provider Name and Address Organization Details Recorded Time 01/30/2015 text/html ROS as noted in the HPI Blossom Mejia MD [address] [facility],[address], [place], [address], [place] - [facility], 01/30/2015 13:06:05 03/24/2017 text/html She is here for annual [...] her mid suprapubic area. Blossom Mejia MD [address] [facility],[address], [place], [address], [place] - [facility], 03/24/2017 11:02:09 07/09/2018 text/html She is here for annual exam but also has dysuria and increased nocturia for a few days, she saws Dr. Rosado 3 days ago, was given prednisone and meds for gout. She had unbearable pain to walk on pearl, was diagnosed with gout. Note from [...] for 7 days, check urine culture. Blossom eMjia MD [address], [place], [address], [place] - [facility], 07/09/2018 13:56:12 07/24/2018 text/html she is here for CAREY after UTI treated with macrobid, to which it was sensitive. She feels much improved, the pressure is gone. Blossom Mejia MD [address], [place], [address], [place] - [facility], 07/24/2018 15:55:05 05/06/2023 text/html She is here for annual, has not been here since 2019. She had been advised that we did not take new Medicare patients however she started she had [employer] insurance. When she arrived today she stated [...] very concerned she will not have a service manager doctor to refer her to the surgery department. However once this exam and the breast issues are resolved then she will need to find a service manager doctor who accepts new Medicare. She understands [...] diagnosed with gout. Blossom Mejia MD [address], [place], [address], [facility] - [facility], 05/06/2023 15:15:08 OBGyn Episode No OBEpisode recorded.
--- OUTSIDE RECORDS SUMMARY | 2025-05-31 20:07 | XMS_ITS | Encounter Summary ---
Author Organization [facility] Prior to 04/23/[address] [place] [address] Care Team Providers Care Chief Service Dispatcher Name Role Phone Vincent Polanco MD Primary Care Provider [phone] Reason for Visit * Reason Onset Date Comments APPOINTMENT 2014 re: Bone Desity Encounter Details Date Type Department Care Team Description 2014 Telephone Adult Medicine [address] [address] Vincent Polanco MD [address] [place] [address] APPOINTMENT (re: Bone Desity) Social History Tobacco Use Types Packs/Day Years Used Date Smoking Tobacco: Never Smokeless Tobacco: Never Alcohol Use Standard Drinks/Week Comments Yes 0 (1 standard drink = 0.6 oz pur e alcohol) Wine-social Sex Assigned at Date Recorded Not on file Job Start Date Occupation Industry Not on file Not on file Not on file documented as of this encounter Miscellaneous Notes * Telephone Encounter - Janee Machuca L.P.N. 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 She wants radiology to call her toschedule one. I tried but line was busy. * Telephone Encounter - Diana Flores - 2014 3:57 PM EDT Caller requesting call back from provider: Is the caller the patient? YES If caller is not the patient, what is the callers name? N/A Callers relationship to patient? N/A If person calling is not the patient themselves, is there a verbal release in FYI or permanent comments for this person: NO Reason for call back: Patient is requesting to have a Bone Desity done Caller offered to speak with the nurse for assistance: YES Response: Patient offered to speak with nurse for assistance and patient agreed. Message forwarded to nurse. documented in this encounter Plan of Treatment Not on file documented as of this encounter Visit Diagnoses Not on filedocumented in this encounter Care Teams Chief Service Dispatcher Relationship Specialty Start Date End Date Vincent Polanco MD [address] [place] [address] PCP - General 07/12/02 documented as of this encounter
--- OUTSIDE RECORDS SUMMARY | 2025-05-31 20:07 | XMS_ITS | Encounter Summary ---
Author Organization [facility] Prior to 04/23/[address] [place] [address] Care Team Providers Care Derrick Follower Name Role Phone Vincent Polanco MD Primary Care Provider [phone] Reason for Referral * EXTERNAL (Routine) - Authorized/Booked Specialty Diagnoses / Procedures Referred By Contac t Referred To Contact Rheumatology Procedures REFERRAL TO RHEUMATOLOGY Vincent Polanco MD [address] [place] [address] External Rheumatology Referral ID Status Reason Start Date Expiration Date V isits Requested Visits Authorized [id number] Authorized/B ooked 02/12/2023 05/17/2023 1 1 Encounter Details Date Type Department Care Team Description 02/11/2023 Pt. Non Urgent Medical Question Adult Medicine B - [address] [address] Vincent Polanco MD [address] [place] [address] Social History Tobacco Use Types Packs/Day Years [...] encounter Miscellaneous Notes * Telephone Encounter - Hayley Appiah R.N. - 02/12/2023 7:50 AM EDTFrom: Flaquita Deng To: Wolfgang Polanco Sent: 02/11/2023 9:50 PM EDT Subject: Fibromyalgia Hi Dr. Polanco, I spoke to Dr. Ferguson at [facility] who is covering forDr. Foster. He said they do not treat fibromyalgia at that office. He also said most Rheumatology Departments do not treat fibromyalgia. He ask me to get back to you. You can continue to help me with medication or refer me to a pain ma nagement center that covers fibromyalgia. So far Elavil, Cymbalta and Flexeril was not right for me. You did refer me to Rheumatology at [facility] in [place] but that is way out of the way for me. Let me hear from you as I am still experiencingpain and extremely tired. Thank you so very much. Flaquita Deng documented in this encounter Plan of Treatment Not on file documented as of this encounter Visit Diagnoses Not on filedocumented in this encounter Care Teams Derrick Follower Relationship Specialty Start Date End Date Vincent Polanco MD [address] [place] [address] PCP - General 07/12/02 documented as of this encounter
--- OUTSIDE RECORDS SUMMARY | 2025-05-31 20:07 | XMS_ITS | Encounter Summary ---
Author Organization [facility] Prior to 04/23/2024 Address [address] [place] [address] Care Team Providers Care Machine Woodworking Sander Name Role Phone Vincent Polanco MD Primary Care Provider [phone] Encounter Details Date Type Department Care Team Description 11/26/2019 Pt. Non Urgent Medical Question Rheumatology - [address] [address] Yousif Sandoval MD Social History Tobacco Use Types Packs/Day Years [...] encounter Miscellaneous Notes * Telephone Encounter - Juventino Muniz M.A. - 11/26/2019 11:43 AM EDTFrom: Flaquita Deng To: Yousif Sandoval MD Sent: 11/26/2019 11:23 AM EDT Subject: appointment FridayNovember [address] Sandoval, I need to know if I come out to [facility] to see you on November 30 at 1:30or is this appointment an audio visit? I will get bloodwork done on Friday, November 28. Please let teresa. Thank you. Flaquita Ish documented in this encounter Plan of Treatment Not on file documented as of this encounter Visit Diagnoses Not on filedocumented in this encounter Care Teams Machine Woodworking Sander Relationship Specialty Start Date End Date Vincent Polanco MD [address] [place] [address] PCP - General 07/12/02 documented as of this encounter
--- OUTSIDE RECORDS SUMMARY | 2025-05-31 20:07 | XMS_ITS | Encounter Summary ---
Author Organization [facility] Prior to 04/23/[address] [place] [address] Care Team Providers Care Wood Milling Machine Hand Name Role Phone Vincent Barrios MD Primary Care Provider [phone] Encounter Details Date Type Department Care Team Description 05/28/2019 Pt. Non Urgent Medical Question Adult Medicine [address] [address] Vincent Barrios MD [address] [place] [address] Social History Tobacco Use Types Packs/Day Years Used Date Smoking Tobacco: Never Smokeless Tobacco: Never Alcohol Use Standard Drinks/Week Comments Yes 0 (1 standard drink = 0.6 oz pur e alcohol) Wine-social Sex Assigned at Date Recorded Not on file Job Start Date Occupation Industry Not on file Not on file Not on file documented as of this encounter Progress Notes * Anneliese Huitron M.A. - 05/28/2019 1:30 PM ESTFrom: Flaquita Ish To: Vincent Barrios MD Sent: 05/28/2019 1:25 PM EST Subject: kidney function Hi Dr. BARRIOS, I saw Dr. Avalos today at [facility]. I had more bloodwork taken and the results were basically what you gave me in February. More bloodwork with him next month and back to see him in October. Just wanted to let u know ritu u had referred me to nephology. Dr. AVALOS is the doctor that was with fidelina mathew when I was in the hospital 2 years ago for kidney failure. Flaquita Morrissey documented in this encounter Plan of Treatment Not on file documented as of this encounter Visit Diagnoses Not on filedocumented in this encounter Care Teams Wood Milling Machine Hand Relationship Specialty Start Date End Date Vincent Barrios MD [address] [place] [address] PCP - General 07/12/02 documented as of this encounter
--- OUTSIDE RECORDS SUMMARY | 2025-05-31 20:07 | XMS_ITS | Encounter Summary ---
Author Organization [facility] Prior to 04/23/[address] [place] [address] Care Team Providers Care Grooming Salon Manager Name Role Phone Vincent Polanco MD Primary Care Provider [phone] Encounter Details Date Type Department Care Team Description 04/27/2019 Pt. Non Urgent Medical Question Rheumatology - [address] [address] Yousif Sandoval MD Social History Tobacco Use Types Packs/Day Years Used Date Smoking Tobacco: Never Smokeless Tobacco: Never Alcohol Use Standard Drinks/Week Comments Yes 0 (1 standard drink = 0.6 oz pur e alcohol) Wine-social Sex Assigned at Date Recorded Not on file Job Start Date Occupation Industry Not on file Not on file Not on file documented as of this encounter Plan of Treatment Not on file documented as of this encounter Visit Diagnoses Not on filedocumented in this encounter Care Teams Grooming Salon Manager Relationship Specialty Start Date End Date Vincent Polanco MD [address] [place] [address] PCP - General 07/12/02 documented as of this encounter
--- OUTSIDE RECORDS SUMMARY | 2025-05-31 20:07 | XMS_ITS | Encounter Summary ---
Author Organization [facility] Prior to 04/23/[address] [place] [address] Care Team Providers Care Metal Door Assembler Name Role Phone Vincent Polanco MD Primary Care Provider [phone] Encounter Details Date Type Department Care Team Description 11/21/2017 Work Ticket Distributor Report Medical Records [address] [place] [address] Roderick Dominguez MD [address] [place] [address] Social History Tobacco Use Types Packs/Day Years [...] on filedocumented in this encounter Care Teams Metal Door Assembler Relationship Specialty Start Date End Date Vincent Polanco MD [address] [place] [address] PCP - General 07/12/02 documented as of this encounter
--- OUTSIDE RECORDS SUMMARY | 2025-05-31 20:07 | XMS_ITS | Clinical Summary ---
Author Organization [facility] Prior to 04/23/[address] [place] [address] Care Team Providers Care Boat Oar Maker Name Role Phone Vincent Polanco MD Primary Care Provider [phone] Allergies Active Allergy Reactions Severity Noted Date Comments Prazosin Flushing, feeling of warmth 04/24/20 17 Seasonal 08/20/2011 Medications Medication Sig Dispensed Refills Start Date End Date Status Allergy Injection (ALLERGY MONTHLY INJECTION, HISTORIC) Inject as directed. weekly 0 Active colchicine 0.6 MG tablet Take 0.5 Tablets by mouth daily. 45 Tablet 1 10/08/2022 Active rosuvastatin (CRESTOR) 5 MG tablet Take 1 Tablet by mouth daily for 180 days. 90 Tablet 1 10/22/2023 Active allopurinol (ZYLOPRIM) 300 MG tablet Take 2 Tablets by mouth daily. 0 10/22/2023 Active Tofacitinib Citrate (Xeljanz) 5 MG TabIndications:Seron egative rheumatoid arthritis (HCC) Take 5 mg by mouth daily. 0 10/22/2023 Active omeprazole (PRILOSEC) 40 MG capsule Take 1 Capsule by mouth daily. 90 Capsule 1 10/22/2023 Active Active Problems Problem Noted Date Mixed hyperlipidemia 10/22/2023 Fibromyalgia 10/29/2022 Elevated transaminase level 08/20/2019 Chronic gout due to renal impairment wit hoscott duvallhus 08/18/2018 Gastroesophageal reflux disease without esophagitis 08/18/2018 CKD (chronic kidney disease) stage 3, GF R 30-59 ml/min 06/03/2018 Panic disorder with agoraphobia 08/26/19 Alcohol abuse, in remission 03/03/2017 Generalized anxiety disorder 12/06/2013 Obesity (BMI 30.0-34.9) 12/06/2013 Seronegative rheumatoid arthritis 2009 Overview: RF, CCP negative; Onset fall 2008. Sulfasalazine not helpful due to GI side effects. Enbrel started October 2010. Humira in place of Enbrel November 2011 Humira failing 06/08 - Stopped. Cimzia started 08/10 Change to tofacitinib 5 twice a day October 2017. Fibroid, uterus 04/18/2009 Menopausal and postmenopausal disorder 0 07/21/2008 Diverticulosis of colon (without mention of hemorrhage) 02/17/2006 Esophageal reflux 10/18/2005 Unspecified hearing loss 10/18/2005 Resolved Problems Problem Noted Date Resolved Date Agoraphobia with panic disorder 12/19/2016 07/23/2018 Insomnia, unspecified 09/15/2006 07/23/2018 Anxiety state, unspecified 04/25/200612/06 Overview: Sees regularly Immunizations Name Administration Dates Next Due COVID-19 (Pfizer) 07/17/2023, 2,10/08/2020,09/15 Influenza (> 6 Months) 05/23/2016,2014,05/26/2014,03/04,02/25/2012,04/30/2011,04/04/2010 ,05/02/2009,04/19/2008,04/10/2007,08/2005 Influenza Vaccine-quadrivale nt 4 Years Plus 03/01/2019,05/01/2018,03/18/2017 Influenza vaccine high dose age 65 and over 01/30/2023,04/25/2021,03/20/2020 PPD-RBMG 10/15/2010 Pneumoccoccal(Adult) Polysac charide PPSV23 03/20/2020,08/28/2010 Pneumococcal Conjugate PCV-13 09/12/2014 TD (STATE SUPPLIED FOR ADULT S AND CHILDREN) 10/08/2022 Tdap 09/29/2012 Family History Medical History Relation Name Comments HI Father HI Mother CA Breast Negative Hx Relation Name Status Comments Father Mother Social History Tobacco Use Types Packs/Day Years Used Date Smoking Tobacco: Never Smokeless Tobacco: Never Tobacco Cessation:Counseling Given: Not Answered Alcohol Use Standard Drinks/Week Comments Yes 0 (1 standard drink = 0.6 oz pur e alcohol) Wine-social Sex Assigned at Date Recorded Not on file Job Start Date Occupation Industry Not on file Not on file Not on file Last Filed Vital Signs Vital Sign Reading Time Taken Comments Blood Pressure 152/85 10/22/2023 1:19 PM EDT aut o Pulse 86 10/22/2023 1:19 PM EDT Temperature 36.5 C (97.7 F) 04/16/2022 2:40 PM EDT Respiratory Rate 16 10/29/2022 1:15 PM EDT Oxygen Saturation 98% 04/16/2022 2:40 PM EDT Inhaled Oxygen Concentration - - Weight 107.5 kg (236 lb 14.4 oz) 10/22/2023 1:19 PM EDT Height 170.2 cm (5' 7 ) 10/22/2023 1:19 PM EDT Body Mass Index 37.1 10/22/2023 1:19 PM EDT Plan of Treatment Health Maintenance Due Date Last Done Comments DEPRESSION SCREEN 1966 SHINGLES VACCINE (1 of 2) 2004 COLON CANCER SCREENING 10/08/2017 8, 02/17/2006, 02/17/2006, Additional history exists BONE DENSITY SCREENING 12/28/2019 FALL RISK ASSESSMENT 12/28/2019 MAMMOGRAM 05/22/2024 05/22/2023, 03/25, 04/11/2023, Additional history exists BMI CHECK/ADVISE 06/23/2024 10/22/2023, , 10/08/2022, Additional history exists Covid-19 Vaccine (2022-07 4 season) 2025 07/17/2023, 09/27/2021, 04/12/2021, Additional history exists INFLUENZA (#1) 2025 01/30/2023, 08/2020, 03/20/2020, Additional history exists CHOLESTEROL SCREENING 10/05/2028 10/06/2023 , 10/08/2022, 04/29/2022, Additional history exists DTAP/TDAP/TD (4 - Td or Tdap) 10/08/2032, 09/29/2012, 06/23/2012 HEPATITIS C SCREENING Completed 06/18/2017, 010 PNEUMOCOCCAL VACCINE Completed 03/20/2020, 09/12/2014, 08/28/2010 Insurance Payer Benefit Plan / Group Subscriber ID Effective Dates Phone Address Type WORKERS COMP WORKERS COMPENSATION /[place] [id number] 2013-Pres ent [address] [place] [address] OTHER [place]IC[place] [id number] 2019-Prese nt [address] [place] [address] MEDICARE [id number] ICE [place]/PPO POS PPO $25 [place] [id number] 2018-Pres ent [address] [place] [address] PPO [id number] [place] MCR MCR F 1+/50% [id number] 2019-Prese nt [address] [place] [address] MEDICARE [id number] [place]/PPO POS FEP BASIC $20/$[id number] 2002-Pres ent [address] [place] [address] PPO [id number] [place]/PPO POS FED BCBS PPO F 1+/$25 [id number] 2019-Prese nt [address] [place] [address] PPO [id number] Care Teams Boat Oar Maker Relationship Specialty Start Date End Date Vincent Polanco MD [address] [place] [address] PCP - General 07/12/02
--- OUTSIDE RECORDS SUMMARY | 2025-05-31 20:07 | XMS_ITS | Encounter Summary ---
Author Organization [facility] Prior to 04/23/2024 Address [address] [place] [address] Care Team Providers Care Yard Associate Name Role Phone Vincent Polanco MD Primary Care Provider [phone] Encounter Details Date Type Department Care Team Description 09/02/2022 Pt. Non Urgent Medical Question Adult Medicine B - [address] [address] Vincent Polanco MD [address] [place] [address] Social History Tobacco Use Types Packs/Day Years [...] encounter Miscellaneous Notes * Telephone Encounter - Amy Reyna M.A. - 09/02/2022 7:55 AM EDTFrom: Flaquita Deng To: Wolfgang Polanco Sent: 09/02/2022 12:35 AM EDT Subject: Hydrocodone Hi Dr. Polanco, can you refill my prescription for hydrocodone? I don't see you until October 08 and I still am in pain. Let me know. Thank you. Flaquita Deng documented in this encounter Plan of Treatment Not on file documented as of this encounter Visit Diagnoses Not on filedocumented in this encounter Care Teams Yard Associate Relationship Specialty Start Date End Date Vincent Polanco MD [address] [place] [address] PCP - General 07/12/02 documented as of this encounter
--- OUTSIDE RECORDS SUMMARY | 2025-05-31 20:07 | XMS_ITS | Encounter Summary ---
Author Organization [facility] [employer] [facility] Prior to 04/23/[address] [place] [address] Care Team Providers Care Media Center Director School Name Role Phone Vincent Polanco MD Primary Care Provider [phone] Encounter Details Date Type Department Care Team Description 04/28/2017 [facility] Medical Records [address] [place] [address] Abstract, Provider Social History Tobacco Use Types Packs/Day Years [...] on filedocumented in this encounter Care Teams Media Center Director School Relationship Specialty Start Date End Date Vincent Polanco MD [address] [place] [address] PCP - General 07/12/02 documented as of this encounter
--- OUTSIDE RECORDS SUMMARY | 2025-05-31 20:07 | XMS_ITS | Encounter Summary ---
Author Organization [facility] [employer] [facility] Prior to 04/23/[address] [place] [address] Care Team Providers Care Factory Engineer Name Role Phone Vincent Polanco MD Primary Care Provider [phone] Encounter Details Date Type Department Care Team Description 10/16/2021 Orders Only Medical Records [address] [place] [address] Vincent Polanco MD [address] [place] [phone] Social History Tobacco Use Types Packs/Day Years [...] on file documented as of this encounter Procedures Procedure Name Priority Date/Time Associated Diagnosis Comments OUTSIDE MAMMO Routine 10/16/2021 documented in this encounter Results * OUTSIDE MAMMO (10/16/2021) Vincent Polanco MD RADIOLOGY documented in this encounter Visit Diagnoses Not on filedocumented in this encounter Care Teams Factory Engineer Relationship Specialty Start Date End Date Vincent Polanco MD [address] [place] [address] [id number] PCP - General 07/12/02 documented as of this encounter
--- OUTSIDE RECORDS SUMMARY | 2025-05-31 20:07 | XMS_ITS | Encounter Summary ---
Author Organization [facility] [employer] [facility] Prior to 04/23/[address] [place] [address] Care Team Providers Care Slotter Operator Name Role Phone Vincent Polanco MD Primary Care Provider [phone] Encounter Details Date Type Department Care Team Description 04/23/2023 Transfer Driver Report Medical Records [address] [place] [address] Flavio Foster MD Social History Tobacco Use Types Packs/Day [...] on filedocumented in this encounter Care Teams Slotter Operator Relationship Specialty Start Date End Date Vincent Polanco MD [address] [place] [address] PCP - General 07/12/02 documented as of this encounter
--- OUTSIDE RECORDS SUMMARY | 2025-05-31 20:07 | XMS_ITS | Encounter Summary ---
Author Organization [facility] [facility] Prior to 04/23/[address] [place] [address] Care Team Providers Care Sack Sorter Name Role Phone Vincent Polanco MD Primary Care Provider [phone] Encounter Details Date Type Department Care Team Description 12/29/2019 Hospital Medical Records [address] [place] [address] Wilbert Wagner Social History Tobacco Use Types Packs/Day Years [...] on filedocumented in this encounter Care Teams Sack Sorter Relationship Specialty Start Date End Date Vincent Polanco MD [address] [place] [address] PCP - General 07/12/02 documented as of this encounter
--- OUTSIDE RECORDS SUMMARY | 2025-05-31 20:07 | XMS_ITS | Encounter Summary ---
Author Organization [facility] Prior to 04/23/[address] [place] [address] Care Team Providers Care Drift Miner Name Role Phone Vincent Polanco MD Primary Care Provider [phone] Encounter Details Date Type Department Care Team Description 03/03/2020 Pt. Non Urgent Medical Question Rheumatology - [address] [address] Yousif Sandoval MD Social History Tobacco Use Types Packs/Day Years Used Date Smoking Tobacco: Never Smokeless Tobacco: Never Alcohol Use Standard Drinks/Week Comments Yes 0 (1 standard drink = 0.6 oz pur e alcohol) Wine-social Sex Assigned at Date Recorded Not on file Job Start Date Occupation Industry Not on file Not on file Not on file COVID-19 Exposure Response Date Recorded In the last month, have you been in contact with someone who was confirmed or suspected to have Coronavirus / COVID-19? No / Unsure 03/04/2020 3:04 PM EDT documented as of this encounter Plan of Treatment Not on file documented as of this encounter Visit Diagnoses Not on filedocumented in this encounter Care Teams Drift Miner Relationship Specialty Start Date End Date Vincent Polanco MD [address] [place] [address] PCP - General 07/12/02 documented as of this encounter
--- OUTSIDE RECORDS SUMMARY | 2025-05-31 20:07 | XMS_ITS | Encounter Summary ---
Author Organization [facility] [employer] [facility] Prior to 04/23/[address] [place] [address] Care Team Providers Care Applications Developer Name Role Phone Vincent Polanco MD Primary Care Provider [phone] Encounter Details Date Type Department Care Team Description 10/13/2023 Hand Molder Meat Report Medical Records [address] [place] [address] Flavio Foster MD Social History Tobacco Use [...] on filedocumented in this encounter Care Teams Applications Developer Relationship Specialty Start Date End Date Vincent Polanco MD [address] [place] [address] PCP - General 07/12/02 documented as of this encounter
--- OUTSIDE RECORDS SUMMARY | 2025-05-31 20:07 | XMS_ITS | Encounter Summary ---
Author Organization [facility] [employer] [facility] Prior to 04/23/[address] [place] [address] Care Team Providers Care Enginehouse Brakeman Name Role Phone Vincent Polanco MD Primary Care Provider [phone] Encounter Details Date Type Department Care Team Description 04/14/2023 Orders Only Medical Records [address] [place] [address] Blossom Mejia MD Social History Tobacco Use Types Packs/Day [...] Date/Time Associated Diagnosis Comments OUTSIDE MAMMO Routine 04/11/2023 documented in this encounter Results * OUTSIDE MAMMO (04/11/2023) Blossom Mejia MD RADIOLOGY documented in this encounter Visit Diagnoses Not on filedocumented in this encounter Care Teams Enginehouse Brakeman Relationship Specialty Start Date End Date Vincent Polanco MD [address] [place] [address] PCP - General 07/12/02 documented as of this encounter
--- OUTSIDE RECORDS SUMMARY | 2025-05-31 20:07 | XMS_ITS | Encounter Summary ---
Author Organization [facility] [employer] [facility] Prior to 04/23/[address] [place] [address] Care Team Providers Care Vice President Name Role Phone Vincent Polanco MD Primary Care Provider [phone] Encounter Details Date Type Department Care Team Description 01/02/2015 ORGANIZATIONAL CONSULTANT/MassPat Report Medical Records [address] [place] [address] Abstract, Provider Social History Tobacco Use Types [...] on filedocumented in this encounter Care Teams Vice President Relationship Specialty Start Date End Date Vincent Polanco MD [address] [place] [address] PCP - General 07/12/02 documented as of this encounter
--- OUTSIDE RECORDS SUMMARY | 2025-05-31 20:07 | XMS_ITS | Encounter Summary ---
Author Organization [facility] [employer] [facility] Prior to 04/23/[address] [place] [address] Care Team Providers Care Harvest Field Ticketer Name Role Phone Vincent Polanco MD Primary Care Provider [phone] Encounter Details Date Type Department Care Team Description 02/14/2017 Hospital Medical Records [address] [place] [address] Ana Sierra Social History Tobacco Use Types Packs/Day Years [...] on filedocumented in this encounter Care Teams Harvest Field Ticketer Relationship Specialty Start Date End Date Vincent Polanco MD [address] [place] [address] PCP - General 07/12/02 documented as of this encounter
--- OUTSIDE RECORDS SUMMARY | 2025-05-31 20:07 | XMS_ITS | Encounter Summary ---
Author Organization [facility] [facility] Prior to 04/23/[address] [place] [address] Care Team Providers Care Lead Installer Name Role Phone Vincent Polanco MD Primary Care Provider [phone] Encounter Details Date Type Department Care Team Description 07/25/2017 Shed Boss Report Medical Records [address] [place] [address] Roderick Dominguez MD [address] [place] [address] Social History Tobacco Use Types Packs/Day Years [...] on filedocumented in this encounter Care Teams Lead Installer Relationship Specialty Start Date End Date Vincent Polanco MD [address] [place] [address] PCP - General 07/12/02 documented as of this encounter
--- OUTSIDE RECORDS SUMMARY | 2025-05-31 20:07 | XMS_ITS | Encounter Summary ---
Author Organization [facility] [employer] [facility] Prior to 04/23/[address] [place] [address] Care Team Providers Care Battery Container Finishing Hand Name Role Phone Vincent Polanco MD Primary Care Provider [phone] Encounter Details Date Type Department Care Team Description 04/22/2023 Orders Only Medical Records [address] [place] [address] Blossom Mejia MD Social History Tobacco Use [...] Date/Time Associated Diagnosis Comments OUTSIDE MAMMO Routine 04/22/2023 documented in this encounter Results * OUTSIDE MAMMO (04/22/2023) Blossom Mejia MD RADIOLOGY documented in this encounter Visit Diagnoses Not on filedocumented in this encounter Care Teams Battery Container Finishing Hand Relationship Specialty Start Date End Date Vincent Polanco MD [address] [place] [address] PCP - General 07/12/02 documented as of this encounter
--- OUTSIDE RECORDS SUMMARY | 2025-05-31 20:07 | XMS_ITS | Encounter Summary ---
Author Organization [facility] Prior to 04/23/[address] [place] [address] Care Team Providers Care Naturopathic Doctor Name Role Phone Vincent Polanco MD Primary Care Provider [phone] Encounter Details Date Type Department Care Team Description 07/15/2022 Candy Depositing Machine Operator Report Medical Records [address] [place] [address] Flavio Foster MD Social History Tobacco Use [...] on filedocumented in this encounter Care Teams Naturopathic Doctor Relationship Specialty Start Date End Date Vincent Polanco MD [address] [place] [address] PCP - General 07/12/02 documented as of this encounter
--- OUTSIDE RECORDS SUMMARY | 2025-05-31 20:07 | XMS_ITS | Clinical Summary ---
Author Organization [facility] [facility] Address [address] [place] [address] Care Team Providers Care Sales And Catering Coordinator Name Role Phone Vincent Polanco MD Primary Care Provider [phone] Surgical History Surgery Date Site/Laterality Comments OTHER SURGICAL HISTORY 10/26 PROCEDURE: UT DILATION & CURETTAGE DX&/THER NONOBSTETRIC; COMMENT: 2.5 cm benign polyp removed SHOULDER SURGERY 04/27 PROCEDURE: UT UNLISTED PROCEDURE SHOULDER; COMMENT: bone spur and dog bite repair ESOPHAGOGASTRODUODENOSCOPY 10/09/07 PROCEDURE: UT EGD TRANSORAL BIOPSY SINGLE/MULTIPLE; COMMENT: Small hiatal hernia, gastric polyp removed:normal mucosa, gastric bx:reactive gastropathy COLONOSCOPY 10/09/07 PROCEDURE: HISTORICAL COLONOSCOPY; COMMENT: Up to cecum, good preparation, normal ROTATOR CUFF REPAIR ?2002 PROCEDURE: HISTORICAL ROTATOR CUFF REPAIR; COMMENT: right - ? just decompressive surgey OTHER SURGICAL HISTORY 12/2019 Right PROCEDURE: UT UNLISTED PROCEDURE MIDDLE EAR; COMMENT: myringotomy and tube Medical History Medical History Date Comments Unspecified hearing loss 10/18/2005 DX:Unsp ecified hearing loss Irregular menstrual cycle 11-23-04 DX:Irr egular menstrual cycle; COMMENT: EMB=tissue normal Insomnia, unspecified 09/15/2006 DX:Insomni a, unspecified Anxiety state, unspecified 2005 DX:An xiety state, unspecified Other abnormal Papanicolaou smear of cervix and cervical HPV(795.09) 10-26-04 DX:Other abnormal Papa nicolaou smear of cervix [...] Health Maintenance Due Date Last Done Comments Colorectal Cancer Screening: Colonoscopy 1955 Hepatitis A Vaccines (1 of 2 - Risk 2-dose series) 1973 Zoster Vaccines (1 of 2) 2004 Cholesterol Screening (Lipid Panel) 05/21/2022 Falls Risk Assessment 05/21/2022 Hepatitis C Screening 05/21/2022 Medicare Annual Wellness Visit 05/21/2022 Osteoporosis Screening (Bone Density Screening) 05/21/2022 Social Influencers of Health Screening 05/21/2022 Depression Screening 06/23/2024 COVID-19 Vaccine ( season) 2025 07/17/2023, 09/27/2021, 10/08/2020, Additional history exists Influenza Vaccine (#1) 2025 3, 05/29/2022, 04/25/2021, Additional history exists Breast Cancer Screening 04/11/2025 04/11/20 23, 10/16/2021, 10/11/2020, Additional history exists RSV Immunization Adult Patients (1 - 1-dose 75+ series) 2029 DTaP,Tdap,and [...] age to complete this topic Meningococcal B Vaccine Aged Out No l onger eligible based on patient's age to complete this topic RSV Immunization Patients Under 20 months Aged Out No longer eligible based on patient's age to complete this topic Varicella Vaccines Aged Out No longer eligible based on patient's age to complete this topic Procedures Procedure Name Priority Date/Time Associated Diagnosis Comments EXTERNAL CLINICAL LAB 05/27/2025 [facility] SCREENING DIGITAL Routine 04/11/2023 5:06 PM EDT Encounter for screening mammogram for malignant neoplasm of breast from Last 3 Months or Most Recently Relevant to Health Maintenance Results * External clinical lab (05/27/2025) Provider [facility] BLOOD ORDERABLES Fin al Result * [facility] SCREENING DIGITAL (04/11/2023 5:06 PM EDT) Anatomical Region Laterality Modality Mammography 04/11/2023 2:09 PM EDT Narrative 04/11/2023 5:06 PM EDT [facility] Diagnostic Imaging Department [address] [place] [address] Patient: STONE MAO.B./Age/Sex: 1955 - 67 - F Unit#: [id number] Location/Status: SPDIMAM/REG CLI Mnemonic/Ordering Site: [facility] Ordering Physician: BLOSSOM ABRAMS MD [facility] Screening Digital - 04/11/23 - [id number] Report Status:Signed EXAM: [facility] Screening Digital EXAM DATE AND TIME: 04/11/2023 2:37 PM HISTORY: Screening. COMPARISON: 10/16/21, 10/17/20, 10/11/20, 05/31/19 TECHNIQUE: Bilateral digital breast tomosynthesis was performed in the CC and MLO projections. Computer aided detection with [employer] 3D 3.1 was employed. TISSUE DENSITY: b. [...] MD Dic Date/Time: 04/11/231703 Sign date/Time: 04/11/231705 Procedure Note Reid George MD - 07/29/2023 [facility] Diagnostic Imaging Department [address] [place] [address] Patient: STONE MA /Age/Sex: 1955 - 67 - F Unit#: [id number] Location/Status: SPDIMAM/REG CLI Mnemonic/Ordering Site: [facility] Ordering Physician: BLOSSOM ABRAMS MD [facility] Screening Digital - 04/11/23 - [id number] Report Status:Signed EXAM: [facility] Screening Digital EXAM DATE AND TIME: 04/11/2023 2:37 PM HISTORY: Screening. COMPARISON: 10/16/21, 10/17/20, 10/11/20, 05/31/19 TECHNIQUE: Bilateral digital breast tomosynthesis was performed in the CCand MLO projections. Computer aided detection with [employer] 3D 3.1was employed. TISSUE DENSITY: b. There [...] Recently Relevant to Health Maintenance Care Teams Sales And Catering Coordinator Relationship Specialty Start Date End Date Vincent Polanco MD [address] [place] [address] PCP - General Internal Medicine 02/22/25
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
--- OUTSIDE RECORDS SUMMARY | 2025-05-31 20:07 | XMS_ITS | Encounter Summary ---
Author Organization [facility] Prior to 04/23/[address] [place] [address] Care Team Providers Care Patient Service Coordinator Name Role Phone Vincent Polanco MD Primary Care Provider [phone] Reason for Visit * Reason Onset Date Comments APPOINTMENT 09/14/2019 Encounter Details Date Type Department Care Team Description 09/14/2019 Telephone Adult Medicine [address] [address] Vincent Polanco MD [address] [place] [address] APPOINTMENT Social History Tobacco Use Types Packs/Day Years [...] encounter Miscellaneous Notes * Telephone Encounter - Nancy Barone M.A. - 09/14/2019 10:53 AM EDT Pt miss appt 09/06/2019 for physical please reschedule documented in this encounter Plan of Treatment Not on file documented as of this encounter Visit Diagnoses Not on filedocumented in this encounter Care Teams Patient Service Coordinator Relationship Specialty Start Date End Date Vincent Polanco MD [address] [place] [address] PCP - General 07/12/02 documented as of this encounter
--- OUTSIDE RECORDS SUMMARY | 2025-05-31 20:07 | XMS_ITS | Encounter Summary ---
Author Organization [facility] Prior to 04/23/[address] [place] [address] Care Team Providers Care Director Career Services Name Role Phone Vincent Polanco MD Primary Care Provider [phone] Reason for Referral * INTERNAL (Priority) - Authorized/Booked Specialty Diagnoses / Procedures Referred By Contgenny t Referred To Contact UROGYNECOLOGY / Urogynecology Procedures REFERRAL TO UROGYNECOLOGY Layla Serna NP [address] [place] [address] Tova Hernandez MD [address] [place] [address] [place] [address] Referral ID Status Reason Start Date Expiration Date V isits Requested Visits Authorized [id number] Authorized/B ooked 10/23/2023 10/22/2024 1 1 Encounter Details Date Type Department Care Team Description 10/22/2023 Pt. Non Urgent Medical Question Adult Medicine [facility] [address] [place] [address] Layla Serna NP [address] [place] [address] Urinary urgency (Primary Dx) Social History Tobacco Use Types Packs/Day Years [...] encounter Miscellaneous Notes * Telephone Encounter - Jossy Ramesh M.A. - 10/23/2023 8:57 AM EDTFrom: Flaquita Deng To: T Screws Sent: 10/22/2023 11:49 PM EDT Subject: Question regarding URINALYSIS Hi Layla, I don't understand what that means in red with high number of leukocytes. Also, at this time, I do not have a transportation assistant. Last March, Dr. James said she would no longer be my transportation assistant. If you could ask Dr. Polanco, who he would recommend for a new transportation assistant, I would appreciate it very much. Th kathy you. Flaquita Deng documented in this encounter Plan of Treatment Not on file documented as of this encounter Results * (ABNORMAL) CHG URNLS DIP STICK/TABLET REAGENT AUTO MICROSCOPY (10/31/2023 3:17 PM EDT) GLUCOSE, URINE (UA) NEGATIVE NEGATIVE mg/dL 10/31/2023 6:25 PM EDT [facility] BILIRUBIN URINE NEGATIVE NEGATIVE 10/31/2023 6:25 PM EDT [facility] KETONE, URINE TRACE(A) NEGATIVE mg/dL 10/31/2023 6:25 PM EDT [facility] SPECIFIC GRAVITY, URINE 1.023 1.003 - 1.030 10/31/2023 6:25 PM EDT [facility] BLOOD, URINE NEGATIVE NEGATIVE 10/31/2023 6:25 PM EDT [facility] PH, URINE 5.0 5.0 - 8.0 10/31/2023 6:25 PM EDT [facility] PROTEIN, URINE TRACE <= TRACE mg/dl 10/31/2023 6:25 PM EDT [facility] UROBILINOGEN, URINE 0.2 0.2 - 1.0 E.U./dL 10/31/2023 6:25 PM EDT [facility] NITRITE,URINE NEGATIVE NEGATIVE 10/31/2023 6:25 PM EDT [facility] LE[facility]ER[facility], URINE TRACE(A) NEGATIVE 10/31/2023 6:25 PM EDT [facility] RBC-Urine 3 0 - 4 /HPF 10/31/2023 6:29 PM EDT [facility] WBC-Urine 3 0 - 4 /HPF 10/31/2023 6:29 PM EDT [facility] EPITH CELLS, URINE 111(H) 0 - 60 /LPF 10/31/2023 6:29 PM EDT [facility] BACTERIA, URINE NEGATIVE NEGATIVE 10/31/2023 6:29 PM EDT [facility] HYALINE CAST, URINE 1 0 - 3 /LPF 10/31/2023 6:29 PM EDT [facility] 10/31/2023 3:17 PM EDT 10/31/2023 3:17 PM EDT Narrative [facility] - 10/31/2023 6:29 PM EDT Release to patient->Immediate Layla Serna NP [facility] * URINE, CULTURE (10/31/2023 3:17 PM EDT) Urine (Urine) 10/31/2023 3:1 7 PM EDT 10/31/2023 3:17 PM EDT Narrative [facility] - 11/01/2023 1:32 PM EDT Release to patient->Immediate <10,000 CFU/mL GRAM POSITIVE COCCI AND GRAM NEGATIVE BACILLI Layla Serna NP [facility] documented in this encounter Visit Diagnoses Diagnosis Urinary urgency- Primary Urgency of urination documented in this encounter Care Teams Director Career Services Relationship Specialty Start Date End Date Vincent Polanco MD [address] [place] [address] PCP - General 07/12/02 documented as of this encounter
--- OUTSIDE RECORDS SUMMARY | 2025-05-31 20:07 | XMS_ITS | Encounter Summary ---
Author Organization [facility] [employer] [facility] Prior to 04/23/[address] [place] [address] Care Team Providers Care Pediatric Assistant Name Role Phone Vincent Polanco MD Primary Care Provider [phone] Encounter Details Date Type Department Care Team Description 06/02/2023 Applications Project Manager Report Medical Records [address] [place] [address] Nicole Sanchez Social History Tobacco Use Types Packs/Day Years [...] on filedocumented in this encounter Care Teams Pediatric Assistant Relationship Specialty Start Date End Date Vincent Polanco MD [address] [place] [address] PCP - General 07/12/02 documented as of this encounter
--- OUTSIDE RECORDS SUMMARY | 2025-05-31 20:07 | XMS_ITS | Encounter Summary ---
Author Organization [facility] Prior to 04/23/2024 Address [address] [place] [address] Care Team Providers Care Overnight Caregiver Name Role Phone Vincent Barrios MD Primary Care Provider [phone] Encounter Details Date Type Department Care Team Description 07/18/2021 Pt. Non Urgent Medical Question Adult Medicine B - [address] [address] Vincent Barrios MD [address] [place] [address] Social History Tobacco Use Types Packs/Day Years [...] Telephone Encounter - Amy Reyna M.A. - 07/18/2021 1:56 PM ESTFrom: Flaquita Deng To: Wolfgang Barrios Sent: 07/18/2021 1:55 PM EST Subject: Medication, pharmacy Hi Dr. BARRIOS, I am having a problem with [facility] processing my Lorazepam. Dr. Pérez put in a 6 months supply before she left and they are not processing it. [facility] [place] [phone] Can you check into this for me because I have no way of reaching Dr. Pérez. Thank you so very much. Flaquita Deng documented in this encounter Plan of Treatment Not on file documented as of this encounter Visit Diagnoses Not on filedocumented in this encounter Care Teams Overnight Caregiver Relationship Specialty Start Date End Date Vincent Barrios MD [address] [place] [address] PCP - General 07/12/02 documented as of this encounter
--- OUTSIDE RECORDS SUMMARY | 2025-05-31 20:07 | XMS_ITS | Encounter Summary ---
Author Organization [facility] Prior to 04/23/[address] [place] [address] Care Team Providers Care Weather Reporter Name Role Phone Vincent Polanco MD Primary Care Provider [phone] Encounter Details Date Type Department Care Team Description 11/19/2005 Hospital Medical Records [address] [place] [address] Blossom Mejia MD Social History Tobacco Use [...] on filedocumented in this encounter Care Teams Weather Reporter Relationship Specialty Start Date End Date Vincent Polanco MD [address] [place] [address] PCP - General 07/12/02 documented as of this encounter
--- OUTSIDE RECORDS SUMMARY | 2025-05-31 20:07 | XMS_ITS | Encounter Summary ---
Author Organization [facility] Prior to 04/23/[address] [place] [address] Care Team Providers Care Life Specialist Name Role Phone Vincent Polanco MD Primary Care Provider [phone] Encounter Details Date Type Department Care Team Description 08/20/2019 Pt. Non Urgent Medical Question Rheumatology - [address] [address] Yousif Sandoval MD Social History Tobacco Use [...] on filedocumented in this encounter Care Teams Life Specialist Relationship Specialty Start Date End Date Vincent Polanco MD [address] [place] [address] PCP - General 07/12/02 documented as of this encounter
--- OUTSIDE RECORDS SUMMARY | 2025-05-31 20:08 | XMS_ITS | Encounter Summary ---
Author Organization [facility] [employer] [facility] Prior to 04/23/[address] [place] [address] Care Team Providers Care Shoemaking Cutter Name Role Phone Vincent Polanco MD Primary Care Provider [phone] Encounter Details Date Type Department Care Team Description 02/05/2013 Release of Information Medical Records [address] [place] [address] Abstract, Provider Social History Tobacco Use Types Packs/Day Years Used Date Smoking Tobacco: Never Smokeless Tobacco: Never Alcohol Use Standard Drinks/Week Comments Yes 0 (1 standard drink = 0.6 oz pur e alcohol) Wine-social Sex Assigned at Date Recorded Not on file Job Start Date Occupation Industry Not on file Not on file Not on file documented as of this encounter Nursing Notes * 02/05/2013 12:00 PM EDT >> KIRSTEN Shi Feb 05, 2013 3:31 PM Pt signed ALISHA to mail copy of office note from of 02/05/13 to [facility] [address] [place]. [address], also wanted [facility] but we do not have,mailed request documented in this encounter Plan of Treatment Not on file documented as of this encounter Visit Diagnoses Not on filedocumented in this encounter Care Teams Shoemaking Cutter Relationship Specialty Start Date End Date Vincent Polanco MD [address] [place] [address] PCP - General 07/12/02 documented as of this encounter
--- OUTSIDE RECORDS SUMMARY | 2025-05-31 20:08 | XMS_ITS | Encounter Summary ---
Author Organization [facility] [employer] [facility] Prior to 04/23/[address] [place] [address] Care Team Providers Care Croze Cutter Name Role Phone Vincent Polanco MD Primary Care Provider [phone] Encounter Details Date Type Department Care Team Description 02/14/2017 Hospital Medical Records [address] [place] [address] Ana Sierra Social History Tobacco Use Types [...] on filedocumented in this encounter Care Teams Croze Cutter Relationship Specialty Start Date End Date Vincent Polanco MD [address] [place] [address] PCP - General 07/12/02 documented as of this encounter
--- OUTSIDE RECORDS SUMMARY | 2025-05-31 20:08 | XMS_ITS | Encounter Summary ---
Author Organization [facility] Prior to 04/23/[address] [place] [address] Care Team Providers Care Truck Headlight Assembler Name Role Phone Vincent Polanco MD Primary Care Provider [phone] Encounter Details Date Type Department Care Team Description 06/01/2013 Certified Orthotist/Pedorthist Report Medical Records [address] [place] [address] Social History Tobacco Use Types Packs/Day Years [...] on filedocumented in this encounter Care Teams Truck Headlight Assembler Relationship Specialty Start Date End Date Vincent Polanco MD [address] [place] [address] PCP - General 07/12/02 documented as of this encounter
--- OUTSIDE RECORDS SUMMARY | 2025-05-31 20:08 | XMS_ITS | Encounter Summary ---
Author Organization [facility] [employer] [facility] Prior to 04/23/[address] [place] [address] Care Team Providers Care Mill Tender Second Operator Name Role Phone Vincent Polanco MD Primary Care Provider [phone] Encounter Details Date Type Department Care Team Description 02/19/2016 [facility] Medical Records [address] [place] [address] Abstract, Provider Social History Tobacco Use Types [...] on filedocumented in this encounter Care Teams Mill Tender Second Operator Relationship Specialty Start Date End Date Vincent Polanco MD [address] [place] [address] PCP - General 07/12/02 documented as of this encounter
--- OUTSIDE RECORDS SUMMARY | 2025-05-31 20:08 | XMS_ITS | Data Portability ---
Author Organization ID - [facility] Address [address] [place] [address] Care Team Providers Care Restaurant Line Cook Name Role Phone PETAR BARRIOS Primary Care Provider Assessment No assessment recorded. Plan of Treatment Reminders Order Date Submit Date Provider Last Modified By Organization Details Last Modified Time Details Appointments None recorded. Lab None recorded. Referral None recorded. Procedures None recorded. Surgeries None recorded. Imaging None recorded. Medication Orders fluticasone propionate 50 mcg/actuati on nasal spray,suspe nsion 2023 024 [facility] #[id number], [address] [place], [address], 4 13:28:30 cetirizine 10 mg tablet 2023 024 [facility] #[id number], [address] [place], [address], 4 13:28:31 Patient TargetsNo targets recorded. Patient InstructionsNo instructions recorded. Reason for Referral None Reported. Results Created Date Observation Date Name Description Value Unit Range Abnormal Flag Note LastModifiedBy Organization Detail LastModifiedTime 02/11/20 24 09/09/2022 imagi ng/di agnos tic resul t No observ ation record ed. [email or web address] Not Available 17:56:42 02/11/20 24 06/02/2023 imagi ng/di agnos tic resul t No observ ation record ed. [email or web address] Not Available 17:56:53 02/11/20 24 06/02/2023 audio gram No observ ation record ed. [email or web address] Not Available 17:57:04 Result Notes None recorded. Problems Name Problem SNOMED Code Status Onset Date Resolution Date Notes Provider Name and Address Organization Details Recorded Time Chronic serous otitis media of right ear 230453449 Active 2022 Chronic serous otitis media, right ear; Note: Date Diagnosed : 3 12:33 PM (H65.21) Not Available [facility] 4 03:19:55 Sensorine ural hearing loss in left ear 86847636161 109 Active 2022 Sensorine ural hearing loss, unilatera l, left ear, with restricte d hearing on the contralat eral side; Note: Date Diagnosed : 3 11:17 AM (H90.A22) Not Available [facility] 4 03:19:54 Sensorine ural hearing loss of bilateral ears 994985978 Active 2022 Sensorine ural hearing loss, bilateral ; Note: Date Diagnosed : 3 10:51 AM (H90.3) Not Available [facility] 4 03:19:54 Disorder of right Eustachia n tube 59433438969 [address] Active 2022 Other specified disorders of Eustachia n tube, right ear; Note: Date Diagnosed : 3 10:51 AM (H69.81) Not Available [facility] 4 03:19:55 Mixed conductiv e and sensorine ural hearing loss of right ear 44969510413 105 Active 2022 Mixed conductiv e and sensorine ural hearing loss, unilatera l, right ear with restricte d hearing on the contralat eral side; Note: Date Diagnosed : 3 10:51 AM (H90.A31) Not Available [facility] 4 03:19:55 Disorder of nasal sinus 1450872 Active 2022 Unspecifi ed disorder of nose and nasal sinuses; Note: Date Diagnosed : 3 1:17 AM (J34.9) Not Available [facility] 4 03:19:54 Disorder of the nose 03406598 Active 2022 Unspecifi ed disorder of nose and nasal sinuses; Note: Date Diagnosed : 3 1:17 AM (J34.9) Not Available [facility] 4 03:19:54 Allergic rhinitis 45423724 Active 2023 DOUG BARAJAS MD [address] [place] [address], [facility] [place], [address] , [facility] - [facility] 4 13:27:40 Problem Notes None recorded. Medical Equipment None Reported. [...] capsule,d elayed release active Medicati on ID: [id number] B rand Name: omeprazo le Send Method: E-Prescr ibed Sub s Allowed: subs OK Medic ationGen ericName : omeprazo le Not Available Not Available Not Available ofloxacin 0.3 % ear drops INSTILL 5 DROP IN AFFECTED EARS(S) TWICE A DAY DIRECTED active Not Available Not Available No t Available allopurin ol 300 mg tablet active Medicati on ID: [id number] B rand Name: allopuri nol Send Method: E-Prescr ibed Sub s Allowed: subs OK Medic ationGen ericName : allopuri nol Not Available Not Available Not Available ergocalci ferol (vitamin D2) 1,250 mcg (50,000 unit) capsule TAKE 1 CAPSULE (50,000 UNITS TOTAL) BY MOUTH ONCE WEEKLY active Not Available Not Available No t Available colchicin e 0.6 mg tablet active Medicati on ID: [id number] B rand Name: colchici ne Send Method: E-Prescr ibed Sub s Allowed: subs OK Medic ationGen ericName : morris ne Not Available Not Available Not Available fluticaso ne propionat e 50 mcg/actua tion nasal spray,[place] [place] 2 sprays every day by intranas al [...] Updated DateTime 02/13/2024 170.18 cm 36 kg/m2 911011.25 g Heather Villalta [place] - [facility] 02/13/2024 13:12:27 Social History None recorded. Functional [...] ICD10 Code Diagnosis IMO Codes Diagnosis Note 54186 DOUG BARAJAS MD [facility] [address] [address] 02/13/2024 13:05:43 02/13/2024 13:37:28 Allergic rhinitis 27848017 J30.9 68-year-ol d female with a history [...] tube. Disorder o f right Eustachian tube 2896335077 425920 H69.81 Health Concerns Section Related Observation LastModified by Organization Detai ls LastModified Time None Recorded Concern Status LastModified by Organization Details LastModified Time None Recorded Advance Directives Directive None Recorded Payers Insurance Date Sequence Insurance Name Policy Number Policy Solo Covered Member ID Solo Member ID Guarantor Name 08/17/2024 1 [place] B[place]: [employer] Flaquita Galindodeepakemilee [id number] Flaquita Ish 08/17/2024 2 [place] [employer] [id number] Flaquita Cali Ish [id number] Flaquita Ish Notes Date Note Type Note Provider Name and Address Organization Details Recorded Time 02/13/2024 text/html ROS as noted in the HPI Shooting pain last in right ear, better by Friday. Pain [...] NPL showed no mass. DOUG BARAJAS MD [address] [place] [address], [place], [address], [facility] - [facility] 02/13/2024 17:41:42 OBGyn Episode No OBEpisode recorded.
--- OUTSIDE RECORDS SUMMARY | 2025-05-31 20:08 | XMS_ITS | Encounter Summary ---
Author Organization [facility] Prior to 04/23/[address] [place] [address] Care Team Providers Care Medication Assistant Name Role Phone Vincent Polanco MD Primary Care Provider [phone] Reason for Visit * Reason Onset Date Comments Prior Authorization 05/25/2013 pantoprazole (PROTONIX) 20 MG tablet Encounter Details Date Type Department Care Team Description 05/25/2013 Telephone Adult Medicine [address] [address] Vincent Polanco MD [address] [place] [address] Prior Authorization (pantoprazole (PROTONIX) 20 MG tablet) Social History Tobacco Use Types Packs/Day Years [...] Telephone Encounter - Janee Machuca L.P.N. - 05/25/2013 10:58 AM EST Msg printed for PA * Telephone Encounter - Darryn Cris - 05/25/2013 10:46 AM EST Pre Authorization for Medication Form to triage Does the patient already have this medication?NO Name of Medication pantoprazole (PROTONIX) Dose of Medication 20 mg How does patient take this med? TAKE 1 TABLET BY MOUTH DAILY. What other dosage or similar medication have you tried in the past for this problem n/a Patients current medical insurance BCBS What Prescription Plan does the patient have? N/a Prescription Plan Tel # from back of prescription ID card What is the patients Prescription Plan ID #? [id number] What Pharmacy does the patient use? [facility] POS Plan: FEP BASIC $25/$35 [place] Product Type: PPO Log-[employer]x-Siixygn documented in this encounter Plan of Treatment Not on file documented as of this encounter Visit Diagnoses Not on filedocumented in this encounter Care Teams Medication Assistant Relationship Specialty Start Date End Date Vincent Polanco MD [address] [place] [address] PCP - General 07/12/02 documented as of this encounter
--- OUTSIDE RECORDS SUMMARY | 2025-05-31 20:08 | XMS_ITS | Encounter Summary ---
Author Organization [facility] Prior to 04/23/2024 Address [address] [place] [address] Care Team Providers Care Verification Engineer Name Role Phone Vincent Polanco MD Primary Care Provider [phone] Encounter Details Date Type Department Care Team Description 08/19/2018 Telephone Rheumatology - [address] [address] Yousif Sandoval MD Social History Tobacco Use [...] encounter Miscellaneous Notes * Telephone Encounter - Katalina Shannon M.A. - 08/20/2018 4:46 PM EST Pt called and informed. 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 * Telephone Encounter - Katalina Shannon M.A. - 08/20/2018 8:33 AM EST Message left for patient to return my call. * Telephone Encounter - Katalina Shannon M.A. - 08/19/2018 4:24 PM EST Message left for patient to return my call. * Telephone Encounter - Katalina Shannon M.A. - 08/19/2018 10:27 AM EST Message left for patient to return my call. * Telephone Encounter - Yousif Sandoval MD - 08/19/2018 7:38 AM EST Cecile please call patient [phone] (home) Her insurance is denying pantoprazole. She should Try omeprazole if she has not allergy. I could send that in if she wishes but it is available OTC so they may not pay for that either Dr. Sandoval documented in this encounter Plan of Treatment Not on file documented as of this encounter Visit Diagnoses Not on filedocumented in this encounter Care Teams Verification Engineer Relationship Specialty Start Date End Date Vincent Polanco MD [address] [place] [address] PCP - General 07/12/02 documented as of this encounter
--- OUTSIDE RECORDS SUMMARY | 2025-05-31 20:08 | XMS_ITS | Encounter Summary ---
Author Organization [facility] Prior to 04/23/2024 Address [address] [place] [address] Care Team Providers Care Research Scientist Name Role Phone Vincent Polanco MD Primary Care Provider Encounter Details Date Type Department Care Team Description 02/10/2017 Hospital Medical Records [address] [place] [address] Hardik Hays MD [address] [place] [address] Social History Tobacco Use Types Packs/Day Years [...] on filedocumented in this encounter Care Teams Research Scientist Relationship Specialty Start Date End Date Vincent Polanco MD [address] [place] [address] PCP - General 07/12/02 documented as of this encounter
--- OUTSIDE RECORDS SUMMARY | 2025-05-31 20:08 | XMS_ITS | Clinical Summary ---
Author Organization [facility] Facility Address [address] [address] Care Team Providers Care Urgent Care Technician Name Role Phone Vincent Polanco MD Primary Care Provider Allergies Active Allergy Reactions Criticality Noted Date [...] a day 05/11/2020 Active ergocalciferol 1.25 MG (98781 UT) capsule Take 1 capsule (50,000 Units [...] Wit h Preservative 04/23/2018 PPD Test 10/15/2010 [employer] SARS-COV-2 09/27/2021,10/08/2020,09/16/19 21 Pneumococcal Conjugate 13-Valent 09/12/2014 [...] patient's age to complete this topic Insurance [facility] Medicare [facility] Medicare Care Teams Urgent Care Technician Relationship Specialty Start Date End Date Vincent Polanco MD PCP - General 07/03/20
--- OUTSIDE RECORDS SUMMARY | 2025-05-31 20:08 | XMS_ITS | Encounter Summary ---
Author Organization [facility] Prior to 04/23/[address] [place] [id number] Care Team Providers Care Business Division Chair Name Role Phone Vincent Polanco MD Primary Care Provider [phone] Encounter Details Date Type Department Care Team Description 10/16/2022 Etiologist Report Medical Records [address] [place] [id number] Flavio Foster MD Social History Tobacco Use [...] Exposure Response Date Recorded In the last 10 days, have yo u been in contact with someone who was confirmed or suspected to have Coronavirus/COVID-19? No / Unsure 10/08/2022 12:32 PM EDT documented as of this encounter Plan of Treatment Not on file documented as of this encounter Visit Diagnoses Not on filedocumented in this encounter Care Teams Business Division Chair Relationship Specialty Start Date End Date Vincent Polanco MD [address] [place] [id number] PCP - General 07/12/02 documented as of this encounter
== END 2025-05-31 13:07 | disposition home or self-care (01) ==
LOC: HO.HKASLDS 13:06
PROVIDERS: PCP Internal Medicine; Visit Provider Internal Medicine Rheumatology
DX: M06.9 Rheumatoid arthritis, unspecified (principal); R74.01 Elevation of levels of liver transaminase levels; M17.0 Bilateral primary osteoarthritis of knee; Z79.899 Other long term (current) drug therapy
CPT/HCPCS: 36415; 82565; 99212